=== PATIENT | male | born 1960 | race Caucasian/White ===

== ENCOUNTER 2016-04-19 13:58 | Inpatient (IN) | payer BC ==
[2016-04-19] VITALS (12 sets, daily range): BP systolic 76–152; BP diastolic 58–92
[~2016-04-19] VITALS: Ht 182.9 cm; Wt 78.5 kg
--- NOTE | ~2016-04-19 | H ---
[facility] [place] [address] HISTORY AND PHYSICAL Name: ROWAN CHACON Room #: 546-P ADM IN M.R.#: [id number] Admission: 04/19/16 Attend Phys: Charles Fink MD Discharge: Date of : 62 Report #: [id number] THIS REPORT FOR: //name// CC: Shay Yao MD [facility] Mady Dobson PhD Warren Jackson MD DATE OF SERVICE: 04/19/2016 CHIEF COMPLAINT: Altered mental status. HISTORY OF PRESENT ILLNESS: The patient is a 55-year-old male who approximately 2 weeks ago suffered a stroke. He was found down at home in the garage, crumpled over his walker and taken to [facility] by ambulance. He was down for an unknown period of time. Workup there revealed a small subarachnoid bleed, presumably due to trauma, which required no further intervention. He also had multiple small embolic infarcts in a wide distribution. Extensive workup including echocardiogram, transesophageal echocardiogram, multiple brain scans failed to reveal any other significant findings or source of the microemboli. On presentation, the patient showed a global loss of function and had been put on a ventilator. However, he recovered consciousness within 24 hours and was removed from the ventilator by the following morning. Since that time, he has had significant problems with paranoia and agitation and generalized confusion. It is noteworthy that prior to this stroke, the patient suffered a stroke back in the November or December timeframe in 2016. Subsequent to that, he underwent left carotid endarterectomy here at [facility], successfully. Since his condition stabilized and no other significant findings were made, the patient transferred to the rehab unit at [facility] on April 12 and has been there ever since until today. He was in the rehabilitation unit for the entire period unfortunately because of continuing problems with paranoia and mood control issues. He has failed to make any progress and actually gotten worse. He has significant paranoia continually when he is awake and was seen in consultation by the neurologist, Dr. Houston; the psychiatrist, Dr. Jackson, and subsequently his colleague, Dr. Rosario, as well as by Dr. Vahe Yao from Cardiology and his care was managed by Dr. Clemens. Belatedly, the patient was also seen at my request by Dr. Charles Voss. He does have a significantly elevated sedimentation rate and confirmed by CRP. He is in the midst of a vasculitis workup and it was felt that because of his continuing problems with his mental [address] [place] [address] HISTORY AND PHYSICAL Name: ROWAN CHACON Room #: 546-P [facility] IN M.R.#: [id number] Admission: 04/19/16 Attend Phys: Charles Fink MD Discharge: Date of : 62 Report #: [id number] health that it would be reasonable to initiate a lupus vasculitis therapeutic regimen with 1000 mg of intravenous steroids daily for the next 3 days. Given the patient's underlying paranoia and agitation as well as chronic type 2 diabetes mellitus, it was felt that he could best be managed in an acute care hospital bed setting and he is being admitted at [facility] for treatment as outlined above. He also will be magnetic resonance angiography of his brain to see if any diagnostic evidence can be found there to support the diagnosis. Prior to he is being transferred, a Igor viper venom test came back elevated, but is insufficient in and of itself to make any complete diagnosis. It is suggestive of the presence of lupus anticoagulants, but not diagnostic. PAST MEDICAL HISTORY: Very extensive and includes multiple medical problems including testicular cancer in his 20s and treatment for that including radiation, hypertension, type 2 diabetes mellitus with significant peripheral neuropathy, Peyronie's disease with implantation of testicular implant and that was subsequently removed 5 years later and another one was implanted. The patient does have a history of bipolar affective disorder, some chronic anemia, gastroesophageal reflux disease, recurrent gout, osteoarthritis at multiple sites, especially the lumbar spine with chronic back stiffness and pain. He has recurrent prostatitis. He has a history of psoriasis. There is a history of multiple orthopedic surgeries is the past, history of a sigmoid resection because of a perforated diverticulitis, history of appendectomy and cholecystectomy in the same time several years ago, history of left carotid endarterectomy last December here at [facility], history of dental implants and he has some peripheral arterial disease including left renal stent. He is allergic to PENICILLIN. This causes anaphylactic reaction. 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 This was reversible. Please note, the patient does have a significant history of approximately 50-pound weight loss since last November and has not been eating well prior to this most recent stroke. MEDICATIONS: At the time of this acute care admission include the following: Acetaminophen, allopurinol, alprazolam, aspirin, bisacodyl, cholecalciferol, clopidogrel, colchicine, divalproex, docosahexaenoic acid, docusate, famotidine, ferrous sulfate, Levemir, Humalog, lamotrigine, levothyroxine (for hypothyroidism recently diagnosed), lisinopril, magnesium hydroxide, multivitamins with iron, nicotine gum, oxycodone/acetaminophen 10/325 one tablet every 6 hours as needed for pain, Seroquel, recently increased to 150 mg at bedtime as well as 25 mg by mouth every 4 hours as needed for agitation and confusion, scopolamine patches 1 patch changed every 3 days for chronic dizziness since the stroke the first time, Senokot 1 tablet by mouth daily as needed for constipation, thiamine hydrochloride 100 mg by mouth daily and he has been getting some intravenous fluids containing sodium chloride, because of some dehydration yesterday. [facility] [address] [place] [address] HISTORY AND PHYSICAL Name: ROWAN CHACON Room #: 546-P [facility] IN ..#: [id number] Admission: 04/19/16 Attend Phys: Charles Fink MD Discharge: Date of : 62 Report #: [id number] FAMILY HISTORY: The patient is adopted. SOCIAL HISTORY: The patient is to Nena Fink. 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 He had been a smoker for many years and has been trying to quit recently using an e-cigarette. He drank heavily when he was a young man, but quit about [address] drugs. He has no children and lives in [place]. REVIEW OF SYSTEMS: The patient is at present an unreliable historian. PHYSICAL EXAMINATION: GENERAL: The patient is somewhat cantankerous middle-aged white male who is very suspicious of most everyone he talks to. This has only been going on since the stroke. HEENT: The extraocular muscles are intact. The oropharynx is slightly dry and pink. No lesions, no exudates. Sinuses are nontender. Hearing is grossly normal. NECK: Without adenopathy or thyromegaly or mass or significant other problem. He does have left carotid endarterectomy scar and a slight bruit. LUNGS: Fairly clear bilaterally. The lumbar spine is stiff with minimal tenderness. The lungs are otherwise fairly clear with a prolonged expiratory phase. CARDIOVASCULAR: Regular with a grade 2/6 systolic ejection murmur. ABDOMEN: Soft. Bowel sounds are present, no visceromegaly or masses. Old surgical scars noted. EXTREMITIES: The patient has peripheral pulses that are easily palpated in all 4 distal extremities. Deep tendon reflexes are brisk in the arms and legs. He has significant generalized weakness more noticeable on the right side, especially to right upper extremity than on the left. On motor exam, he is able to ambulate with a roller walker and a great deal of assistance. ASSESSMENT AND PLAN: 1. Stroke, multiembolic with paranoia and pseudobulbar affect. 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 Charles Voss, I will proceed with MRA of this brain and start a very high dose intravenous steroid regimen for the next 3 days. This will require close glucose monitoring and sliding scale in addition to his usual insulin doses. I have spoken with the patient's about steroid range and got her consent to proceed with restraints in the event that they are over needed during this hospital stay. 2. Type 2 diabetes mellitus with peripheral neuropathy. He does have some sensory losses in a stocking distribution in both lower extremities, which I neglected to mention above. [facility] [address] [place] [address] HISTORY AND PHYSICAL Name: ROWAN CHACON Room #: 546-P [facility] IN M.R.#: [id number] Admission: 04/19/16 Attend Phys: Charles Fink MD Discharge: Date of : 62 Report #: [id number] 3. Hypertension. Creatinine 1.9. I suspect the creatinine has bumped up a little bit because of some dehydration. He is currently receiving some IV fluids and will continue them and monitor his electrolytes and renal functions appropriately. If he does have vasculitis, this might explain some of his renal dysfunction. He likely has some chronic kidney disease as well from the presence of hypertension and type 2 diabetes. 4. Suspected vascular dementia. The patient has had a stroke that was documented last year and presence of smaller stroke findings which were clinically silent raises the question whether some of his mental status problems might not be due to a dementia. Obviously treating the underlying causes and helping with the recovery of his physical and mental faculties are most important. 5. Bipolar affective disorder. We will continue with the lamotrigine. It is currently being up tapered back to the 100 mg twice a day that he was previously taking. A note is made of the potential interaction with divalproex. 6. Protein-calorie malnutrition with recent weight loss. This is presumably due to his mental status issues which would probably affecting him significantly since the first stroke. 7. Anemia and chronic inflammation. The patient is currently receiving iron supplements and will need to be reassessed longitudinally with this. 8. Hypothyroidism. The patient just started on levothyroxine recently. His TSH was approximately 6. We will reassess him again in the next 3 months. 9. Recent history of rapid taper off of gabapentin. This is mentioned for the sake of completeness as it may cause significant mental status issues including anxiety and agitation problems. The patient has had an EEG during his rehabilitation stay and this was negative. 10. Gastroesophageal reflux disease, currently fairly stable. 11. History of gout, not currently active. 12. History of osteoarthritis at multiple sites, but especially in the lumbar spine. 13. History of recurrent prostatitis, no evidence of disease at the present time. 14. History of psoriasis. He has good hepatic function at the present time. 15. Distant history of testicular cancer. 16. History of multiple orthopedic surgeries is the past. 17. History of sigmoid resection for perforated diverticulitis in the past. 18. History of carotid endarterectomy on the left side. 19. History of cholecystectomy and appendectomy. 20. History of dental implants. 21. History of Peyronie's disease with penile implants x 2. 22. History of peripheral arterial disease with a left renal stent placement. <ELECTRONICALLY SIGNED> By: Charles Fink MD 04/20/16 2326 [id number] Charles Fink MD /nt
--- NOTE | ~2016-04-19 | EEG ---
[facility] [place] [address] ELECTROENCEPHALOGRAM Name: ROWAN CHACON Room #: 446-P [facility] IN M.R.#: [id number] Admission: 04/19/16 Attend Phys: Charles Fink MD Discharge: 05/03/16 Date of : 62 Report #: [id number] THIS REPORT FOR: //name// CC: Charles Fink DATE OF SERVICE: 04/30/2016 This patient is being evaluated for altered mental status. EEG was done to further evaluate that. EEG was done by placing the electrodes by standard 10-20 system of electrode placement. Both referential and sequential montages were used for recording. Background activity in this patient's EEG is about 8-9 Hz, but it is intermixed with theta range slowing even when the patient is awake. The patient goes to sleep that is associated with bilaterally symmetrical sleep spindle and vertex sharp waves. Throughout the record, no active epileptiform activity was noticed. IMPRESSION: This patient's EEG is intermixed with theta range slowing on both sides. That is a nonspecific abnormality, which can occur with dementia, encephalopathy, effect of psychotropic medication. The abnormality is relatively mild compared to the patient's clinical status. Thank you very much for this referral. <ELECTRONICALLY SIGNED> By: Charlie Dsouza MD 05/08/16 0628 [id number] [id number] Charlie Dsouza MD /nt
--- NOTE | ~2016-04-19 | HC ---
[facility] [place] [address] CONSULTATION Name: ROWAN CHACON Room #: 446-P [facility] IN M.R.#: [id number] Admission: 04/19/16 Attend Phys: Charles Fink MD Discharge: 05/03/16 Date of : 62 Report #: [id number] THIS REPORT FOR: //name// CC: Shay Yao MD [facility] Mady Jackson MD REFERRING PHYSICIAN: Charles Fink M.D. HISTORY OF PRESENT ILLNESS: This is a 55-year-old male patient who was evaluated by me for a complicated history. I saw the patient yesterday evening, but the note is being dictated today because I wanted to talk to the patient's and Dr. Fink, who kindly called me and updated me on this patient's history. I talked to the today and Dr. Fink yesterday. This patient apparently has a bipolar disorder for a long time. He was able to take care of his daily activity and business without much problems till about last year. He suffered a stroke in the left cerebral hemisphere and underwent a carotid endarterectomy. Dr. Fink admission and history indicate that he was admitted to [facility] and was found to have multiple small embolic strokes as well as subarachnoid hemorrhage. No records is available to me from [facility], but as I understand he underwent a transesophageal echocardiogram and multiple brain scans. I assumed there was no documented atrial fibrillation at that time and workup for endocarditis was negative. He continued to have significant medical problems. He is extremely paranoid. He starts a conversation, but cannot stay on that topic for too long and drifts to another topic within a few seconds. That makes most of this conversation irrelevant and disjointed. I cannot get any reliable history in this patient. He did have an MRI of the brain here. I reviewed that and reviewed with the radiologist. He has multiple areas of abnormality, which is most likely secondary to ischemic changes, but other etiologies including demyelination cannot be fully excluded on the basis of MRI, but they are considered unlikely in the presence of acellular CSF. Talking to Dr. Fnik, it would appear that his mentation improved significantly when steroids are given to him. He did undergo a cerebral angiogram and apparently that did not show any vasculitis, but I do not know whether they had a good venous phase to exclude an outside chance of intracranial sinus thrombosis. He continued to be extremely paranoid and is being followed by Psychiatry. [address] [address] CONSULTATION Name: ROWAN CHACON Room #: 446-P [facility] IN M.R.#: [id number] Admission: 04/19/16 Attend Phys: Charles Fink MD Discharge: 05/03/16 Date of : 62 Report #: [id number] REVIEW OF SYSTEMS: Indicate that he does have vascular risk factors which include smoking for long period of time, which he has recently quit. His lipid profile indicates dyslipidemia. He also has a history of hypertension and diabetes as per records. He has numerous other problems which is summarized in Dr. Fink' admission history and physical and was reviewed. PAST MEDICAL HISTORY: Positive for what appeared to be multiple strokes during his admission in [place] and a stroke in December with documented vascular disease. FAMILY HISTORY: Unremarkable. SOCIAL HISTORY: He has a previous history of drinking alcohol, but has not done for a long time and he also has a history of smoking for a long time. PHYSICAL EXAMINATION: Attempted yesterday and today. It was unsuccessful both times. He is extremely paranoid. I cannot do an exam on him because he is constantly crying. Yesterday he was paranoid and will not let me look at many things and intermittently got angry. I do not see any meningeal sign and I will have to carry out an exam some other time. He does not appear to have any documented atrial fibrillation. He is a reasonably well-developed individual who does not have any dysmorphic features of eyes, ears and face. His vital signs indicate a blood pressure of 130/81 and review of his vital signs last few days indicate that his blood pressure has gone some high around 190 or 200, but he never had any low blood pressure recently. Last time, his blood pressure drops was on 04/25/2016 when it was 94. His pulse is 96 and he has been mostly afebrile and his respiration is 20. LABORATORY DATA: I reviewed all his films with the radiologist and some of it is described above. IMPRESSION: The diagnosis in this patient is not clear, but multiple diagnoses need to be considered in this patient. 1. 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 This is probably the most common diagnosis in this circumstance. He has multiple vascular risk factors including previous smoking, diabetes, hypertension. He also has dyslipidemia. Main treatment so far is going to be with antiplatelet as well as statin. The treatment will change if we can either document atrial fibrillation or intracranial sinus thrombosis or any vasculitis. So far, there is no documentation of vasculitis. Idiopathic central nervous system angitis is extremely rare with acellular cerebrospinal fluid, is a tricky diagnosis and can be missed even after extensive workup sometimes. 2. Autoimmune encephalopathy. That needs to be considered in this patient. Reviewing the record, it would appear that this patient did have testicular cancer in the past. I do not know what pathology was in that circumstance, but we need to pull that out. NMDA receptor autoimmune encephalitis occur in female [facility] [address] [place] [address] CONSULTATION Name: ROWAN CHACON Room #: 446-P DIS IN M.R.#: [id number] Admission: 04/19/16 Attend Phys: Charles Fink MD Discharge: 05/03/16 Date of : 62 Report #: [id number] secondary to ovarian cancer and in male secondary to testicular cancer as a perineoplastic process. However, typically they have cellular cerebrospinal fluid and this patient's cerebrospinal fluid is acellular, although the protein is trace high. That is the point again, autoimmune encephalitis and is more in favor of vascular dementia secondary to routine atherosclerotic factor. Diagnosis of Yumiko encephalitis was considered in this patient. That encephalitis occurs without much abnormality of thyroid function. They are diagnosed on the basis of antithyroid antibodies. We will exclude that possibility by sending that workup. 3. Possibility of autoimmune dementia was considered, but again, although the patient has multiple abnormal autoimmune markers, the cerebrospinal is acellular. That is not typical for autoimmune dementia. 4. Medication side effects were considered. His gabapentin was tapered off or discontinued. Withdrawal from gabapentin is extremely, if it ever occurs and that is unlikely to be the causative factor in this patient. He is on scopolamine patch. That can cause delirium. 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 5. Porphyria can cause deliriums and confusion and neuropathy. It is extremely rare that I have never seen a case, although I have sent numerous patients on for porphyria screen. RECOMMENDATION: 1. Continue the management of the vascular risk factor in this patient. He needs antiplatelet as well as statin. We need to ask radiologist to look at the angiogram to make sure that there was a venous phase. If there was a good venous phase, which can exclude the possibility of intracranial sinus thrombosis, then I do not think we need to do anything more in that regard. Otherwise, we can MRV. 2. We will see if the patient's CSF demonstrates any oligoclonal band or IgG index. If it does that, that can indicate autoimmune disorder in this setting. That can also indicate demyelinating disorder, but both these are nonspecific indicators. If these markers are negative, that will reinforce the possibility that the neurological presentation is more likely to be secondary to vascular dementia caused by multiple strokes. 3. We need to pull the record from [place] to make sure they did extensive workup to exclude the possibility of endocarditis including autoimmune related endocarditis. Those are difficult diagnoses to make. Possibility of atrial fibrillation need to be excluded, but I am sure they did some workup to exclude that possibility and the history does not look very typical for that. Those MRI need to be reviewed by some neuroradiologist to make sure that those strokes were embolic, because stroke secondary to small vessel disease can resemble embolic stroke and sometime are difficult to distinguish one from another. His DRVT was high. If he is hypercoagulable, that will be predisposing him for stroke, but that is typically venous stroke, not arterial or small vessel [facility] [address] [place] [address] CONSULTATION Name: ROWAN CHACON Room #: 446-P DIS IN M.R.#: [id number] Admission: 04/19/16 Attend Phys: Charles Fink MD Discharge: 05/03/16 Date of : 62 Report #: [id number] stroke. Once again that question can be addressed by hematology or rheumatology. 4. He is on Lovenox. He did not let me examine him very much. He did have a spinal tap, but that was 3 days ago, we can just watch him closely. 5. Celiac disease has been found to see DIVE SUPERVISOR symptoms. I notice that one time, he did have some GI symptoms and I do not know whether it is worth checking him for celiac disease or not, or whether he has been checked in the past. I did not order that workup on him. I will discuss this patient with Dr. Fink tomorrow and I am not here tomorrow but I will ask Dr. Houston who has seen this patient to follow up from tomorrow. More than 70 minutes of time was spent taking care of this patient and majority of that time was spent in reviewing his records and images and discussing the case with his family and other health inspector health care facilities <ELECTRONICALLY SIGNED> By: Charlie Dsouza MD 05/08/16 0627 [id number] Charlie Dsouza MD /nt
--- NOTE | ~2016-04-19 | CNG ---
[facility] [address] [place] [address] CYTO-NONGYN REPORT PROCEDURE Name: DAVID CHACON Room #: 446-P ADM IN M.R.#: [id number] Admission: 04/19/16 Date of : 62 Discharge: Report #: [id number] Path Case #: [id number] CYTOPATHOLOGY REPORT COLLECTION DATE: 04/27/2016 RECEIVED DATE: 04/27/2016 SUBMITTING PHYS: Dr.Mark Fink OTHER PHYS: CLINICAL HISTORY: Lupus Vasculitis SPECIMEN(S) RECEIVED: A.Cerebrospinal fluid * * * * * * * * * * * * FINAL DIAGNOSIS: A. Cerebrospinal fluid: - No malignant cells identified. Small mature lymphocytes identified, history of lupus vasculitis. Negative for viral inclusions. PATHOLOGIST: Annabelle Nam M.D. REPORT ELECTRONICALLY SIGNED BY: Annabelle Nam M.D. DATE/TIME: 04/28/2016 16:53 * * * * * * * * * * * * GROSS PATHOLOGY: A. Cerebrospinal fluid: The specimen is submitted unfixed, labeled "David Chacon". Received by the Cytology Department is four mL of clear colorless fluid. One ThinPrep slide was prepared. (mm 04.27.2016) STAFF CERTIFIED NURSE MIDWIFE(S): ALVINO Marshall([facility]) INITIAL CPT CODE(S): A; 45897 Professional services performed by [facility] at [address], [place] [address] Technical services performed by [facility] at [address] [place] [address]., [address], [place] [address]. [facility] [address] [place] [address], [address] [place] [address] [place] [address] CYTO-NONGYN REPORT PROCEDURE Name: DAVID CHACON FARHAT Room #: 446-P ADM IN M.R.#: [id number] Admission: 04/19/16 Date of : 62 Discharge: Report #: [id number] Path Case #: [id number] PHONE: [phone] DIRECTOR: Jose Clarke M.D. * * * END OF REPORT * * *
[~2016-04-19 13:58] MED LIST: ACCUNEB SO1.25 MG/1; ADVAIR HFA115 MCG/21 INH; ALLOPURINOL 30300 M1 PO; ALLOPURINOL 30300 M2 PO; AMLODIPINE BESYL5 MG PO; APIDRA; ASPIR 8181 MG PO; ASPIRIN EC81 M1 PO; BACTRIM DS TAB1 EACH PO; CENTRUM SILVER1 EAC2 PO; CLEOCIN HCL150 MG; COLCHICINE 0.60.6 M1 PO; COLCRYS0.6 MG PO; CRESTOR10 MG PO; DOLOPHINE HCL5 MG PO; DOXYCYCLINE 10100 M1 PO; FAMOTIDINE20 MG/2 M2 PO; FISH OIL 1,001000 M2 PO; FLEXERIL PO; FLORANEX TABLE1 EACH PO; FLUVIRIN 245 MCG/0.8 IM; FOLIC ACID1 MG PO; GLYCOLAX POWDER17 G1 PO; HYDROCHLOROTHIA25 M2 PO; HYDROCODON-ACE1 EAC7 PO; HYDROCODONE-AP1 EAC6 PO; LAMICTAL XR100 MG PO; LAMICTAL100 MG PO; LANTUS SOL100 UNIT/1 SQ; LANTUS SUBQ; LANTUS100 UNIT/M SUBQ; LEVAQUIN 500 M500 M2 PO; LISINOPRIL10 MG PO; LISINOPRIL20 MG PO; LOPRESSOR50 PO; MAGNESIUM OXID400 MG PO; MIRALAX17 GM PO; MOBIC7.5 MG PO; MULTI-VITAMIN1 EAC5 PO; NEURONTIN 300300 M1 PO; NEURONTIN600 MG PO; NEXIUM40 MG PO; NICOTINE GUM2 MG MUCOUS MEM; NORVASC 5 MG TAB5 MG PO; NORVASC10 MG PO; NOVOLOG FL100 UNIT/M SUBQ; NOVOLOG100 UNIT/1 SUBQ; OMEPRAZOLE 20 M20 M1 PO; OXYCODONE HCL5 M1 PO; OXYCODONE PO; OXYCONTIN CR 2020 MG PO; OXYCONTIN10 M1 PO; OXYCONTIN10 MG PO; OXYCONTIN20 M1 PO; PAXIL10 MG; PLAVIX 75 MG TA75 M1 PO; POTASSIUM20 PO; PREDNISONE 10 M10 MG PO; PREDNISONE 5 MG5 M1; PREDNISONE 5 MG5 M1 PO; PRILOSEC 20 MG20 MG PO; PROBIOTIC1 EAC1 PO; TIZANIDINE HCL 22 M1 PO; TRANSDERM-SCO1 PATC1; TRANSDERM-SCO1 PATC1 TD; TYLENOL325 MG PO; VENTOLIN HFA 1818 GM INH; VOLTAREN GEL 1100 G1 TOP; XANAX 0.5 MG0.5 M1 PO; ZOFRAN ODT4 MG PO
[2016-04-19] MEDS ORDERED: ADULT LOW DOSE81 MG PO (14:12)
[2016-04-19] MEDS ORDERED: SEROQUEL 25 MG25 M1 PO (14:12)
[2016-04-19] MEDS ORDERED: ALLOPURINOL 30300 M1 PO (14:12)
[2016-04-19] MEDS ORDERED: FISH OIL 1,0001 EAC5 PO (14:12)
[2016-04-19] MEDS ORDERED: DEPAKOTE 250MG250 M1 PO (14:12)
[2016-04-19] MEDS ORDERED: SENNA PO (14:12)
[2016-04-19] MEDS ORDERED: TRANSDERM-SCO1 PATC1 TRANSDERM (14:12)
[2016-04-19] MEDS ORDERED: PEPCID20 MG PO (14:12)
[2016-04-19] MEDS ORDERED: BISAC-EVAC10 MG RECTAL (14:12)
[2016-04-19] MEDS ORDERED: HUMALOG100 UNIT/1 SUBQ (14:12)
[2016-04-19] MEDS ORDERED: SEROQUEL XR150 M1 PO (14:12)
[2016-04-19] MEDS ORDERED: COLCHICINE0.6 MG PO (14:12)
[2016-04-19] MEDS ORDERED: LEVOTHYROXINE0.05 MG PO (14:12)
[2016-04-19] MEDS ORDERED: VITAMIN B-1100 M2 PO (14:12)
[2016-04-19] MEDS ORDERED: LANTUS100 UNIT/M SUBQ (14:12)
[2016-04-19] MEDS ORDERED: ALPRAZOLAM 0.50.5 M1 PO ×2 (14:12)
[2016-04-19] MEDS ORDERED: LAMICTAL 25 MG25 M1 PO (14:12)
[2016-04-19] MEDS ORDERED: VITAMIN D1000 UNI1 PO (14:12)
[2016-04-19] MEDS ORDERED: IRON325 PO (14:12)
[2016-04-19] MEDS ORDERED: PERCOCET 10-321 EACH PO (14:12)
[2016-04-19] MEDS ORDERED: A THRU Z ADVAN1 EAC1 PO (14:12)
[2016-04-19] MEDS ORDERED: BENAZEPRIL HCL20 MG PO (14:16)
[2016-04-19] MEDS ORDERED: ACETAMINOPHEN325 M1 PO (14:18)
[2016-04-20 01:00] VITALS: BP 120/69
[2016-04-20 02:00] VITALS: BP 120/69
[2016-04-20 03:00] VITALS: BP 159/69
[2016-04-20 05:23] LABS: HEMATOCRIT 29.9 % (42.0-52.0); MCH 29.7 pg (26.0-34.0); MCHC 33.4 g/dL (28.0-37.0); RBC 3.36 mil/uL (4.50-6.00); RDW 15.6 % (10.5-14.5); WBC 8.1 thou/uL (4.0-11.0)
[2016-04-20 05:35] LABS: CALCIUM 9.2 mg/dL (8.5-10.1); CREATININE 1.8 mg/dL (0.6-1.3); POTASSIUM 4.6 mmol/L (3.5-5.1)
[2016-04-20 08:36] VITALS: BP 166/85
[2016-04-20 16:00] VITALS: BP 168/82
[2016-04-20 19:35] VITALS: BP 97/62
[2016-04-21 08:20] VITALS: BP 117/82
[2016-04-21 15:30] VITALS: BP 102/68
[2016-04-21 22:00] VITALS: BP 106/66
[2016-04-22 05:53] VITALS: BP 101/58
[2016-04-22 05:54] VITALS: BP 101/58
[2016-04-22 05:59] LABS: HEMATOCRIT 29.3 % (42.0-52.0); HEMOGLOBIN 9.9 gm/dL (14.0-18.0); MCH 29.4 pg (26.0-34.0); MCHC 33.7 g/dL (28.0-37.0); MCV 87.3 fL (80.0-100.0); RBC 3.36 mil/uL (4.50-6.00); RDW 15.2 % (10.5-14.5); WBC 13.9 thou/uL (4.0-11.0)
[2016-04-22 06:19] LABS: CALCIUM 9.5 mg/dL (8.5-10.1); CREATININE 1.4 mg/dL (0.6-1.3); POTASSIUM 4.2 mmol/L (3.5-5.1)
[2016-04-22 07:47] VITALS: BP 132/84
[2016-04-22 09:00] VITALS: BP 144/82
[2016-04-22 16:11] VITALS: BP 144/82
[2016-04-23 05:30] VITALS: BP 184/113
[2016-04-23 20:10] VITALS: BP 184/91
[2016-04-24 07:10] LABS: HEMATOCRIT 32.6 % (42.0-52.0); HEMOGLOBIN 10.9 gm/dL (14.0-18.0); MCH 29.5 pg (26.0-34.0); MCHC 33.6 g/dL (28.0-37.0); MCV 87.8 fL (80.0-100.0); RBC 3.71 mil/uL (4.50-6.00); RDW 15.1 % (10.5-14.5); WBC 9.2 thou/uL (4.0-11.0)
[2016-04-24 07:29] LABS: CALCIUM 9.4 mg/dL (8.5-10.1); CREATININE 1.2 mg/dL (0.6-1.3); POTASSIUM 3.9 mmol/L (3.5-5.1); TOTAL BILIRUBIN 0.3 mg/dL (<0.1-1.0)
[2016-04-24 07:31] VITALS: BP 118/67
[2016-04-24 11:05] VITALS: BP 126/69
[2016-04-24 16:29] VITALS: BP 143/96
[2016-04-24 19:16] VITALS: BP 138/85
[2016-04-24 23:06] VITALS: BP 138/85
[2016-04-25 05:04] VITALS: BP 133/78
[2016-04-25 07:44] VITALS: BP 163/78
[2016-04-25 13:05] VITALS: BP 84/52
[2016-04-25 16:54] VITALS: BP 95/64
[2016-04-25 20:00] VITALS: BP 151/61
[2016-04-26] VITALS (9 sets, daily range): BP systolic 117–200; BP diastolic 63–101
[2016-04-26 10:41] LABS: ABSOLUTE NEUTROPHILS 8.6 thou/uL (1.4-8.2); BASOPHILS 0.5 % (0.0-2.0); EOSINOPHILS 1.7 % (0.0-3.0); HEMATOCRIT 32.7 % (42.0-52.0); HEMOGLOBIN 10.8 gm/dL (14.0-18.0); LYMPHOCYTES 33.1 % (24.0-44.0); MCH 29.4 pg (26.0-34.0); MCV 88.8 fL (80.0-100.0); MONOCYTES 4.6 % (1.0-8.0); PLATELET COUNT 239 thou/uL (150-400); POLYS 60.1 % (36.0-66.0); RBC 3.69 mil/uL (4.50-6.00); RDW 15.3 % (10.5-14.5); WBC 14.4 thou/uL (4.0-11.0)
[2016-04-26 10:44] LABS: MANUAL DIFF NO
[2016-04-26 10:54] LABS: APTT 26.6 Seconds (24.5-32.8); INR 1.1; PROTIME 11.4 Seconds (9.3-11.4)
[2016-04-26 10:59] LABS: CALCIUM 8.6 mg/dL (8.5-10.1); CREATININE 1.6 mg/dL (0.6-1.3); POTASSIUM 3.9 mmol/L (3.5-5.1)
[2016-04-26 13:12] LABS: ANTI-DNA SCREEN <1 IU/mL (0-9); ANTI-RNP <0.2 AI (0.0-0.9)
[2016-04-27] VITALS (8 sets, daily range): BP systolic 170–193; BP diastolic 89–104
[2016-04-27 05:12] LABS: HEMATOCRIT 31.7 % (42.0-52.0); HEMOGLOBIN 10.5 gm/dL (14.0-18.0); MCH 29.7 pg (26.0-34.0); MCHC 33.2 g/dL (28.0-37.0); MCV 89.4 fL (80.0-100.0); RBC 3.54 mil/uL (4.50-6.00); RDW 15.4 % (10.5-14.5)
[2016-04-27 05:24] LABS: CALCIUM 8.7 mg/dL (8.5-10.1); CREATININE 1.1 mg/dL (0.6-1.3); POTASSIUM 4.1 mmol/L (3.5-5.1)
[2016-04-27 11:42] LABS: CSF GLUCOSE 82 mg/dL (40-70); CSF PROTEIN 67 mg/dL (15-45)
[2016-04-27 11:44] LABS: CSF CLARITY CLEAR; CSF COLOR COLORLESS; CSF WBC 0 /mm3 (0-10); MANUAL DIFF NO; NUMBER OF TUBES 4; VOLUME 11 ml
[2016-04-28] VITALS (9 sets, daily range): BP systolic 132–149; BP diastolic 70–84
[2016-04-28 05:58] LABS: CALCIUM 9.4 mg/dL (8.5-10.1); CREATININE 1.1 mg/dL (0.6-1.3); POTASSIUM 4.6 mmol/L (3.5-5.1)
[2016-04-29] VITALS (8 sets, daily range): BP systolic 122–142; BP diastolic 74–90
[2016-04-30 05:20] VITALS: BP 137/81
[2016-04-30 08:55] VITALS: BP 145/93
[2016-04-30 13:42] VITALS: BP 130/81
[2016-04-30 20:13] VITALS: BP 131/88
[2016-04-30 21:37] LABS: URINE BILIRUBIN NEGATIVE (Negative); URINE BLOOD 2+ (Negative); URINE COLOR YELLOW; URINE GLUCOSE-RANDOM* TRACE (Negative); URINE KETONES NEGATIVE (Negative); URINE LEUKOCYTES-REFLEX 1+ (Negative); URINE PROTEIN (DIPSTICK) TRACE (Negative); URINE UROBILINOGEN 0.2 E.U./dl (0.2-1.0)
[2016-04-30 21:49] LABS: CRYSTALS None Seen /LPF (None Seen); SQUAMOUS None Seen /LPF (0-3)
[2016-04-30 21:50] LABS: TRANSITIONAL EPITHEL CELL 0-3 Few /LPF (None Seen)
[2016-04-30 21:51] LABS: CASTS None Seen /LPF (None Seen); RENAL EPITHELIAL CELLS 0-3 Few /LPF (None Seen)
[2016-05-01] VITALS (8 sets, daily range): BP systolic 98–170; BP diastolic 78–94
[2016-05-01 05:21] LABS: HEMATOCRIT 33.5 % (42.0-52.0); HEMOGLOBIN 11.1 gm/dL (14.0-18.0); MCH 29.7 pg (26.0-34.0); MCHC 33.3 g/dL (28.0-37.0); MCV 89.3 fL (80.0-100.0); RBC 3.75 mil/uL (4.50-6.00); RDW 15.7 % (10.5-14.5); WBC 16.2 thou/uL (4.0-11.0)
[2016-05-01 06:21] LABS: ALBUMIN 2.9 g/dL (3.4-5.0); CALCIUM 9.5 mg/dL (8.5-10.1); CREATININE 1.3 mg/dL (0.6-1.3); POTASSIUM 3.8 mmol/L (3.5-5.1); TOTAL BILIRUBIN 0.3 mg/dL (<0.1-1.0); TOTAL PROTEIN 6.6 g/dL (6.4-8.2)
[2016-05-01 15:11] LABS: CSF IgG 5.8 mg/dL (0.0-8.6)
[2016-05-01 16:07] LABS: MYELIN BASIC PROTEIN 4.3 ng/mL (0.0-1.2)
[2016-05-02] VITALS (7 sets, daily range): BP systolic 121–170; BP diastolic 74–100
[2016-05-03 04:15] VITALS: BP 111/47
[2016-05-03 06:20] VITALS: BP 148/91
[2016-05-03 11:47] VITALS: BP 131/72
[2016-05-03] MEDS ORDERED: CALTRATE-600 W1 EACH PO (12:23)
[2016-05-03] MEDS ORDERED: PREDNISONE 20 M20 M1 PO (12:23)
[2016-05-03] MEDS ORDERED: GLUTOSE GEL 1515 G1 PO (12:23)
[2016-05-03] MEDS ORDERED: DEPAKOTE500 MG PO (12:23)
[2016-05-03] MEDS ORDERED: ENOXAPARIN40 MG/0.1 SUBQ (12:23)
[2016-05-03] MEDS ORDERED: GLUCAGEN1 MG IM (12:23)
[2016-05-03] MEDS ORDERED: DEXTROSE 5025 GM/SYR IV PUSH (12:23)
[2016-05-03] MEDS ORDERED: SEROQUEL 50 MG50 M1 PO (12:38)
[2016-05-03] MEDS ORDERED: GLUCOSE4 GM PO (12:38)
[2016-05-03] MEDS ORDERED: SEROQUEL XR 20200 MG PO (12:38)
[2016-05-03] MEDS ORDERED: HYDROCODON-ACE1 EAC7 PO (12:38)
[2016-05-03] MEDS ORDERED: LANTUS100 UNIT/M SUBQ (12:38)
[2016-05-03] MEDS ORDERED: ONDANSETRON HCL4 M1 IV PUSH (12:38)
== END 2016-05-03 17:55 | DRG 97 ==
LOC: 5S 13:58 → 4S 04-26 16:32
PROVIDERS: Internal Medicine; Internal Medicine Rheumatology; Psychiatry & Neurology Neuromuscular Medicine; Radiology Vascular & Interventional Radiology
PROC: B3161ZZ Fluoroscopy of Right Internal Carotid Artery using Low Osmolar Contrast (ICD-10-PCS; principal; 2016-04-26)
PROC: B3141ZZ Fluoroscopy of Left Common Carotid Artery using Low Osmolar Contrast (ICD-10-PCS; principal; 2016-04-26)
PROC: B31Q1ZZ Fluoroscopy of Cervico-Cerebral Arch using Low Osmolar Contrast (ICD-10-PCS; principal; 2016-04-26)
PROC: B31F1ZZ Fluoroscopy of Left Vertebral Artery using Low Osmolar Contrast (ICD-10-PCS; principal; 2016-04-26)
PROC: B3111ZZ Fluoroscopy of Right Brachiocephalic-Subclavian Artery using Low Osmolar Contrast (ICD-10-PCS; 2016-04-26)
PROC: B3171ZZ Fluoroscopy of Left Internal Carotid Artery using Low Osmolar Contrast (ICD-10-PCS; 2016-04-26)
PROC: B3121ZZ Fluoroscopy of Left Subclavian Artery using Low Osmolar Contrast (ICD-10-PCS; 2016-04-26)
PROC: B3131ZZ Fluoroscopy of Right Common Carotid Artery using Low Osmolar Contrast (ICD-10-PCS; 2016-04-26)
PROC: B3101ZZ Fluoroscopy of Thoracic Aorta using Low Osmolar Contrast (ICD-10-PCS; 2016-04-26)
PROC: B44FZZZ Ultrasonography of Right Lower Extremity Arteries (ICD-10-PCS; 2016-04-26)
PROC: B01B1ZZ Fluoroscopy of Spinal Cord using Low Osmolar Contrast (ICD-10-PCS; 2016-04-27)
PROC: 009U3ZX Drainage of Spinal Canal, Percutaneous Approach, Diagnostic (ICD-10-PCS; 2016-04-27)
DX: G04.81 Other encephalitis and encephalomyelitis (principal); I63.211 Cerebral infarction due to unspecified occlusion or stenosis of right vertebral artery; F05 Delirium due to known physiological condition; I67.7 Cerebral arteritis, not elsewhere classified; E46 Unspecified protein-calorie malnutrition; N39.0 Urinary tract infection, site not specified; E80.20 Unspecified porphyria; I65.22 Occlusion and stenosis of left carotid artery; E78.00 Pure hypercholesterolemia, unspecified; F22 Delusional disorders; F48.2 Pseudobulbar affect; I10 Essential (primary) hypertension; E86.0 Dehydration; F01.50 Vascular dementia, unspecified severity, without behavioral disturbance, psychotic disturbance, mood disturbance, and anxiety; E11.42 Type 2 diabetes mellitus with diabetic polyneuropathy; I69.918 Other symptoms and signs involving cognitive functions following unspecified cerebrovascular disease; E11.51 Type 2 diabetes mellitus with diabetic peripheral angiopathy without gangrene; M10.9 Gout, unspecified; K74.60 Unspecified cirrhosis of liver; M47.896 Other spondylosis, lumbar region; K21.9 Gastro-esophageal reflux disease without esophagitis; F10.21 Alcohol dependence, in remission; F31.9 Bipolar disorder, unspecified; I25.10 Atherosclerotic heart disease of native coronary artery without angina pectoris; D63.8 Anemia in other chronic diseases classified elsewhere; E03.9 Hypothyroidism, unspecified; I95.1 Orthostatic hypotension; E78.5 Hyperlipidemia, unspecified; N48.6 Induration penis plastica; D72.829 Elevated white blood cell count, unspecified; F41.9 Anxiety disorder, unspecified; K75.81 Nonalcoholic steatohepatitis (NASH); T38.0X5A Adverse effect of glucocorticoids and synthetic analogues, initial encounter; Y92.89 Other specified places as the place of occurrence of the external cause; Z98.811 Dental restoration status; Z87.01 Personal history of pneumonia (recurrent); Z90.49 Acquired absence of other specified parts of digestive tract; Z68.23 Body mass index [BMI] 23.0-23.9, adult; Z88.6 Allergy status to analgesic agent; Z88.0 Allergy status to penicillin; Z88.2 Allergy status to sulfonamides; Z87.442 Personal history of urinary calculi; Z79.899 Other long term (current) drug therapy; Z85.47 Personal history of malignant neoplasm of testis; Z79.4 Long term (current) use of insulin; Z87.891 Personal history of nicotine dependence

== ENCOUNTER 2016-05-03 16:15 | Inpatient (IN) | payer BC ==
[~2016-05-03] VITALS: Ht 172.7 cm; Wt 73.2 kg
--- NOTE | ~2016-05-03 | HC ---
[facility] [place] [place] [address] CONSULTATION Name: ROWAN CHACON Room #: 503-P ADM IN M.R.#: [id number] Admission: 05/03/16 Attend Phys: Shay Clemens MD Discharge: Date of : 62 Report #: [id number] THIS REPORT FOR: //name// CC: Shay Fink DATE OF SERVICE: 05/06/2016 ATTENDING PHYSICIAN: Shay Clemens M.D. RAIL ENGINEER: Benjamin Dobson, PhD. CLINICAL PRESENTATION: The patient is a 55-year-old male readmitted to the rehabilitation unit for a comprehensive inpatient rehabilitation program. The patient has had a deterioration in functional status and carries a diagnosis of multiple embolic strokes, bipolar affective disorder and paranoia, diabetes mellitus type 2, peripheral neuropathy, suspected vascular dementia and renal insufficiency. He has had a complicated medical course. Patient initially was admitted to rehabilitation and then transferred off the unit secondary to a vasculitis workup. He has been readmitted to continue his inpatient rehabilitation program. His assessment on admission to rehab includes autoimmune encephalitis, multiple cerebrovascular accidents, bipolar affective disorder with paranoia, type 2 diabetes mellitus with peripheral neuropathy, recent history of rapid taper of gabapentin, history of gout, history of osteoarthritis in multiple sites, recurrent prostatitis, history of sigmoid resection for diverticulitis, history of left carotid endarterectomy, history of Peyronie's disease with penile implants times 2 and a history of peripheral arterial disease with left renal stent placement. A complete description of his medical condition, history and medications can be found in his medical record. Neuropsychological consultation was requested to provide assistance in the assessment of cognitive and emotional status and to provide recommendations and services. The patient was seen for an initial assessment upon his admission to the rehabilitation unit on 04/15/2016. He was living with his in their home prior to this recent deterioration in functioning. He has no children. The patient is the [id number] of Dr. Charles Fink. He has a very supportive family. 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 TECHNIQUES UTILIZED: Clinical interview, review of medical records, staff consultation and behavioral observation, Mini Mental Status Exam 2 standard version, abstract reasoning assessment and verbal fluency (letter and category). EXAMINATION FINDINGS: The patient was alert and cooperative with the [facility] [address] [place] [address] CONSULTATION Name: ROWAN CHACON Room #: 503-P [facility] IN M.R.#: [id number] Admission: 05/03/16 Attend Phys: Shay Clemens MD Discharge: Date of : 62 Report #: [id number] assessment. He has been presenting with intermittent confusion and disorientation during his rehabilitation admission. His behavior is described as agitated with temper outbursts with periods of crying and expressions of remorse. Intermittent emotional lability is described as severe with continued delusional ideation. On the day of my evaluation, he is reported to have been labile with periods of agitation and temper outbursts. At this time, he is feeling remorse and guilt over earlier behavior in which he lost his temper. The patient continues as tearful and emotional. He is unable to accurately describe events regard his recent hospitalization. The patient was unable to state the reason for his hospitalization or describe aspects of his recent medical treatment. The patient is unable to identify factual content of daily activity versus delusional ideation. Continued delirium is suggested. The patient reports difficulty with sleep and fatigue. However, he is an inaccurate historian in regard to cognitive and emotional symptoms. Frequent statements in regard to feelings of guilt about a recent temper outburst is expressed. His performance on the MMSE 2 brief version was extremely low with a raw score of 10/16. He was 3/3 for initial registration, 3/5 for orientation to time, 4/[address] and 0/3 for immediate recall of 3 items after a brief time delay and distraction. Performance on the MMSE 2 standard version was extremely low with a raw score of 18/30. He was 1/5 for serial 7's. He was 2/2 for naming, 1/1 for repetition and 3/3 for auditory comprehension. He was able to read and follow a single command. The patient was unable to dictate a sentence. Upper extremity deficits are noted and he was unable to copy a simple geometric design. Category fluency was extremely low with a raw score of 3. The patient was unable to comply with letter fluency because of severe deficits in generative speech, thought organization, planning and problem solving. Abstract reasoning was 3/8 suggesting a high level of impairment in abstract judgment. The patient is able to indicate appropriate procedures for calling for help when necessary during his hospitalization. DIAGNOSTIC IMPRESSION: Delirium, with mixed level of activity, chronic. Major neurocognitive disorder due to vascular disease (dementia), with intermittent agitation and irritability, moderate to severe (severe cognitive [facility] [address] [place] [address] CONSULTATION Name: ROWAN CHACNO Room #: 503-P [facility] IN M.R.#: [id number] Admission: 05/03/16 Attend Phys: Shay Clemens MD Discharge: Date of : 62 Report #: [id number] dysfunction). Bipolar disorder, mixed with psychotic features. Remote history of alcohol abuse. RECOMMENDATIONS: He is requiring psychiatric hospitalization at this time. His erratic and agitated behavior precede tearful episodes to an extent that suggests attempts at manipulating his environment without a productive purpose. The patient will require a supportive and well structured environment. Intermittent delirium will likely interfere with his recall, judgment, planning and problem solving. Delusional ideation along intermittent paranoid statements should be challenged gently with reality orientation. Redirection of attention to location, purpose of therapy and treatment and reason for hospitalization may help provide reassurance. The use of relaxation techniques will also be helpful. When agitated, the patient should be encouraged to focus on breathing and strategies to manage anxiety through distraction and reassurance. I will continue to follow during his hospitalization. Along with psychiatric hospitalization for stablization of mood and behavior, disability is indicated for employment as well as 24-hour care to maintain safety. Thank you very much for allowing me to provide the consultation on this patient. <ELECTRONICALLY SIGNED> By: Benjamin Dobson, PhD 05/07/16 1528 1548 2233 Benjamin Dobson, PhD /nt
--- NOTE | ~2016-05-03 | H ---
[facility] [place] [address] [place] [address] HISTORY AND PHYSICAL Name: ROWAN CHACON Room #: 503-P ADM IN M.R.#: [id number] Admission: 05/03/16 Attend Phys: Shay Clemens MD Discharge: Date of : 62 Report #: [id number] THIS REPORT FOR: //name// CC: Shay Fink DATE OF SERVICE: 05/04/2016 HISTORY OF PRESENT ILLNESS: The patient is readmitted for acute in-hospital inpatient rehabilitation. Please see the prior admission dictation. He has a history of multiple embolic strokes with bipolar affective disorder with paranoia, diabetes mellitus type 2, peripheral neuropathy, suspected vascular dementia and renal insufficiency. He had been on the acute inpatient rehab lee, but had issues with altered mental status and had continued paranoia. He was seen by neurology, psychiatry, cardiology and input was obtained from rheumatology. He had a significantly elevated sedimentation rate and confirmed by CRP. He was transferred off the rehab lee and underwent the vasculitis workup. He was given a 1 gram dose of IV steroids daily. He was diagnosed with autoimmune encephalitis. He further stabilized from a cognitive perspective and was tolerating therapies better and was felt to be ready for transfer back for acute in-hospital inpatient rehabilitation. PAST MEDICAL HISTORY: Includes the prior CVA with residual right-sided weakness from November 2015, prior carotid endarterectomy on the left, diabetes mellitus type 2, hypertension, gout, GERD, bipolar affective disorder, sigmoid resection and history of Peyronie disease. MEDICATIONS: Please see the full medication listing. Each of these was individually reconciled. This includes the list of his medications as well as vitamin and mineral supplements, [id number]-[id number], etc. SOCIAL HISTORY: He lives with his , 2-suri house, could stay on one floor prior to admission. He had been independent with gait with a roller walker. He used the roller walker as a residual from his prior CVA. works during the day. The patient had been able to care for himself at home. REVIEW OF SYSTEMS: Did not offer any current complaints of chest pain, shortness of breath or abdominal discomfort. PHYSICAL EXAMINATION: GENERAL: The patient was seen earlier. He was sleepy, but would arouse. VITAL SIGNS: Last recorded temperature 98.5, pulse 69, respirations 18 and blood pressure 120/77. HEENT: The patient's facies appeared to be symmetric. HEENT appear to be benign. CHEST: Sounded clear to auscultation. [facility] [address] [place] [address] HISTORY AND PHYSICAL Name: ROWAN CHACON Room #: 503-P [facility] IN [facility].#: [id number] Admission: 05/03/16 Attend Phys: Shay Clemens MD Discharge: Date of : 62 Report #: [id number] CARDIAC EXAMINATION: Regular rate and rhythm. ABDOMEN: Bowel sounds positive, nontender. GENITOURINARY: Deferred. RECTAL EXAMINATION: Deferred. EXTREMITIES: Functional range of motion of the upper and lower extremities: Left upper extremity strength is probably a grade 4- to 4/5. Right upper extremity appears weaker, had strength only a grade 3 to 3+/5. Strength appears to be a grade 4- to the right lower extremity and more of a grade 4 to 4-, left lower extremity. I did not adequately assess sensation as he was rather sleepy. He has been needing assistance with basic functional mobility skills. ASSESSMENT: A 55-year-old white male with the following problem list: 1. Autoimmune encephalitis. 2. Multiple cerebrovascular accidents. 3. Bipolar affective disorder with paranoia. 4. Type 2 diabetes mellitus with peripheral neuropathy. 5. Recent history of rapid taper off of gabapentin. 6. History of gout. 7. History of osteoarthritis in multiple sites. 8. History of recurrent prostatitis. 9. History of sigmoid resection for diverticulitis that was perforated in the past. 10. History of left carotid endarterectomy. 11. History of a Peyronie disease, with penile implants times 2. 12. History of peripheral arterial disease with left renal stent placement. PLAN: The patient is admitted for acute in-hospital inpatient rehabilitation. From a post-admission physician evaluation perspective, there are no relevant changes since the preadmission screening. Please see the above review of prior and current medical and functional conditions and comorbidities. Please see the patient's previous and current functional status. As far as risk of complications, the patient has multiple medical comorbidities as noted above. Initial plan of care involves the interdisciplinary acute inpatient rehabilitation program with the goal of maximizing the patient's functional independence so that he can hopefully return back home with his . Prognosis is reasonably good. Estimated length of stay will depend upon how he does in his therapies. Potential barriers would include his multiple medical comorbidities as noted above. We will have the multiple professional employer consultant physicians continue to follow while he is on the acute inpatient rehab lee. <ELECTRONICALLY SIGNED> By: Shay Clemens MD 05/08/16 1455 1130 1223 Shay Clemens MD /nt
--- NOTE | ~2016-05-03 | HC ---
[facility] [place] [address] [place] [address] CONSULTATION Name: ROWAN CHACON Room #: 503-P ADM IN M.R.#: [id number] Admission: 05/03/16 Attend Phys: Shay Clemens MD Discharge: Date of : 62 Report #: [id number] THIS REPORT FOR: //name// CC: Shay Fink ASSESSMENT: Patient seen for follow up assessment. He was cooperative and engaging during the interview. Patient reports feeling confident about his progress in therapies and reaching goals toward independence. His thoughts were logical and goal oriented. There was no report of psychotic symptoms at the time of my interview. However, he is reported to have intermittent periods in which he describes visual hallucinations during therapies. His functioning during therapies is described as very inconsistent. Additionally, nursing described a recent incident at night in which he undressed and urinated on the floor of his room. DIAGNOSTIC IMPRESSION: Major Neurocognitive Disorder, due to vascular disease, with intermittent agitation and irritability, extent to be determined (likely moderate) Bipolar disorder with psychotic features Unspecified Sleep Disorder (patient reported to have remained awake throughout night) RECOMMENDATIONS: The patient may benefit from a return home and involvement in a psychiatric day treatment program. He appears amenable to further psychiatric management and a day program may offer supervision and structure during the day. Intermittent acting out behavior may be an expression of disatisfaction regarding inpatient psychiatric option. Additionally, he appears to experience anxiety in regard to change which may also be impacting his behavior and creating inconsistency. He is most likely wanting to return home rather than admit to inpatient psychiatry. However, intensive psychiatric management to assist with behavioral control is necessary. A psychiatric day treatment program that allows him to return home may positively impact his behavior to the extent of increasing consistency during therapies. A followup neuropsychological assessment approximately three months post-discharge is indicated to clarify the severity of his neurocognitive deficits. Patient will require assistance in the managment of his medication, nutrition and financial decision making. [facility] [address] [place] [address] CONSULTATION Name: ROWAN CHACON Room #: 503-P ADM IN ..#: [id number] Admission: 05/03/16 Attend Phys: Shay Clemens MD Discharge: Date of : 62 Report #: [id number] Thank you for allowing me to provide the consultation on this patient. <ELECTRONICALLY SIGNED> By: Benjamin Dobson, PhD 05/16/16 1426 1754 0549 Benjamin Dobson, PhD /
--- NOTE | ~2016-05-03 | PLAN ---
[facility] [address] REHAB UNIT PLAN OF CARE Name: ROWAN CHACON Room #: 503-P ADM IN M.R.#: [id number] Admission: 05/03/16 Attend Phys: Shay Clemens MD Discharge: Date of : 62 Report #: [id number] THIS REPORT FOR: //name// CC: Shay Fink DATE OF SERVICE: 05/05/20162016 instrumental was seen back today in followup. He was in no distress. He was cooperative. Some mild paranoid statements thinking we are keeping him against his will and not fully understanding why he is here. I discussed with him the fact that he has had the strokes and would benefit from the rehabilitation in the goals of the program. He appeared responsive to our discussion. His temperature is 98, pulse 63, respirations 18, blood pressure is 99/58. He does have the residual right-sided weakness from his old stroke. He has been working in therapies with transfers at a min assist level. Gait is min assist varying distance from 10 to 500 feet without a device. He has gone up and down 4 steps with min assist. In occupational therapy, lower body dressing is dependent, upper body dressing is also dependent. In speech therapy, he has moderate to severe comprehensive deficits with moderate expressive deficits. ASSESSMENT: 1. Autoimmune encephalitis. 2. Multiple cerebrovascular accidents. 3. Bipolar affective disorder with paranoia. 4. Type 2 diabetes mellitus with peripheral neuropathy. 5. Recent history of rapid taper off of gabapentin. 6. History of gout. 7. History of osteoarthritis of multiple sites. 8. History of recurrent prostatitis. 9. History of sigmoid resection for diverticulitis that was perforated in the past. 10. History of left carotid endarterectomy. 11. History of Peyronie disease, with penile implants times 2. 12. History of peripheral arterial disease with left renal stent placement. PLAN: The overall plan of care is based on the preadmission screen, post-admission physician evaluation and information garnered from therapy assessments. 1. Estimated length of stay is probably at least 2-3 weeks, pending his progress. 2. Medical prognosis is reasonably good. 3. Anticipated interventions includes the interdisciplinary acute inpatient rehabilitation program. 4. Anticipated functional outcomes would be for the patient to improve with mobility as well as ADLs and cognition, so that he could hopefully reach a point [address] [address] REHAB UNIT PLAN OF CARE Name: ROWAN CHACON Room #: 503-P [facility] IN ..#: [id number] Admission: 05/03/16 Attend Phys: Shay Clemens MD Discharge: Date of : 62 Report #: [id number] where he could return back to the home setting. 5. Discharge destination will be back home with his . We will need to further assess regarding additional assistance for the . 6. Expected therapy by discipline includes PT, OT and speech 1 hour per day each five days a week throughout the duration of the acute inpatient rehabilitation stay. <ELECTRONICALLY SIGNED> By: Shay Clemens MD 05/08/16 1455 0815 1009 Shay Clemens MD /nt
[~2016-05-03 16:15] MED LIST changes: +A THRU Z ADVAN1 EAC1 PO; +ACETAMINOPHEN325 M1 PO; +ADULT LOW DOSE81 MG PO; +ALPRAZOLAM 0.50.5 M1 PO; +BENAZEPRIL HCL20 MG PO; +BISAC-EVAC10 MG RECTAL; +CALTRATE-600 W1 EACH PO; +COLCHICINE0.6 MG PO; +DEPAKOTE 250MG250 M1 PO; +DEPAKOTE500 MG PO; +DEXTROSE 5025 GM/SYR IV PUSH; +ENOXAPARIN40 MG/0.1 SUBQ; +FISH OIL 1,0001 EAC5 PO; +GLUCAGEN1 MG IM; +GLUCOSE4 GM PO; +GLUTOSE GEL 1515 G1 PO; +HUMALOG100 UNIT/1 SUBQ; +IRON325 PO; +LAMICTAL 25 MG25 M1 PO; +LEVOTHYROXINE0.05 MG PO; +ONDANSETRON HCL4 M1 IV PUSH; +PEPCID20 MG PO; +PERCOCET 10-321 EACH PO; +PREDNISONE 20 M20 M1 PO; +SENNA PO; +SEROQUEL 25 MG25 M1 PO; +SEROQUEL 50 MG50 M1 PO; +SEROQUEL XR 20200 MG PO; +SEROQUEL XR150 M1 PO; +TRANSDERM-SCO1 PATC1 TRANSDERM; +VITAMIN B-1100 M2 PO; +VITAMIN D1000 UNI1 PO
[2016-05-03 21:07] VITALS: BP 122/67
[2016-05-04 02:29] VITALS: BP 115/74
[2016-05-04 04:14] LABS: CALCIUM 8.7 mg/dL (8.5-10.1); CREATININE 1.1 mg/dL (0.6-1.3); POTASSIUM 3.8 mmol/L (3.5-5.1)
[2016-05-04 04:27] LABS: HEMATOCRIT 32.6 % (42.0-52.0); MCHC 33.7 g/dL (28.0-37.0); RBC 3.66 mil/uL (4.50-6.00); RDW 16.6 % (10.5-14.5); WBC 18.5 thou/uL (4.0-11.0)
[2016-05-04 08:22] VITALS: BP 120/77
[2016-05-04 17:51] VITALS: BP 135/69
[2016-05-04 20:30] VITALS: BP 131/64
[2016-05-05 05:48] VITALS: BP 99/58
[2016-05-05 16:00] VITALS: BP 116/56
[2016-05-05 21:00] VITALS: BP 120/75
[2016-05-06 04:28] VITALS: BP 83/51
[2016-05-06 06:21] VITALS: BP 101/66
[2016-05-06 16:00] VITALS: BP 134/70
[2016-05-07 04:28] LABS: CALCIUM 8.4 mg/dL (8.5-10.1); CREATININE 1.3 mg/dL (0.6-1.3); POTASSIUM 4.3 mmol/L (3.5-5.1)
[2016-05-07 04:46] LABS: HEMATOCRIT 32.5 % (42.0-52.0); HEMOGLOBIN 10.8 gm/dL (14.0-18.0); MCH 30.2 pg (26.0-34.0); MCHC 33.1 g/dL (28.0-37.0); RBC 3.57 mil/uL (4.50-6.00); RDW 16.6 % (10.5-14.5)
[2016-05-07 05:37] VITALS: BP 143/74
[2016-05-07 15:45] VITALS: BP 133/80
[2016-05-08 04:00] VITALS: BP 93/69
[2016-05-08 08:36] VITALS: BP 105/65
[2016-05-08 09:20] VITALS: BP 105/65
[2016-05-08 16:05] VITALS: BP 110/70
[2016-05-09 09:34] VITALS: BP 120/74
[2016-05-09 15:43] VITALS: BP 91/59
[2016-05-09 17:27] VITALS: BP 99/59
[2016-05-09 21:00] VITALS: BP 117/67
[2016-05-10 05:38] VITALS: BP 106/77
[2016-05-10 07:07] VITALS: BP 94/54
[2016-05-10 08:08] VITALS: BP 117/58
[2016-05-10 16:00] VITALS: BP 149/91
[2016-05-10 19:12] VITALS: BP 142/76
[2016-05-11 06:00] VITALS: BP 105/63
[2016-05-11 09:34] VITALS: BP 120/62
[2016-05-11 17:16] VITALS: BP 176/90
[2016-05-12 07:14] VITALS: BP 100/61
[2016-05-12 15:49] VITALS: BP 99/68
[2016-05-12 20:36] VITALS: BP 125/67
[2016-05-13 03:19] VITALS: BP 135/91
[2016-05-13 09:13] VITALS: BP 119/83
[2016-05-13 16:08] VITALS: BP 149/82
[2016-05-14 05:02] VITALS: BP 145/86
[2016-05-14 15:10] VITALS: BP 130/76
[2016-05-14 21:45] VITALS: BP 129/68
[2016-05-15 05:40] VITALS: BP 136/91
[2016-05-15 15:45] VITALS: BP 146/84
[2016-05-15 20:37] VITALS: BP 139/72
[2016-05-16 06:00] VITALS: BP 127/68
[2016-05-16 08:11] VITALS: BP 87/56
[2016-05-16 09:45] VITALS: BP 104/57
[2016-05-16 15:30] VITALS: BP 120/75
[2016-05-16 21:05] VITALS: BP 120/69
[2016-05-17 07:30] VITALS: BP 113/62
[2016-05-17 20:20] VITALS: BP 114/71; BP 137/77
[2016-05-18 03:56] VITALS: BP 99/66
[2016-05-18 04:13] LABS: HEMATOCRIT 33.9 % (42.0-52.0); HEMOGLOBIN 11.3 gm/dL (14.0-18.0); MCH 30.9 pg (26.0-34.0); MCHC 33.4 g/dL (28.0-37.0); MCV 92.5 fL (80.0-100.0); RBC 3.66 mil/uL (4.50-6.00); RDW 19.4 % (10.5-14.5); WBC 15.6 thou/uL (4.0-11.0)
[2016-05-18 04:33] LABS: CALCIUM 8.3 mg/dL (8.5-10.1); CREATININE 1.2 mg/dL (0.7-1.3); POTASSIUM 4.4 mmol/L (3.5-5.1); URIC ACID* 3.3 mg/dL (2.6-7.2)
[2016-05-18 16:57] VITALS: BP 140/79
[2016-05-18 20:13] VITALS: BP 120/64
[2016-05-19 07:45] VITALS: BP 122/59
[2016-05-19 16:58] VITALS: BP 147/88
[2016-05-20 03:34] VITALS: BP 138/88
[2016-05-20 16:15] VITALS: BP 149/73
[2016-05-21 05:00] VITALS: BP 114/77
[2016-05-21 16:18] VITALS: BP 115/74
[2016-05-22 04:54] VITALS: BP 144/89
[2016-05-22 08:00] VITALS: BP 103/68
[2016-05-22 15:00] VITALS: BP 147/76
[2016-05-22 20:26] VITALS: BP 148/93
[2016-05-23 05:40] VITALS: BP 117/77
[2016-05-23 08:00] VITALS: BP 125/83
[2016-05-23] MEDS ORDERED: SEROQUEL 50 MG50 M1 PO (09:55)
[2016-05-23] MEDS ORDERED: MELATONIN5 M1 PO (09:55)
[2016-05-23] MEDS ORDERED: SEROQUEL XR 20200 MG PO (09:55)
[2016-05-23] MEDS ORDERED: CALTRATE-600 W1 EACH PO (09:55)
[2016-05-23] MEDS ORDERED: ENOXAPARIN40 MG/0.1 SUBQ (09:58)
[2016-05-23] MEDS ORDERED: ALPRAZOLAM 0.0.25 M1 PO (09:59)
[2016-05-23] MEDS ORDERED: PEPCID20 MG PO (10:01)
[2016-05-23] MEDS ORDERED: HUMALOG100 UNIT/1 SUBQ (10:04)
[2016-05-23] MEDS ORDERED: PREDNISONE 20 M20 M1 PO (10:04)
[2016-05-23] MEDS ORDERED: LANTUS100 UNIT/M SUBQ (10:07)
[2016-05-23 15:25] VITALS: BP 144/71
[2016-05-24 05:25] VITALS: BP 135/83
[2016-05-24 15:28] VITALS: BP 135/83
== END 2016-05-24 16:15 | disposition home or self-care (01) | DRG 97 ==
PROVIDERS: Internal Medicine; Physical Medicine & Rehabilitation
DX: G04.81 Other encephalitis and encephalomyelitis (principal); E43 Unspecified severe protein-calorie malnutrition; N39.0 Urinary tract infection, site not specified; F31.9 Bipolar disorder, unspecified; F22 Delusional disorders; E11.42 Type 2 diabetes mellitus with diabetic polyneuropathy; M10.9 Gout, unspecified; E11.51 Type 2 diabetes mellitus with diabetic peripheral angiopathy without gangrene; M19.90 Unspecified osteoarthritis, unspecified site; F01.50 Vascular dementia, unspecified severity, without behavioral disturbance, psychotic disturbance, mood disturbance, and anxiety; F10.21 Alcohol dependence, in remission; G47.9 Sleep disorder, unspecified; I95.1 Orthostatic hypotension; E03.9 Hypothyroidism, unspecified; K21.9 Gastro-esophageal reflux disease without esophagitis; N41.9 Inflammatory disease of prostate, unspecified; D64.9 Anemia, unspecified; Z90.49 Acquired absence of other specified parts of digestive tract; Z68.24 Body mass index [BMI] 24.0-24.9, adult; Z88.0 Allergy status to penicillin; Z85.238 Personal history of other malignant neoplasm of thymus; Z88.2 Allergy status to sulfonamides; Z88.8 Allergy status to other drugs, medicaments and biological substances
CPT/HCPCS: 10112

== ENCOUNTER 2016-09-06 14:31 | Inpatient (IN) | payer BC ==
[~2016-09-06] VITALS: Ht 172.7 cm; Wt 85.4 kg
--- NOTE | ~2016-09-06 | HC ---
[facility] [place] [address] CONSULTATION Name: ROWAN CHACON Room #: 423-1 ADM IN M.R.#: [id number] Admission: 09/06/16 Attend Phys: Charles Fink MD Discharge: Date of : 62 Report #: [id number] THIS REPORT FOR: //name// CC: Charles Fink REASON FOR CONSULTATION: I was asked to evaluate concerning right lower extremity cellulitis. HISTORY OF PRESENT ILLNESS: The patient was a 55-year-old with autoimmune cerebritis. He is on corticosteroids and CellCept. Twenty four hours prior to his admission, he noticed increased pain and swelling and redness in his right leg. No documented fever or chills. The patient is a poor historian. He is very lethargic. He does awaken, but did not give any history. Admitted and placed on IV antibiotic therapy including vancomycin. He has a severe allergy to PENICILLIN with hives. He was kept on his prednisone and his CellCept. He has remained afebrile and hemodynamically stable. Oxygen saturation was normal on room air, although he remains congested. No nausea, vomiting or diarrhea. No dysuria. He is incontinent of urine. ALLERGIES: Anaphylaxis to PENICILLIN. GI upset with SULFA. Throat swelling with NONSTEROIDAL ANTI-INFLAMMATORIES. MEDICATIONS: As noted on his MAR including vancomycin. PAST MEDICAL HISTORY, FAMILY HISTORY AND SOCIAL HISTORY: Unchanged from his history and physical, which was reviewed in detail, noting xerosis, vascular dementia, autoimmune encephalitis, diabetes. He is also a past smoker. REVIEW OF SYSTEMS: As above. PHYSICAL EXAMINATION: VITAL SIGNS: Afebrile, hemodynamically stable. He was cushingoid. SKIN: He had cellulitis involving the right lower extremity below the knee. He had several eschar areas and excoriations. Area of swelling upper pretibia consistant with hematoma. Moderate tenderness in this region. No adenopathy in the groin. 2+ edema in the leg. CHEST: Coarse upper airway rhonchi. LUNGS: Otherwise clear posteriorly. HEART: Regular. ABDOMEN: Soft, protuberant, ecchymosis across the lower abdomen pannus. HEENT: Unremarkable. NEUROLOGIC: Nonfocal. LABORATORY STUDIES: Blood cultures are negative to date. MRSA screen was negative. Sodium 143, potassium 4.3, bicarbonate of 34, creatinine 1.2. [address] [address] CONSULTATION Name: ROWAN CHACON FARHAT Room #: [facility] ADM IN M.R.#: [id number] Admission: 09/06/16 Attend Phys: Charles Fink MD Discharge: Date of : 62 Report #: [id number] function test normal. Hemoglobin 11.5, WBCs 7.2, platelet count 77,000, 77% neutrophils, 12% lymphs. Ultrasound negative for DVT. Chest x-ray, scarring in the left base. IMPRESSION AND PLAN: A 55-year-old with autoimmune cerebritis, on prednisone and CellCept immunosuppression, presents with right lower extremity cellulitis. He has a new finding with thrombocytopenia etiology of which is yet to be determined. Renal function appears stable as does his mental status from what has been recorded before. Recommend continuing vancomycin due to his PENICILLIN allergy. I have not seen if he has tolerated cephalosporins before. We will await blood cultures. Serial CBC. <ELECTRONICALLY SIGNED> By: Temo Lobo MD 09/08/16 1127 1134 1220 Temo Lobo MD /nt
--- NOTE | ~2016-09-06 | EKG ---
[address] [place] [address] ELECTROCARDIOGRAM REPORT Name: ROWAN CHACON Room #: 423-1 ADM IN M.R.#: [id number] Admission: 09/06/16 Attend Phys: Charles Fink MD Discharge: Date of : 62 Report #: [id number] THIS REPORT FOR: //name// [facility] Test Date: 2016-09-06 Test Time: 16:01:05 Pat Name: ROWAN CHACON Department: Room: [facility] Gender: M Pot Room Tapper: JOSE : 1960 Requested By: Charles Fink Order Number: [id number] MD: López Damon Measurements Intervals [place] Rate: 111 P: 49 TN: 184 QRS: 54 QRSD: 103 T: 20 QT: 336 QTc: 457 Interpretive Statements Sinus tachycardia Otherwise no significant abnormality Compared to ECG 12/16/2015 12:51:15 No significant change was found Electronically Signed On 09-06-2016 18:30:32 CDT by López Damon [email or web address] <ELECTRONICALLY SIGNED> By: López Damon MD, [facility] 09/06/16 1830 1601 00 López Damon MD, FACC /EPI
[~2016-09-06 14:31] MED LIST changes: +ALPRAZOLAM 0.0.25 M1 PO; +MELATONIN5 M1 PO
[2016-09-06 15:30] VITALS: BP 158/85
[2016-09-06 16:24] LABS: ABSOLUTE NEUTROPHILS 5.6 thou/uL (1.4-8.2); BASOPHILS 0.1 % (0.0-2.0); HEMATOCRIT 32.9 % (42.0-52.0); HEMOGLOBIN 11.5 gm/dL (14.0-18.0); LYMPHOCYTES 12.6 % (24.0-44.0); MCH 36.1 pg (26.0-34.0); MCHC 35.1 g/dL (28.0-37.0); MCV 102.9 fL (80.0-100.0); MONOCYTES 9.5 % (1.0-8.0); PLATELET COUNT 77 thou/uL (150-400); POLYS 77.8 % (36.0-66.0); RDW 14.6 % (10.5-14.5); WBC 7.2 thou/uL (4.0-11.0)
[2016-09-06 16:26] LABS: MANUAL DIFF NO
[2016-09-06 16:30] LABS: CREATININE 1.2 mg/dL (0.7-1.3); POTASSIUM 4.3 mmol/L (3.5-5.1)
[2016-09-06 16:36] LABS: PROTIME 9.9 Seconds (9.3-11.4)
[2016-09-06 16:44] LABS: ALBUMIN 2.6 g/dL (3.4-5.0); DIRECT BILIRUBIN 0.1 mg/dL (<0.1-0.3); MAGNESIUM 1.6 mg/dL (1.8-2.4); TOTAL BILIRUBIN 0.3 mg/dL (<0.1-1.0); TOTAL PROTEIN 5.8 g/dL (6.4-8.2)
[2016-09-06 19:47] VITALS: BP 198/112
[2016-09-06 23:18] VITALS: BP 150/96
[2016-09-07 03:05] VITALS: BP 149/94
[2016-09-07 08:04] VITALS: BP 123/73
[2016-09-07 13:50] VITALS: BP 166/95
[2016-09-07 16:38] VITALS: BP 153/75
[2016-09-07 19:03] VITALS: BP 165/103
[2016-09-08 03:42] VITALS: BP 148/94
[2016-09-08 07:29] VITALS: BP 104/66
[2016-09-08 08:25] LABS: ABSOLUTE NEUTROPHILS 5.9 thou/uL (1.4-8.2); BASOPHILS 0.4 % (0.0-2.0); EOSINOPHILS 0.1 % (0.0-3.0); HEMATOCRIT 35.2 % (42.0-52.0); LYMPHOCYTES 30.9 % (24.0-44.0); MCH 35.2 pg (26.0-34.0); MCHC 34.2 g/dL (28.0-37.0); MONOCYTES 7.8 % (1.0-8.0); PLATELET COUNT 105 thou/uL (150-400); POLYS 60.8 % (36.0-66.0); RBC 3.42 mil/uL (4.50-6.00); RDW 14.3 % (10.5-14.5); WBC 9.7 thou/uL (4.0-11.0)
[2016-09-08 08:41] LABS: MANUAL DIFF NO
[2016-09-08 17:02] VITALS: BP 144/104
[2016-09-08 19:48] VITALS: BP 146/101
[2016-09-09 04:07] VITALS: BP 162/99
[2016-09-09 05:45] LABS: CALCIUM 8.6 mg/dL (8.5-10.1); CREATININE 1.1 mg/dL (0.7-1.3); MAGNESIUM 1.5 mg/dL (1.8-2.4); PHOSPHORUS 3.6 mg/dL (2.5-4.9); POTASSIUM 3.9 mmol/L (3.5-5.1)
[2016-09-09 06:17] LABS: TSH 4.184 uIU/mL (0.358-3.740)
[2016-09-09 06:58] LABS: FOLIC ACID 39.5 ng/mL (8.6-58.9)
[2016-09-09 08:07] VITALS: BP 135/84
[2016-09-09 17:36] VITALS: BP 124/81
[2016-09-09 17:37] VITALS: BP 105/68
[2016-09-09 17:38] VITALS: BP 111/71
[2016-09-09 19:24] VITALS: BP 157/92
[2016-09-09 21:23] LABS: CALCIUM 8.8 mg/dL (8.5-10.1); CREATININE 1.2 mg/dL (0.7-1.3); MAGNESIUM 1.9 mg/dL (1.8-2.4); POTASSIUM 4.1 mmol/L (3.5-5.1)
[2016-09-10 04:00] VITALS: BP 105/63
[2016-09-10 08:11] VITALS: BP 138/89
[2016-09-10] MEDS ORDERED: MINOCIN100 MG PO (12:26)
[2016-09-10] MEDS ORDERED: DUONEB 2.5-0.5 M3 ML INH (12:26)
[2016-09-10] MEDS ORDERED: OXYCODONE HCL 55 MG PO (12:28)
[2016-09-10] MEDS ORDERED: SEROQUEL XR 30300 M1 PO (12:29)
[2016-09-10] MEDS ORDERED: K-DUR 20 MEQ T20 MEQ PO (12:30)
[2016-09-10] MEDS ORDERED: LASIX 40 MG TAB40 M1 PO (12:31)
[2016-09-10] MEDS ORDERED: MAGNESIUM OXID400 MG PO (12:31)
[2016-09-10] MEDS ORDERED: ROBITUSSIN DM118 ML PO (12:31)
[2016-09-10] MEDS ORDERED: PANTOPRAZOLE SO40 M1 PO (12:32)
[2016-09-10] MEDS ORDERED: PREDNISONE 20 M20 M1 PO ×2 (12:33→12:34)
[2016-09-10] MEDS ORDERED: HUMALOG100 UNIT/1 SUBQ (12:34)
[2016-09-10] MEDS ORDERED: LEVOTHYROXIN0.075 MG PO (12:35)
[2016-09-10] MEDS ORDERED: A THRU Z ADVAN1 EAC1 PO (12:36)
[2016-09-10] MEDS ORDERED: CELLCEPT 250 M250 MG PO (12:36)
[2016-09-10] MEDS ORDERED: COLCHICINE0.6 MG PO (12:37)
[2016-09-10 13:49] VITALS: BP 138/89
[2016-09-10 14:57] VITALS: BP 138/89
== END 2016-09-10 14:37 | disposition home or self-care (01) | DRG 602 ==
LOC: 4E 14:31
PROVIDERS: Internal Medicine; Specialist
PROC: B548ZZA Ultrasonography of Superior Vena Cava, Guidance (ICD-10-PCS; principal; 2016-09-06)
PROC: 02HV33Z Insertion of Infusion Device into Superior Vena Cava, Percutaneous Approach (ICD-10-PCS; principal; 2016-09-06)
DX: L03.115 Cellulitis of right lower limb (principal); G04.90 Encephalitis and encephalomyelitis, unspecified; G81.91 Hemiplegia, unspecified affecting right dominant side; E11.42 Type 2 diabetes mellitus with diabetic polyneuropathy; I10 Essential (primary) hypertension; I95.1 Orthostatic hypotension; M10.9 Gout, unspecified; M19.90 Unspecified osteoarthritis, unspecified site; K21.9 Gastro-esophageal reflux disease without esophagitis; J44.9 Chronic obstructive pulmonary disease, unspecified; K74.60 Unspecified cirrhosis of liver; L89.151 Pressure ulcer of sacral region, stage 1; E78.5 Hyperlipidemia, unspecified; F31.9 Bipolar disorder, unspecified; N48.6 Induration penis plastica; F41.9 Anxiety disorder, unspecified; Z79.4 Long term (current) use of insulin; Z88.6 Allergy status to analgesic agent; Z88.8 Allergy status to other drugs, medicaments and biological substances; Z88.0 Allergy status to penicillin; Z90.49 Acquired absence of other specified parts of digestive tract; Z88.2 Allergy status to sulfonamides; Z86.73 Personal history of transient ischemic attack (TIA), and cerebral infarction without residual deficits
CPT/HCPCS: 10783; 27000

== ENCOUNTER 2017-05-01 19:50 | Inpatient (IN) | payer BC ==
[~2017-05-01] VITALS: Ht 175.3 cm; Wt 73.7 kg
--- NOTE | ~2017-05-01 | D ---
[facility] [place] [address] DISCHARGE SUMMARY Name: ROWAN CHACON Room #: 357-P ADM IN M.R.#: [id number] Admission: 05/01/17 Attend Phys: Charles Fink MD Discharge: Date of : 62 Report #: [id number] THIS REPORT FOR: //name// CC: Elena Yao MD [facility] Michael Arias MD DATE OF SERVICE: 05/10/2017 HOSPITAL COURSE: The patient is a 56-year-old white male who was admitted directly to the hospital after several months' cox with persistent nausea, vomiting and malaise. He had gotten to a point where he could no longer get out of bed and even then only with great assistance and was admitted to the hospital and found to have acute renal failure with a BUN of greater than 120 and a creatinine of greater than 13. His care was transferred to the Intensive Care Unit, where further monitoring of his rapidly developing and clinical debilitation could be provided. Ultimately, because he was not making significant amounts of urine and he had need for very careful management of intake and output, Romero catheter was placed. Nephrology consult was obtained and eventually the patient was dialyzed 2, perhaps 3 times, in toto. Subsequently, his renal function returned without need for continuing hemodialysis and that dialysis catheter was removed. His creatinine was less than 4 at the time of discharge. The patient did also require aggressive fluid resuscitation intravenously at the time of admission and for several days thereafter. Also, during the workup, the patient was noted to have elevated cardiac enzymes. In the face of acute renal failure, the cardiac enzymes measurements are suspect. As part of the continuing workup, the patient had an echocardiogram and a Cardiology consult. The echocardiogram showed severe cardiomyopathy with an ejection fraction of the left ventricle in the range of 25%-30%. (See the rest of report within the body of the chart). The patient was taken off metoprolol and put on carvedilol as beta-nancy. Because of the renal insufficiency, his lisinopril was stopped at admission. At the time of discharge, the patient is still in need of a continuing cardiovascular evaluation to uncover the etiology of his cardiomyopathy. It would appear to be most likely due to cardiovascular ischemia and at some point in coming weeks, he would benefit from a cardiac stress test. However, he is not having chest pain and has not been symptomatic of congestive heart failure, otherwise during his recovery. Next, the patient had a flareup of acute gout in the right great toe. Because [address] [address] DISCHARGE SUMMARY Name: ROWAN CHACON Room #: 357-P [facility] IN M.R.#: [id number] Admission: 05/01/17 Attend Phys: Charles Fink MD Discharge: Date of : 62 Report #: [id number] the patient was taken off of allopurinol and colchicine in the setting of acute renal failure, he was treated with intravenous steroids; in this case, the steroids would serve to treat both his acute gout as well as provide additional coverage for his autoimmune cerebritis (see below). His gout responded appropriately to therapy. See further discussions regarding rheumatology and rheumatology followup below. Autoimmune cerebritis history played a alanis component in the patient's presentation at this time. The patient has been taking CellCept 1500 mg twice daily for the past year or so for treatment of this condition and has done remarkably well. However, at the time of admission, serious consideration had to be given regarding its continued use in the setting of sepsis; the disease modifying antirheumatic drug is also a significant immunosuppressant. 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 (patient sees Dr. Charles Voss outside the hospital). The patient did get a GI consult and underwent upper and lower endoscopy. It is noteworthy that the CT scan of the abdomen and pelvis that was performed while he was hospitalized showed significant swelling in the area of the colon, but was otherwise benign. The endoscopic evaluations are contained within the body of the chart, which showed some diffuse gastritis and swelling and nonspecific changes in the colon. Biopsies were generally benign. There is no evidence of malignancy. After further consideration, the gastrointestinal specialist recommended and started the patient on mesalamine orally for treatment of his apparent autoimmune colitic condition. At time of discharge, the patient is continuing to have some very loose stools, but he feels that his control is improving and no bleeding has been seen and his appetite is greatly improved and his persistent nausea and vomiting have entirely resolved. The patient was also seen by pulmonary consultants due to his underlying history of COPD. The patient also has a known history of cirrhosis due to a remote history of alcohol use and probably complicated by nonalcoholic steatohepatitis in the setting of type 2 diabetes mellitus. Upon admission, a prothrombin time with international normalized ratio was markedly abnormal; the INR was approximately 2.5. Fibrinogen, however, was normal. This significant finding argued against a consumptive coagulopathy, such as DIC. At the time of this finding, the patient was being evaluated for endoscopy and vitamin K was given, but given the relatively slow onset of replacing that vitamin, the patient also had a transfusion of fresh frozen plasma, so as to allow for biopsies during the procedure. Biopsy results are contained in another section of the chart. [facility] [address] [place] [address] DISCHARGE SUMMARY Name: ROWAN CHACON Room #: 357-P ADM IN M.R.#: [id number] Admission: 05/01/17 Attend Phys: Charles Fink MD Discharge: Date of : 62 Report #: [id number] Eventually, the patient's hemoglobin drifted down to a level of about 6.5 g/dL. With approval from Nephrology, because of the acute renal failure issues, he was transfused with 1 unit of packed red blood cells with a significant improvement in his hemoglobin and his general malaise at that time. Having been in bed a great deal for the last several months as well as during this hospital stay, the patient was managed aggressively towards rehab needs with Physical and Occupational Therapy and a rehab consultation was held with Dr. Clemens. It was felt that the patient would likely benefit from an inpatient rehabilitation stay as well as allow for careful and close observation of his continuing medication needs. These include at the time of discharge, intravenous antibiotics, intravenous steroids. The patient and spouse were agreeable to the transfer and upon approval from his insurance, he is being transferred to the [address] [place] [address] rehab unit at [facility] for continuing care. MEDICATIONS: List is as follows: 1. DuoNeb 3 mL inhaled t.i.d. p.r.n. wheezing. 2. Cyclobenzaprine 10 mg p.o. at bedtime. 3. Carvedilol 6.25 mg p.o. b.i.d. 4. Acetaminophen 500 p.o. t.i.d. p.r.n. fever or pain. 5. Seroquel 100 mg p.o. at bedtime and 50 mg p.o. q.4 hours p.r.n. anxiety or insomnia. 6. He has p.r.n. glucose sources for part of hypoglycemia protocol. 7. He has topical lidocaine as needed for areas of pain q.4 hours p.r.n. 8. He has Senokot-S 1 p.o. q.a.m. p.r.n. constipation. 9. He has ondansetron 4 mg orally disintegrating tablets q.6 hours p.r.n. nausea. 10. Pantoprazole 40 mg p.o. q.a.m. 11. Mesalamine 800 mg p.o. t.i.d. 12. Methylprednisolone 40 mg IV q.12 hours. 13. NovoLog on a sliding scale of low intensity. 14. Glucagon 1 mg IM p.r.n. hypoglycemia. 15. Aspirin 81 mg by mouth daily. 16. Hydrocodone/acetaminophen 5/325 one p.o. q.4 hours p.r.n. pain. 17. Lamictal 100 mg p.o. at bedtime and 50 mg p.o. q.a.m. 18. Levothyroxine 0.075 mg p.o. daily. 19. Multivitamin p.o. daily. 20. Melatonin 5 mg p.o. at bedtime p.r.n. insomnia. DISCHARGE DIAGNOSES: 1. Sepsis. 2. Acute renal failure. 3. Cardiomyopathy of uncertain etiology. 4. Autoimmune encephalitis. 5. Acute gout. [facility] [address] [place] [address] DISCHARGE SUMMARY Name: ROWAN CHACON Room #: 357-P [facility] IN [place].#: [id number] Admission: 05/01/17 Attend Phys: Charles Fink MD Discharge: Date of : 62 Report #: [id number] 6. Anemia and thrombocytopenia. 7. Severe malnutrition. 8. Gait disturbance. 9. Type 2 diabetes mellitus. 10. Hypertension. 11. Hyperlipidemia. 12. Diverticulosis. 13. Bipolar affective disorder. 14. Peyronie's disease. 15. 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 16. Osteoarthritis, multiple sites. 17. Acute gout. 18. Tremor. 19. 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 20. History of testicular cancer. 21. Known ALLERGIES to PENICILLIN, SULFA and INTOLERANCE OF NONSTEROIDAL ANTI-INFLAMMATORY DRUGS due to NEPHROPATHY. 22. Peripheral neuropathy. 23. Autoimmune colitis. 24. Diffuse gastritis. 25. Massive weight loss (approximately 40 pounds). 26. Hypothyroidism. 27. Coagulopathy, multifactorial including cirrhosis, and malnutrition. The patient is being transferred today to the inpatient rehab unit at [facility]. By: [id number] [id number] Charles Fink MD /nt
--- NOTE | ~2017-05-01 | HC ---
[facility] [place] [address] CONSULTATION Name: ROWAN CHACON Room #: 241-P [facility] IN M.R.#: [id number] Admission: 05/01/17 Attend Phys: Charles Fink MD Discharge: Date of : 62 Report #: [id number] THIS REPORT FOR: //name// CC: Charles Fink REFERRAL PHYSICIAN: Charles Fink MD REASON FOR REFERRAL: Severe sepsis, possible need for central line. HISTORY OF PRESENT ILLNESS: The patient is a 56-year-old white male who was directly admitted with progressive nausea, vomiting and weight loss. The patient is felt to have severe sepsis. A pulmonary critical care consultation was requested. The patient has a complex medical history. He has been previously diagnosed with autoimmune encephalitis in the past. He also has a history of hypertension, diabetes mellitus type 2, chronic gout, chronic pain along with bipolar affective disorder. The patient has been experiencing weakness and falls over the past several months. The patient has also noted 30-40 pounds of weight loss. With worsening symptoms, he was admitted for further evaluation. Currently, he appears weak, but denies any dyspnea. Appears moderately distressed. Of note, his creatinine level has worsened from baseline around 1.3 to 13.3 presently. PAST MEDICAL HISTORY: As mentioned above. Autoimmune encephalitis, hypertension, history of testicular cancer, history of CVA, tremors, cirrhosis due to BAXTER, hyperlipidemia, bipolar disorder, peripheral artery disease status post left carotid endarterectomy, hypertension, diabetes mellitus type 2, Peyronie's disease, history of diverticulitis status post laparoscopic sigmoidectomy, rheumatoid arthritis, severe osteoarthritis involving lumbosacral and sacroiliac areas including knees and hips, passive tobacco use. PAST SURGICAL HISTORY: As mentioned above. ALLERGIES: NONSTEROIDAL ANTI-INFLAMMATORY AGENTS resulting in UPPER AIRWAY EDEMA, PENICILLIN causes ANAPHYLAXIS, SULFA causes SEVERE GI UPSET. HOME MEDICATIONS: List reviewed in the MAR. FAMILY HISTORY: The patient is adopted. SOCIAL HISTORY: The patient has smoked about 3 packs a day for about 20 years. [facility] [address] [place] [address] CONSULTATION Name: ROWAN CHACON Room #: [address] [place] [address] IN .R.#: [id number] Admission: 05/01/17 Attend Phys: Charles Fink MD Discharge: Date of : 62 Report #: [id number] He is . 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 He has quit smoking recently. He has no children. REVIEW OF SYSTEMS: As mentioned above, otherwise 10-point system is negative. PHYSICAL EXAMINATION: GENERAL: He is awake, alert, in mild distress. VITAL SIGNS: Temperature is 98 degrees Fahrenheit, pulse is 130, respiratory rate is 13, blood pressure 100/67 mmHg, saturation 100%. HEENT: Normocephalic, atraumatic. NECK: Supple, without lymphadenopathy or thyromegaly. CHEST: Breath sounds are fair, effort is poor. Otherwise clear without any rales or wheezes. CARDIOVASCULAR: Normal S1, S2. Thee are no murmurs or gallop. There is no JVD. There is no carotid bruit. Pulses are 2+/4+ bilaterally. ABDOMEN: Soft, nontender, no organomegaly or masses felt. GENITOURINARY: Deferred. RECTAL: Deferred. EXTREMITIES: There is no edema, cyanosis or clubbing. LABORATORY DATA: Chest x-ray shows clear lung flores. Lactic acid is 1.3. Procalcitonin level is 0.57. EKG shows no acute ischemic changes. PSA 1.2. Sodium 140, potassium 4.2, chloride 98, CO2 17, BUN is 120, creatinine is 13.3. Liver function enzymes mildly abnormal. WBC 11,600; hemoglobin 10.5; platelets are mildly reduced. No evidence of bandemia. Troponin is 0.9. Arterial blood gas revealed pH 7.33, pCO2 of 31, pO2 92 on room air. IMPRESSION: 1. Progressive weakness, nausea, vomiting, weight loss in this 56-year-old white male with history of autoimmune encephalitis. He now has underlying acute kidney injury. He is felt to have gastroenteritis. Pneumonia is felt to be less likely given clear chest x-rays. 2. History of autoimmune encephalitis may be contributing to some of his symptoms. 3. Acute kidney injury as mentioned above. 4. Elevated troponin level. Cardiology has been consulted. 5. Progressive weight loss, malnutrition, may be multifactorial. RECOMMENDATIONS: From pulmonary critical standpoint, the patient appears to be fairly stable. Renal is addressing his fluid and electrolyte issues. He may need vasopressors for mild hypotension. Given his renal failure, would try to avoid aggressive fluid resuscitations. In terms of pulmonary status, appears to be stable for now. If he does have severe sepsis, then respiratory status may be affected. We will follow up closely. [facility] [address] [place] [address] CONSULTATION Name: ROWAN CHACON Room #: 241-P [facility] IN M.R.#: [id number] Admission: 05/01/17 Attend Phys: Charles Fink MD Discharge: Date of : 62 Report #: [id number] IV access has been addressed by Interventional Radiology, where a temporary dialysis catheter along with central line will be placed soon. DVT and GI prophylaxis will be addressed. Antibiotics will be addressed by Infectious Disease. Thank you for this consultation. We will follow closely with you. <ELECTRONICALLY SIGNED> By: Prakash Moreno MD 05/02/17 1624 1310 1501 Prakash Moreno MD /nt
--- NOTE | ~2017-05-01 | H ---
[facility] [place] [address] HISTORY AND PHYSICAL Name: ROWAN CHACON Room #: 241-P [facility] IN M.R.#: [id number] Admission: 05/01/17 Attend Phys: Charles Fink MD Discharge: Date of : 62 Report #: [id number] THIS REPORT FOR: //name// CC: Vahe Yao MD [facility] Michael Fink DATE OF SERVICE: 05/01/2017 CHIEF COMPLAINT: Intractable vomiting. HISTORY OF PRESENT ILLNESS: The patient is a 56-year-old white male, who was admitted directly to the hospital from home with a history of progressive severe nausea, vomiting and weight loss over the last several weeks. He reported that he had fallen at least 3 times during that period and actually, the problem has been going on for several months. He has lost a significant amount of weight in excess of 30-40 pounds at least. Prior to that, he was doing well with his recovery after a prolonged hospital stay and recovery from autoimmune encephalitis. During my visit with him, he had not been able to keep any food down and altered and was barely able to get out of the bed and only then with assistance. PAST MEDICAL HISTORY: Including autoimmune encephalitis, chronic hypertension, type 2 diabetes mellitus, chronic gout, chronic low back pain, hyperlipidemia, diverticulosis, status post sigmoid colon resection greater than 10 years ago, cellulitis in the right lower extremity in the past, bipolar affective disorder, Peyronie disease, left carotid occlusive disease, status post left carotid endarterectomy, tremor due to prolonged antipsychotic medications, multiple small strokes versus encephalitis, cirrhosis due to BAXTER versus prior history of alcohol use. He had testicular cancer a great many years ago and has not had any recurrences recently. ALLERGIES: HE IS ALLERGIC TO NONSTEROIDAL ANTI-INFLAMMATORY DRUGS, IT CAUSED THROAT SWELLING. PENICILLIN ALSO CAUSES ANAPHYLAXIS AND SULFA CAUSES SEVERE GI UPSET. PAST SURGICAL HISTORY: Includes appendectomy, cholecystectomy, hernia repair, penile prostheses x 2, shoulder surgeries bilaterally. FAMILY HISTORY: He is adopted. 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 He is to Nena. He has no children. He is an ex-smoker. REVIEW OF SYSTEMS: See history of present illness for most of the information. [facility] [address] [place] [address] HISTORY AND PHYSICAL Name: ROWAN CHACON Room #: [facility] IN .R.#: [id number] Admission: 05/01/17 Attend Phys: Charles Fink MD Discharge: Date of : 62 Report #: [id number] The patient, in particular reports a fall 2 weeks ago in his bathroom while his was at religion. He lied there for between half an hour to an hour with difficulty getting up, but after that, seemed to be more stable. It is noteworthy that recently he was felt to be having thrush and was placed on Nystatin swish and swallow, but after several days of treatment with this, he did not improve and did not like the taste of it and was changed over in the last few days prior to this admission to fluconazole, but had no real improvement in his symptoms. PHYSICAL EXAMINATION: VITAL SIGNS: At the hospital shows temperature of 97.9, pulse of 122, respirations of 18, blood pressure of 105/81 supine in the right arm. He is known to be 5 feet 9 inches tall and currently weighs 146 pounds. At his discharge from the 09/06/2016 admission, his weight was known to be 188 pounds at discharge. GENERAL: The patient is a cachectic-appearing, middle-aged white male who looks older than his stated age of 56 years. HEENT: The extraocular muscles are intact. The oropharynx is dry and pink without lesions or exudates. The sinuses are nontender. Hearing is grossly normal. NECK: Without adenopathy or thyromegaly or mass. His range of motion is fairly good, it is slow. LUNGS: Fairly clear bilaterally. CARDIOVASCULAR: Reveals tachycardia. ABDOMEN: Soft with vague generalized discomfort when palpated, but no peritoneal signs, in particular, no guarding or rigidity. EXTREMITIES: Without cyanosis or clubbing. There is trace pedal edema bilaterally, but peripheral pulses are intact in all 4 distal extremities. The patient is chronically tender in his sacroiliacs bilaterally. SKIN: Evaluation of the skin shows no evidence of breakdown either on his spine or buttocks or heels. He does have some mild tenderness in the left shoulder. Please note he has multiple surgical scars as outlined above. ASSESSMENT AND PLAN: 1. Autoimmune encephalitis -- I am particularly concerned because of reports from and his of episodes of confusion and loss of balance and general functional in the last week or 2. It certainly appears that the nausea and vomiting is causing him to have great malnutrition issues as he has dropped 40 pounds in the last year. I will obtain Gastroenterology consult with Dr. Lewis to see if he thinks that there is any benefit to pursuing endoscopy. I am suspicious he might have an ulcer contributing to his symptoms. 2. Abnormal EKG. An EKG was obtained this evening, which showed the possibility that the patient has had an anterior myocardial infarction, but does not show acute ischemic changes. I have requested a Cardiology consult as well as cardiac enzymes and full echocardiogram in the morning to assess his cardiac function. He was seen by his spring tester, Dr. Yao, as recently as about a [facility] [address] [place] [address] HISTORY AND PHYSICAL Name: ROWAN CHACON Room #: 241-P [facility] IN M.R.#: [id number] Admission: 05/01/17 Attend Phys: Charles Fink MD Discharge: Date of : 62 Report #: [id number] month ago and he has an implanted device looking for any evidence of arrhythmias. Chest x-ray has been performed and shows no acute congestive heart failure or infiltrates. 3. Severe malnutrition -- as above. We will treat the underlying problem and will try to give him some nutritional supplements to help improve his nutritional status and get him well. 4. Hypertension. We will continue beta-nancy only right now as his blood pressures are low and he is tachycardic and there is concern about the possibility of coronary artery disease, not previously suspected. 5. Hyperlipidemia. Resume statin therapy. 6. Type 2 diabetes mellitus. He has not been needing any of his insulin recently because he has not been able to keep his food down much. 7. Osteoarthritis, multiple sites and history of recurrent gout -- we will hold colchicine for now. Continue the allopurinol and monitor for the need for any acute anti-inflammatory therapy. Nonsteroidal anti-inflammatories are contraindicated in this patient. 8. History of bipolar affective disease. 9. Multiple other medical problems as outlined above. We will manage the patient cautiously, starting telemetry tonight and should there be any signs that there is acute cardiac damage, we will transfer him to the coronary care unit course or ICU when a bed is available. I have requested a Cardiology consult to see him tomorrow. <ELECTRONICALLY SIGNED> By: Charles Fink MD 05/02/17 1327 2253 0045 Charles Fink MD /nt
--- NOTE | ~2017-05-01 | 2DMMODE ---
[facility] [address] [place] [address] 2 D/M-MODE ECHOCARDIOGRAM Name: ROWAN CHACON FARHAT Room #: 241-P ADM IN M.R.#: [id number] Admission: 05/01/17 Attend Phys: Charles Fink MD Discharge: Date of : 62 Date of Service: 05/02/17 1303 Report #: [id number] THIS REPORT FOR: //name// APPROVED REPORT Study performed: 05/02/2017 11:54:30 EXAM: Comprehensive 2D, Doppler, and color-flow Echocardiogram Patient Location: ICU Room #: 241 Status: routine BSA: 1.81 HR: 131 bpm BP: 104/66 mmHg Other Information Study Quality: Technically Limited Indications Abnormal ECG Diabetes Hypertension/HDD Echo Enhancing Agent Indication: Endocardial border delineation Agent(s) / Amount(s) Used: Optison 3 cc Left Ventricle The left ventricle is normal size. There is normal left ventricular wall thickness. Left ventricular ejection fraction is severely decreased. LVEF is 25-30%. This study is not technically sufficient to allow evaluation of the LV diastolic function. Right Ventricle Right ventricle is not well visualized. The right ventricular systolic function is normal. Atria Left atrium is not well visualized. Right atrium is not well visualized. Aortic Valve The aortic valve is not well visualized. No aortic regurgitation is present. There is no aortic valvular stenosis. [facility] [address] [place] [address] 2 D/M-MODE ECHOCARDIOGRAM Name: ROWAN CHACON Room #: 241-P ADM IN M.R.#: [id number] Admission: 05/01/17 Attend Phys: Charles Fink MD Discharge: Date of : 62 Date of Service: 05/02/17 1303 Report #: [id number] Mitral Valve The mitral valve is normal in structure. There is no mitral valve regurgitation noted. No evidence of mitral valve stenosis. Tricuspid Valve Tricuspid valve is not well visualized. There is no tricuspid valve regurgitation noted. Pulmonic Valve Pulmonic valve is not well visualized. Great Vessels The aortic root is normal in size. IVC is not visualized. Pericardium There is no pericardial effusion. <Conclusion> The left ventricle is normal size. Left ventricular ejection fraction is severely decreased. LVEF is 25-30%. The aortic valve is not well visualized. The mitral valve is normal in structure. Tricuspid valve is not well visualized. Pulmonic valve is not well visualized. There is no pericardial effusion. <ELECTRONICALLY SIGNED> By: Abhijit Gregory MD 05/02/17 1303 1303 1303 Abhijit Gregory MD /INF
--- NOTE | ~2017-05-01 | HC ---
[facility] [place] [address] [place] [address] CONSULTATION Name: ROWAN CHACON Room #: 357-P ADM IN M.R.#: [id number] Admission: 05/01/17 Attend Phys: Charles Fink MD Discharge: Date of : 62 Report #: [id number] THIS REPORT FOR: //name// CC: Ruth Zapata DO Charles Moreno MD [facility] [place] REASON FOR CONSULTATION: Coagulopathy. HISTORY OF PRESENT ILLNESS: The patient is a 56-year-old gentleman in the ICU who had been in the hospital recently and had gone home and came back in with progressive severe nausea, vomiting, weight loss. He was originally admitted this time on 05/01/2017, his platelets were 129; on 05/02/2017, there were 105; yesterday, they were 267; today, they are 56. Also of note is back in 09/2016, his INR was 1. On admission on 05/01/2017, it was 2.7 with an APTT of 44.9; yesterday, the INR was up to 3.8, after 2 units of FFP, it was 1.5. Note that today, his coags are pending. The patient had had some questionable Hemoccult positivity, but I do not believe there had been any gross bleeding. He has had some mouth sores. He has no history of coagulopathy. He had not been any blood thinners. No recent blood clots. The patient is currently in the ICU, very sleepy, not able to answer many questions. I talked to the nurse, it sounds like he is stable and looks somewhat better than yesterday. He is not on pressors if I understand correctly. PAST MEDICAL HISTORY: Very complex and notable for autoimmune encephalitis. He has been on immunosuppressants in the past, also chronic hypertension, type 2 diabetes, cirrhosis of BAXTER to subtype, chronic gout, hyperlipidemia, history of diverticulosis, history of some sigmoid colon resection in the past, bipolar affective disorder, Peyronie's disease, left carotid occlusive disease with a carotid endarterectomy in the past, tremor in the past, multiple small strokes versus encephalitis in the past, also testicular cancer many years ago. PAST SURGICAL HISTORY: Appendectomy, cholecystectomy, hernia repair, penile prosthesis, shoulder surgeries. FAMILY HISTORY: He is adopted. 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 No children. He is an ex-smoker. Signs there may have been a question of alcohol. Also, he has the vital evidence here, cardiomyopathy with an EF around 25%. [facility] [address] [place] [address] CONSULTATION Name: ROWAN CHACON Room #: 357-P [facility] IN M.R.#: [id number] Admission: 05/01/17 Attend Phys: Charles Fink MD Discharge: Date of : 62 Report #: [id number] LABORATORY DATA: Recent x-rays include a CT abdomen and pelvis on 05/02/2017 that I believe is nonspecific, though he had some diffuse bowel wall thickening. Note that the patient had an EGD yesterday that showed some pewfjscb-wv-lcdlff gastritis. He had a colonoscopy, which showed some slight thickening of the transverse colon and some thickening in the distal colon, but nonspecific biopsies were taken. Chest x-ray yesterday showed a decrease inspiration with mild increased medial basilar density suggesting he had atelectasis. Lab review shows a recent BUN of 38, creatinine of 4.4. Transaminase and other liver functions normal. Note that the uric acid is 3.6, alkaline phosphatase 85, albumin 2.6. Recent iron test showed TIBC of 139. Protime today is pending, note suggested he is down to 1.5 from a high of 3.8 the day before the FFP. Note as mentioned above, the APTT had been normal on admit and normal on 04/26/2017 and then went out on admit this time. Fibrinogen recently elevated at 436.1. Recent white count from today 10.2, hemoglobin 7.2, which is down slightly from yesterday of 7.5 and 7.7, MCV 80.3, platelets today 56. As mentioned above and on admit this time 129; back in September, had been 105; back in 04/2016, in 230 range. Differential showed slight left shift. No acute forms. Immature platelet fraction pending. The patient had a hypercoag workup in April of last year, including antithrombin 3. Protein C and protein S activity, factor V Leiden, prothrombin gene mutation, which were unremarkable. DRVVT at that time had been slightly elevated at 56.9, platelet antibodies IIb/IIIa pending. Anticardiolipin antibodies in the past have been normal. Sed rate recently 96. TSH in September had been 4.18. B12 pending, in the past had been normal. Folate in September had been normal. Hepatitis test I believe recently negative. C. diff test negative. Vitamin D in the past had been low, was checked again yesterday and pending. PHYSICAL EXAMINATION: GENERAL: The patient appears his stated age. He is in ICU bed, somewhat lethargic, able to nod his head and answer questions. VITAL SIGNS: Recent height is 5 feet 9 inches, which is 175.3 cm. Weight is 162.4 pounds, which is 73.7 kilograms. Blood pressure is recently 125/70 last night. O2 sat 98%, afebrile at 98.2. MOOD: The patient is conversant and pleasant, though somewhat slow to answer. NEUROLOGIC: The patient's face is symmetrical, but he is somewhat somnolent, though it is early in the morning. He is nodding his questions and making several comments which seem appropriate. HEENT: Oropharynx does have some slight, almost abrasion and slight irritation to the inside of his mouth. They are not quite petechiae and these are just inside and may be from trauma from his incisors. No enlarged lymph nodes to the neck or the groin. LUNGS: Seem mostly clear. HEART: Regular rate. Slightly tachycardic. ABDOMEN: Scaphoid, nontender, no masses. EXTREMITIES: Trace edema. [facility] [address] [address] CONSULTATION Name: ROWAN CHACON Room #: 357-P ADM IN M.R.#: [id number] Admission: 05/01/17 Attend Phys: Charles Fink MD Discharge: Date of : 62 Report #: [id number] ASSESSMENT AND PLAN: 1. Compared to recent admit elevation of INR and APTT partially corrected with 2 units of FFP down to normal range, I suggest that this is a factor deficiency, most likely related to chronic illness and recent sepsis. Today's lab is pending. We will follow serially and would suggest replacement of factors if INR greater than 2, would also suggest platelet transfusion with the patient bleeding or platelets less than 20 or 30,000. 2. Renal insufficiency, defer to Nephrology, has recently had hemodialysis. 3. Sepsis. Cultures pending, continue antibiotics. 4. Cardiomyopathy. Continues meds, defer to others. 5. Autoimmune encephalitis, on chronic immunosuppression. 6. Diabetes mellitus type 2, medications per others. 7. Cirrhosis due to BAXTER and history of alcohol use, defer to others. 8. Bipolar disorder, defer to others. 9. Gout, follow. CURRENT MEDICATIONS: List includes levofloxacin every 48 hours, pantoprazole 40 b.i.d., carvedilol 3.125 b.i.d., vancomycin 1 gram postdialysis, lidocaine swish and swallow, quetiapine 50 mg q.4h. p.r.n., insulin on a sliding scale, methylprednisolone 40 q.i.d. IV, multivitamin with iron daily, aspirin 81 mg daily, lamotrigine 50 mg daily, levothyroxine 75 mcg daily, ipratropium and albuterol respiratory therapy t.i.d., Compazine 5 mg IV p.r.n., fentanyl p.r.n., Tylenol p.r.n., Zofran p.r.n., lamotrigine 100 mg at bedtime, melatonin 5 mg h.s. p.r.n., sennosides 1 tab daily. Note that he had also been on mycophenolate. Note that he also received Phytonadione/vitamin K 5 mg on 05/03/2017. <ELECTRONICALLY SIGNED> By: Truong Arias MD 05/06/17 1320 0708 1227 Truong Arias MD /nt
--- NOTE | ~2017-05-01 | S ---
[facility] [address] [place] [address] SURGICAL PATH RPT PROCEDURE Name: DAVID CHACON Room #: 241-P ADM IN M.R.#: [id number] Admission: 05/01/17 Date of : 62 Discharge: Report #: [id number] Path Case #: [id number] PATHOLOGY REPORT COLLECTION DATE: 05/03/2017 RECEIVED DATE: 05/03/2017 SUBMITTING PHYS: Dr. Jenniffer Zapata OTHER PHYS: Dr.Mark Fink SPECIMEN(S) RECEIVED: A.Random deodenum B.Random antrum C.Transverse random D.Splenic flexure random E.Descending colon random F.Edematous sigmoid colon G.Rectum random * * * * * * * * * * * * FINAL DIAGNOSIS: A. Random deodenum: - Duodenal mucosa with focal foveolar gastric metaplasia and focal villous blunting. - See comment. B. Random antrum: - Mild chronic inactive gastritis. - An H. pylori immunostain is negative (Block B1; appropriately reactive control). C. Transverse random: - Chronic active colitis with architectural distortion, moderate. - Granuloma not identified. D. Splenic flexure random: - Chronic active colitis with architectural distortion, moderate. - Granuloma not identified. E. Descending colon random: - Chronic active colitis with architectural distortion, mild to moderate. - Granuloma not identified. F. Edematous sigmoid colon: - Chronic active colitis with architectural distortion, mild to moderate. - Granuloma not identified. G. Rectum random: - Chronic active colitis with architectural distortion, mild to moderate. - Granuloma not identified. [facility] [address] [place] [address] SURGICAL PATH RPT PROCEDURE Name: DAVID CHACON Room #: 241-P ADM IN M.R.#: [id number] Admission: 05/01/17 Date of : 62 Discharge: Report #: [id number] Path Case #: [id number] COMMENT: Part A Focal foveolar gastric metaplasia is present in this biopsy specimen. Uninvolved villi show mostly normal architecture with no increase in intraepithelial lymphocytes, however there is focal blunting. These findings could all be observed in the setting of peptic duodenitis. Given the focal blunting, gluten sensitive enteropathy would also be in the differential, but less likely given the lack of diffuse blunting, and no increase in intraepithelial lymphocytes. Clinical correlation is recommended. PATHOLOGIST: Phillip Kearney M.D. REPORT ELECTRONICALLY SIGNED BY: Phillip Kearney M.D. DATE/TIME: 05/04/2017 10:30 * * * * * * * * * * * * GROSS PATHOLOGY: A. Received in formalin labeled "David Chacon random duodenum biopsies," are 2 segments of blanchard soft tissue measuring 0.8 x 0.2 x 0.2 cm in aggregate dimensions and ranging from 0.3 to 0.5 cm in maximum dimension. The specimen is submitted entirely in cassette A1. B. Received in formalin labeled "David Chacon, random antrum biopsies," are 3 segments of blanchard soft tissue measuring 1.0 x 0.9 x 0.3 cm in aggregate dimensions and ranging from 0.2 to 0.4 cm in maximum dimension. The specimen is submitted entirely in cassette B1. C. Received in formalin labeled "David Chacon, transverse colon random biopsies," is a single segment of blanchard soft tissue measuring 0.4 cm in maximum dimension. The specimen is submitted entirely in cassette C1. D. Received in formalin labeled "David Chacon, splenic flexure random biopsies," are 2 segments of blanchard soft tissue measuring 0.5 x 0.2 x 0.2 cm in aggregate dimensions and ranging from 0.2 to 0.3 cm in maximum dimension. The specimen is submitted entirely in cassette B1. E. Received in formalin labeled "David Chacon, descending colon random biopsies," are 2 segments of blanchard soft tissue measuring 0.6 x 0.2 x 0 point cm in aggregate dimensions and ranging from 0.2 to 0.4 cm in maximum dimension. The specimen is submitted entirely in cassette E1. F. Received in formalin labeled "David Chacon, edematous sigmoid colon biopsies," are 2 segments of blanchard soft tissue measuring 0.6 x 0.2 x 0.2 cm in aggregate dimensions and ranging from 0.2 to 0.4 cm in maximum dimension. The specimen is submitted entirely in cassette F1. G. Received in formalin labeled "David Chacon, rectal random biopsies," are 3 segments of blanchard soft tissue measuring 0.8 x 0.5 x 0.2 cm in aggregate dimensions and ranging from 0.2 to 0.[address] [address] SURGICAL PATH RPT PROCEDURE Name: DAVID CHACON Room #: 241-P ADM IN M.R.#: [id number] Admission: 05/01/17 Date of : 62 Discharge: Report #: [id number] Path Case #: [id number] maximum dimension. The specimen is submitted entirely in cassette G1. (TSD; 05/03/2017) CLINICAL HISTORY: Pre-OP DX: Persistent nausea and vomiting, diarrhea Post-OP DX: Gastritis, sigmoid edema INITIAL CPT CODE(S): A; 22596 B; 65018, 46406 C; 79328 D; 83395 E; 13781 F; 43471 G; 15054 Professional services performed by [facility] at [place] [address], [place] [address] Technical services performed by [facility] at [address] [place] [address], [facility] [[email or web address] [address] [address]. [facility] [address] [place] [address] PHONE: [phone] DIRECTOR: Jose Clarke M.D. * * * END OF REPORT * * *
--- NOTE | ~2017-05-01 | HC ---
[facility] [place] [address] [place] [address] CONSULTATION Name: ROWAN CHACON Room #: 357-P ADM IN M.R.#: [id number] Admission: 05/01/17 Attend Phys: Charles Fink MD Discharge: Date of : 62 Report #: [id number] THIS REPORT FOR: //name// CC: Charles Fink REASON FOR CONSULTATION: Acute kidney injury. HISTORY OF PRESENT ILLNESS: A 56-year-old who is not able to provide me with the details of the history. The details were obtained from his along with his physician, Dr. Charles Fink. He is known to have autoimmune encephalitis and is being treated for that with CellCept. He has diabetes mellitus, hypertension. He is also known to have hyperlipidemia. He had some GI illness in the last couple of weeks with progressive weight loss, nausea, vomiting with no improvement in his overall condition. There was reported to 30-40 pounds weight loss. He has been feeling weak. No reported fever or chills. No chest pain or palpitation. He has been crippled with his illness and not able to do anything. Baseline creatinine is around 1.0. On presentation to the Emergency Room, his creatinine was found to be 13.9 with a BUN of 116 and a wide anion gap. Troponin was mildly elevated. I am being asked to manage his acute kidney injury. PAST MEDICAL HISTORY: 1. Autoimmune encephalitis. 2. Hypertension. 3. Testicular cancer. 4. Tremors. 5. Small stroke. 6. Cirrhosis due to BAXTER. 7. Hyperlipidemia. 8. Cellulitis of the right lower extremity. 9. Bipolar. 10. Left carotid occlusive disease. 11. Status post endarterectomy. 12. Hypertension. 13. Diabetes mellitus. ALLERGIES: Nonsteroidal anti-inflammatory. MEDICATIONS: PENICILLIN. PAST SURGICAL HISTORY: 1. Cholecystectomy. 2. Hernia repair. 3. Shoulder surgery. 4. Penile prosthesis. 5. Appendectomy. 6. Orchiectomy. [facility] [address] [place] [address] CONSULTATION Name: ROWAN CHACON Room #: 357-P [facility]#: [id number] Admission: 05/01/17 Attend Phys: Charles Fink MD Discharge: Date of : 62 Report #: [id number] FAMILY HISTORY: He is adopted. 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 He has no children. He is . REVIEW OF SYSTEMS: Unobtainable from the patient, by the family reported to the following: GENERAL: Weakness, nausea, vomiting, diarrhea, oral thrush. PHYSICAL EXAMINATION: GENERAL: He is disoriented. VITAL SIGNS: Temperature was 97.9, pulse was 122, blood pressure was 105/81. Weight is 146. GENERAL: Emaciated. HEAD AND NECK: Very dry mucous membrane. CHEST: Decreased air entry bilaterally. CARDIOVASCULAR: Regular with no rub. ABDOMEN: Soft, nontender. LOWER EXTREMITIES: No edema. LABORATORY VALUES: Reviewed. Thrombocytopenia, present. Sodium 138, potassium 4, chloride 95, carbon dioxide 19, BUN is 114, creatinine is 13.4, troponin is 0.9. IMAGING: Chest x-ray reviewed. ASSESSMENT, IMPRESSION AND PLAN: 1. Acute kidney injury. 2. Diabetes mellitus. 3. Hypertension. 4. Metabolic acidosis. 5. Remote history of autoimmune encephalitis. 6. This is a rather very acute and abrupt acute kidney injury. I will initiate the acute kidney injury workup. 7. We will reformulate his IV fluid. 8. In all likelihood, this is a prerenal acute kidney injury. However, he might have had an issue with acute tubular necrosis given the duration of his illness. 9. We will monitor his lab. 10. Avoid nephrotoxins. 11. We will revisit with his family members regarding initiation of dialysis in the next hours if there is no improvement in his acidosis and if he is not making plenty of urine. 12. Avoid any blood pressure medications at this time. 13. Continue with the usual blood sugar monitoring [place] [address] CONSULTATION Name: ROWAN CHACON Room #: 357-P ADM IN .R.#: [id number] Admission: 05/01/17 Attend Phys: Charles Fink MD Discharge: Date of : 62 Report #: [id number] 14. Hold vancomycin and check vancomycin level in the morning. 15. We will continue to follow along. <ELECTRONICALLY SIGNED> By: Ruth Winter MD 05/07/17 0636 0926 1155 Ruth Winter, /salma
--- NOTE | ~2017-05-01 | HC ---
[facility] [place] [address] CONSULTATION Name: ROWAN CHACON Room #: 241-P [facility] IN M.R.#: [id number] Admission: 05/01/17 Attend Phys: Charles Fink MD Discharge: Date of : 62 Report #: [id number] THIS REPORT FOR: //name// CC: Charles Fink REASON FOR CONSULTATION: I was asked to evaluate concerning gastroenteritis and acute renal failure. 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 Over the last 2 weeks, he has had nausea, vomiting and diarrhea, unable to keep much fluid or food down. Further generalized weakness and some confusion. Fell 3 times at home. Now admitted for further evaluation. No documented fever. No chills or sweats. He has had no travel. Lives at home with his , has otherwise been well. Has a pet dog. No other exposures noted. No recent antibiotics. Emesis had been mostly bile, had some blood in it today. No blood in his stool. Stool has been watery 2-3 times a day. He does complain of some abdominal pain. No bloating. No dysuria or frequency, back or flank pain. Has had some neck discomfort for several weeks now. Mild headache. No pharyngitis symptoms. No mucositis symptoms. No rash or lymphadenopathy. Denies any cough or sputum production. No chest pain or shortness of breath. REVIEW OF SYSTEMS: Otherwise, noncontributory. ALLERGIES: PENICILLIN with anaphylaxis. SULFA, GI upset. NONSTEROIDAL ANTI-INFLAMMATORIES with throat swelling. MEDICATIONS: As noted on his APR. He is off prednisone. He is on mycophenolate. He was given vancomycin and Levaquin at the time of admission. PAST MEDICAL HISTORY: Autoimmune encephalitis, hypertension, diabetes, hyperlipidemia, gout, chronic back pain and osteoarthritis, diverticulosis, sigmoid resection, right lower extremity cellulitis, bipolar affective disorder, Peyronie's disease, left carotid endarterectomy, tremor, multiple small strokes, cirrhosis due to BAXTER versus alcohol, remote testicular cancer, prostatitis, previous left renal stent. PAST SURGICAL HISTORY: Appendectomy, cholecystectomy, herniorrhaphy, penile prosthesis bilateral shoulder surgeries. FAMILY HISTORY: Adopted. 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 Past smoker. No significant current alcohol. PHYSICAL EXAMINATION: VITAL SIGNS: Afebrile, tachycardic 130, blood pressure 104/67. [address] [address] CONSULTATION Name: ROWAN CHACON Room #: 241-P [facility] IN .R.#: [id number] Admission: 05/01/17 Attend Phys: Charles Fink MD Discharge: Date of : 62 Report #: [id number] GENERAL: Peripheral IV in place. He was weak, pale, lethargic but oriented and able to converse. Able to give a reasonable history. His was present who gave most of his history. SKIN: Unremarkable. LYMPH: Unremarkable. HEENT: Remarkable for some dry blood in his mouth. NECK: 1+ rigidity, unclear if this was arthritis induced. He stated that this has been an issue for him for several weeks. LUNGS: Clear. HEART: Tachycardic and regular. ABDOMEN: Soft, diffusely tender, no hepatosplenomegaly or mass. Romero catheter in place. RECTAL: Not performed. EXTREMITIES: Unremarkable. LABORATORY STUDIES: Sodium 138, potassium 4, bicarbonate 19, creatinine is 13.4. Sedimentation rate 96, lactate 0.9, alkaline phosphatase 139. Liver function test normal. Hemoglobin 9.4, platelet count 105,000, white count 9.5 with 75% segs, 19% lymphs. Urinalysis with 2+ protein, moderate rbc's. Chest x-ray was clear. Ultrasound of the kidneys is pending. Procalcitonin 0.5. IMPRESSION AND PLAN: A 56-year-old with an autoimmune cerebritis, on immunosuppression with mycophenolate, presents with 2-week history of gastroenteritis symptoms, now with acute renal failure, anemia, thrombocytopenia, metabolic acidosis likely from his acute renal failure. Considerations include infectious gastroenteritis versus diverticular disease flare versus other systemic infectious process. Also, consider autoimmune disease, although previously it has been more focal to his CANDY BUTCHER. It appears that the neck pain is more musculoskeletal considering his longstanding complaints. We will need to see how his initial studies guaman out. If no improvement, we will need spinal tap. It is noted that his previous three CSF examinations were unremarkable. The most recent one was 1 year ago. I have discussed the case in detail with the patient and his . We will contact Dr. Fink and discuss approach. I would recommend IV antibiotic therapy, fluid resuscitation, imaging of his abdomen and pelvis as well as his head. Check stool pathogens. Have GI evaluate for possible endoscopy. <ELECTRONICALLY SIGNED> By: Temo Lobo MD 05/03/17 1117 0951 1240 Temo Lobo MD /nt
--- NOTE | ~2017-05-01 | EKG ---
[address] [address] ELECTROCARDIOGRAM REPORT Name: ROWAN CHACON Room #: 241-P ADM IN M.R.#: [id number] Admission: 05/01/17 Attend Phys: Charles Fink MD Discharge: Date of : 62 Report #: [id number] THIS REPORT FOR: //name// [facility] Test Date: 2017-05-01 Test Time: 21:42:23 Pat Name: ROWAN CHACON Department: Room: 241 Gender: M Speech Lang Path Therapist: Jill KNOWLES : 1960 Requested By: Charles Fink Order Number: [id number] MD: Juan Valdez Measurements Intervals [place] Rate: 125 P: -13 WI: 128 QRS: 91 QRSD: 98 T: 6 QT: 325 QTc: 469 Interpretive Statements Sinus tachycardia Probable left atrial enlargement Probable anterior infarct, old Borderline T abnormalities, inferior leads Electronically Signed On 05-02-2017 7:28:37 CDT by Juan Valdez [email or web address] <ELECTRONICALLY SIGNED> By: Juan Valdez MD 05/02/17 0728 214 41 Juan Valdez MD /NANCY
--- NOTE | ~2017-05-01 | HC ---
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 His course has been complicated by intractable nausea and vomiting and increased falls and generalized weakness. He has had a weight loss of 30-40 pounds. He was admitted to [facility], noted to have severe sepsis and severe renal insufficiency, acute on chronic with a creatinine of over 13. He is currently in the ICU, has been receiving dialysis. He is to undergo an EGD later today. He is noted to have gout, right great toe. He also has a new cardiomyopathy. He has severe malnutrition. We are seeing him in rehabilitation medicine consultation. PAST MEDICAL HISTORY: Includes prior history of multiple CVAs, autoimmune cerebritis bipolar with severe paranoia, placed on large dose Seroquel. He had a prior acute in-hospital inpatient rehabilitation stay back in 04/2016 and did very well at that time ambulating 500 feet without a device and was able to return back home with his . MEDICATIONS: Please see the full medication listing. ALLERGIES: INCLUDE ALLERGIC TO NONSTEROIDALS, PENICILLIN, AND SULFA. PAST SURGICAL HISTORY: Includes appendectomy, cholecystectomy, hernia repair, penile prosthesis x 2, and shoulder surgeries bilaterally. FAMILY HISTORY: Noted to be adopted. 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 He is and lives in a house with his . His helps some with his self-care. He was using a walker to get around. He has had several falls for the last couple of weeks. REVIEW OF SYSTEMS: Did not offer any current complaints of chest pain or shortness of breath. He does have the nausea, which is an issue. Has generalized weakness. No focal extremity pain complaints. PHYSICAL EXAMINATION: GENERAL: A 56-year-old white male in no obvious distress, seen in the Intensive Care Unit. VITAL SIGNS: Temperature 98.6, pulse 113, respirations 12, and blood pressure [address] [address] CONSULTATION Name: ROWAN CHACON FARHAT Room #: [address] [place] [address] IN M.R.#: [id number] Admission: 05/01/17 Attend Phys: Charles Fink MD Discharge: 05/10/17 Date of : 62 Report #: [id number] /68. NEUROLOGIC: He is alert, cooperative, chronically ill appearing white male. Faces are symmetric. EXTREMITIES: Functional range of motion of the upper extremity strength is grade 4- to 3+/5. DTRs are trace to 1. Lower extremities, functional range of motion with strength is grade 3+/5. DTRs are trace to 1. ASSESSMENT: A 56-year-old white male previously known to me with the following problem list: 1. Autoimmune encephalitis, on chronic immunosuppression. 2. Intractable nausea and vomiting with gastroenteritis, to undergo EGD. 3. Severe sepsis. 4. Acute renal insufficiency on chronic kidney disease, currently on dialysis. 5. New cardiomyopathy. 6. Gout, right great toe. 7. Diabetes mellitus type 2. 8. Severe malnutrition. PLAN: Therapy evaluations are underway. He certainly may warrant an acute in-hospital inpatient rehabilitation stay to further maximize his functional independence and strength as he further medically stabilizes to try to enable him to return back to the home setting. At this point in time, we will follow along with you regarding his rehab therapy needs. <ELECTRONICALLY SIGNED> By: Shay Clemens MD 05/11/17 1408 1316 40 Shay Clemens MD /nt
--- NOTE | ~2017-05-01 | EKG ---
[address] [address] ELECTROCARDIOGRAM REPORT Name: ROWAN CHACON Room #: 241-P ADM IN M.R.#: [id number] Admission: 05/01/17 Attend Phys: Charles Fink MD Discharge: Date of : 62 Report #: [id number] THIS REPORT FOR: //name// [facility] Test Date: 2017-05-02 Test Time: 06:11:54 Pat Name: ROWAN CHACON Department: Room: 241 P Gender: M Area Operations Director: GR : 1960 Requested By: Charles Fink Order Number: [id number] MD: Juan Valdez Measurements Intervals [place] Rate: 130 P: 131 VA: 220 QRS: 101 QRSD: 100 T: 125 QT: 380 QTc: 559 Interpretive Statements Sinus tachycardia vs SVT Electronically Signed On 05-02-2017 7:30:28 CDT by Juan Valdez [email or web address] <ELECTRONICALLY SIGNED> By: Juan Valdez MD 05/02/17 0730 0611 0611 Juan Valdez MD /NANCY
[~2017-05-01 19:50] MED LIST changes: +CELLCEPT 250 M250 MG PO; +DUONEB 2.5-0.5 M3 ML INH; +K-DUR 20 MEQ T20 MEQ PO; +LASIX 40 MG TAB40 M1 PO; +LEVOTHYROXIN0.075 MG PO; +MINOCIN100 MG PO; +OXYCODONE HCL 55 MG PO; +PANTOPRAZOLE SO40 M1 PO; +ROBITUSSIN DM118 ML PO; +SEROQUEL XR 30300 M1 PO
[2017-05-01 20:10] VITALS: BP 105/81
[2017-05-01 22:36] LABS: ABSOLUTE NEUTROPHILS 8.7 thou/uL (1.4-8.2); BASOPHILS 0.4 % (0.0-2.0); EOSINOPHILS 0.2 % (0.0-3.0); HEMATOCRIT 32.1 % (42.0-52.0); HEMOGLOBIN 10.5 gm/dL (14.0-18.0); MCH 26.7 pg (26.0-34.0); MCHC 32.6 g/dL (28.0-37.0); MONOCYTES 5.2 % (1.0-8.0); PLATELET COUNT 129 thou/uL (150-400); POLYS 75.2 % (36.0-66.0); RBC 3.92 mil/uL (4.50-6.00); RDW 13.5 % (10.5-14.5); WBC 11.6 thou/uL (4.0-11.0)
[2017-05-01 22:43] LABS: CALCIUM 10.5 mg/dL (8.5-10.1); CREATININE 13.9 mg/dL (0.7-1.3); POTASSIUM 3.8 mmol/L (3.5-5.1)
[2017-05-01 22:49] LABS: INR 2.7; PROTIME 26.8 Seconds (9.3-11.4)
[2017-05-01 22:52] LABS: ALBUMIN 3.5 g/dL (3.4-5.0); DIRECT BILIRUBIN 0.3 mg/dL (<0.1-0.3); MAGNESIUM 1.9 mg/dL (1.8-2.4); TOTAL BILIRUBIN 0.6 mg/dL (<0.1-1.0); TOTAL PROTEIN 7.5 g/dL (6.4-8.2)
[2017-05-01 22:53] LABS: TROPONIN-I 0.7 ng/mL (<0.06)
[2017-05-02] VITALS (87 sets, daily range): BP systolic 70–130; BP diastolic 53–84
[2017-05-02 00:04] LABS: APTT 44.9 Seconds (24.5-32.8); FIBRINOGEN 436.1 mg/dL (210-360)
[2017-05-02] MEDS ORDERED: LANTUS100 UNIT/M SUBQ (00:09)
[2017-05-02] MEDS ORDERED: LOPRESSOR25 PO (00:10)
[2017-05-02] MEDS ORDERED: TRANSDERM-SCOP1 EACH TOP (00:12)
[2017-05-02] MEDS ORDERED: DIFLUCAN100 MG PO (00:15)
[2017-05-02 00:40] LABS: BE(vivo) -8.3 mmol/L (-2 to +3); HCO3 16.5 mmol/L (22.0-26.0); PCO2 31.8 mmHg (35.0-45.0); PO2 92.8 mmHg (80.0-100.0); pH 7.333 (7.360-7.450); sO2 96.7 % (92.0-98.0)
[2017-05-02 01:34] LABS: URINE BLOOD 3+ (Negative); URINE CLARITY CLEAR; URINE COLOR YELLOW; URINE GLUCOSE-RANDOM* NEGATIVE (Negative); URINE KETONES NEGATIVE (Negative); URINE LEUKOCYTES-REFLEX NEGATIVE (Negative); URINE NITRITE-REFLEX NEGATIVE (Negative); URINE PROTEIN (DIPSTICK) 2+ (Negative); URINE SPECIFIC GRAVITY 1.025 (1.005-1.035); URINE UROBILINOGEN 0.2 E.U./dl (0.2-1.0)
[2017-05-02 01:38] LABS: ICTOTEST (BILI CONFIRMATORY) Negative (Negative); URINE BILIRUBIN NEGATIVE (Negative)
[2017-05-02 02:02] LABS: CASTS None Seen /LPF (None Seen); URINE WBC-REFLEX 0-5 Rare /HPF (0-5)
[2017-05-02 02:03] LABS: AMORPHOUS URATES Moderate /LPF (None Seen); BACTERIA-REFLEX None Seen /HPF (None Seen); SQUAMOUS 0-3 Few /LPF (0-3)
[2017-05-02 04:52] LABS: HEMATOCRIT 27.8 % (42.0-52.0); HEMOGLOBIN 9.4 gm/dL (14.0-18.0); MCH 27.3 pg (26.0-34.0); MCHC 33.9 g/dL (28.0-37.0); MCV 80.6 fL (80.0-100.0); RBC 3.45 mil/uL (4.50-6.00); RDW 13.5 % (10.5-14.5); WBC 9.5 thou/uL (4.0-11.0)
[2017-05-02 05:04] LABS: CALCIUM 9.7 mg/dL (8.5-10.1); CREATININE 13.4 mg/dL (0.7-1.3)
[2017-05-02 05:13] LABS: TROPONIN-I 0.95 ng/mL (<0.06)
[2017-05-02 10:24] LABS: CALCIUM 9.8 mg/dL (8.5-10.1); CREATININE 13.3 mg/dL (0.7-1.3); POTASSIUM 4.2 mmol/L (3.5-5.1)
[2017-05-02 10:33] LABS: TROPONIN-I 0.93 ng/mL (<0.06)
[2017-05-02 12:49] LABS: HEMATOCRIT 27.5 % (42.0-52.0); HEMOGLOBIN 9.3 gm/dL (14.0-18.0)
[2017-05-02 13:05] LABS: URINE CREATININE-RANDOM* 143.5 mg/dL; URINE PROTEIN-RANDOM* 139.5 mg/dL (<11.9)
[2017-05-02 14:40] LABS: CALCIUM 9.1 mg/dL (8.5-10.1); MAGNESIUM 1.5 mg/dL (1.8-2.4); POTASSIUM 3.6 mmol/L (3.5-5.1)
[2017-05-02 18:34] LABS: HEMATOCRIT 24.1 % (42.0-52.0); HEMOGLOBIN 8.3 gm/dL (14.0-18.0)
[2017-05-03] VITALS (93 sets, daily range): BP systolic 75–135; BP diastolic 50–85
[2017-05-03 05:44] LABS: HEMATOCRIT 22.8 % (42.0-52.0); HEMOGLOBIN 7.6 gm/dL (14.0-18.0)
[2017-05-03 05:50] LABS: CALCIUM 8.7 mg/dL (8.5-10.1); POTASSIUM 3.2 mmol/L (3.5-5.1)
[2017-05-03 05:56] LABS: INR 3.8; PROTIME 38.2 Seconds (9.3-11.4)
[2017-05-03 08:03] LABS: HEMATOCRIT 22.6 % (42.0-52.0); HEMOGLOBIN 7.6 gm/dL (14.0-18.0); MCHC 33.6 g/dL (28.0-37.0); MCV 80.5 fL (80.0-100.0); RBC 2.81 mil/uL (4.50-6.00); RDW 13.7 % (10.5-14.5); WBC 4.5 thou/uL (4.0-11.0)
[2017-05-03 08:36] LABS: ALBUMIN 2.7 g/dL (3.4-5.0); CALCIUM 8.5 mg/dL (8.5-10.1); CREATININE 6.9 mg/dL (0.7-1.3); DIRECT BILIRUBIN 0.2 mg/dL (<0.1-0.3); POTASSIUM 3.1 mmol/L (3.5-5.1); TOTAL BILIRUBIN 0.5 mg/dL (<0.1-1.0); TOTAL PROTEIN 5.1 g/dL (6.4-8.2)
[2017-05-03 08:44] LABS: TROPONIN-I 0.85 ng/mL (<0.06)
[2017-05-03 10:10] LABS: HEP B SURFACE Ab(ANTI-HBS Non Reactive (()); HEPATITIS B SURFACE AG Negative (Negative)
[2017-05-03 11:41] LABS: HEMOGLOBIN 7.7 gm/dL (14.0-18.0)
[2017-05-03 14:44] LABS: PROTIME 14.8 Seconds (9.3-11.4)
[2017-05-03 14:45] LABS: INR 1.5
[2017-05-03 15:10] LABS: ALBUMIN 2.6 g/dL (3.4-5.0); CALCIUM 8.7 mg/dL (8.5-10.1); PHOSPHORUS 2.9 mg/dL (2.5-4.9); POTASSIUM 3.1 mmol/L (3.5-5.1)
[2017-05-03 20:51] LABS: HEMATOCRIT 22.4 % (42.0-52.0); HEMOGLOBIN 7.5 gm/dL (14.0-18.0)
[2017-05-04] VITALS (49 sets, daily range): BP systolic 95–135; BP diastolic 61–84
[2017-05-04 06:30] LABS: HEMATOCRIT 21.4 % (42.0-52.0); HEMOGLOBIN 7.2 gm/dL (14.0-18.0); MCH 27.2 pg (26.0-34.0); MCHC 33.8 g/dL (28.0-37.0); MCV 80.3 fL (80.0-100.0); RBC 2.67 mil/uL (4.50-6.00); RDW 13.7 % (10.5-14.5); WBC 10.2 thou/uL (4.0-11.0)
[2017-05-04 06:38] LABS: % SATURATION 102 % (20-39); IRON 142 ug/dL (65-175); TIBC 139 ug/dL (250-450)
[2017-05-04 06:46] LABS: ALBUMIN 2.6 g/dL (3.4-5.0); CALCIUM 8.9 mg/dL (8.5-10.1); PHOSPHORUS 3.1 mg/dL (2.5-4.9)
[2017-05-04 06:55] LABS: CREATININE 4.4 mg/dL (0.7-1.3)
[2017-05-04 10:08] LABS: INR 1.2; PROTIME 11.8 Seconds (9.3-11.4)
[2017-05-04 19:12] LABS: 25-HYDROXY TOTAL 21.5 ng/mL (30.0-100.0)
[2017-05-05 00:17] VITALS: BP 108/70
[2017-05-05 05:01] VITALS: BP 108/70
[2017-05-05 05:32] LABS: HEMATOCRIT 20.9 % (42.0-52.0); MCH 27.4 pg (26.0-34.0); MCHC 33.6 g/dL (28.0-37.0); MCV 81.5 fL (80.0-100.0); RBC 2.57 mil/uL (4.50-6.00); RDW 13.9 % (10.5-14.5); WBC 9.2 thou/uL (4.0-11.0)
[2017-05-05 05:44] LABS: ALBUMIN 2.5 g/dL (3.4-5.0); CALCIUM 9.1 mg/dL (8.5-10.1); CREATININE 4.8 mg/dL (0.7-1.3); POTASSIUM 3.7 mmol/L (3.5-5.1)
[2017-05-05 07:36] VITALS: BP 106/73
[2017-05-05 11:19] LABS: COMPLEMENT-C3 90 mg/dL (82-167); COMPLEMENT-C4 26 mg/dL (14-44)
[2017-05-05 11:23] VITALS: BP 115/75
[2017-05-05 14:15] LABS: IgA 151 mg/dL (90-386); IgG 399 mg/dL (700-1600); IgM 17 mg/dL (20-172)
[2017-05-05 15:21] VITALS: BP 110/71
[2017-05-05 18:56] VITALS: BP 105/64
[2017-05-06 03:17] VITALS: BP 104/63
[2017-05-06 04:42] LABS: HEMOGLOBIN 6.9 gm/dL (14.0-18.0)
[2017-05-06 04:43] LABS: HEMATOCRIT 20.2 % (42.0-52.0); MCH 27.5 pg (26.0-34.0); MCHC 34.1 g/dL (28.0-37.0); MCV 80.8 fL (80.0-100.0); RBC 2.5 mil/uL (4.50-6.00); RDW 13.5 % (10.5-14.5); WBC 8.2 thou/uL (4.0-11.0)
[2017-05-06 04:47] LABS: ALBUMIN 2.4 g/dL (3.4-5.0); CALCIUM 8.8 mg/dL (8.5-10.1); CREATININE 4.9 mg/dL (0.7-1.3); PHOSPHORUS 4.2 mg/dL (2.5-4.9); POTASSIUM 3.9 mmol/L (3.5-5.1)
[2017-05-06 07:06] VITALS: BP 112/73
[2017-05-06 11:41] VITALS: BP 118/76
[2017-05-06 15:16] VITALS: BP 120/75
[2017-05-06 19:15] VITALS: BP 136/87
[2017-05-07 05:25] LABS: ABSOLUTE NEUTROPHILS 4.8 thou/uL (1.4-8.2); LYMPHOCYTES 9.6 % (24.0-44.0); MCH 27.1 pg (26.0-34.0); MCHC 33.3 g/dL (28.0-37.0); MCV 81.3 fL (80.0-100.0); PLATELET COUNT 50 thou/uL (150-400); POLYS 87.4 % (36.0-66.0); RBC 2.41 mil/uL (4.50-6.00); RDW 13.4 % (10.5-14.5); WBC 5.5 thou/uL (4.0-11.0)
[2017-05-07 05:26] LABS: HEMATOCRIT 19.6 % (42.0-52.0)
[2017-05-07 05:31] LABS: HEMOGLOBIN 6.5 gm/dL (14.0-18.0)
[2017-05-07 05:33] LABS: ALBUMIN 2.4 g/dL (3.4-5.0); CALCIUM 8.5 mg/dL (8.5-10.1); CREATININE 4.7 mg/dL (0.7-1.3); PHOSPHORUS 4.4 mg/dL (2.5-4.9); POTASSIUM 4.3 mmol/L (3.5-5.1)
[2017-05-07 13:07] LABS: ANA INTERPRETATION Negative (Negative)
[2017-05-07 15:10] LABS: KAPPA FREE LIGHT CHAINS 24.5 mg/L (3.3-19.4); KAPPA/LAMBDA RATIO 1.52 (0.26-1.65); LAMBDA FREE LIGHT CHAINS 16.1 mg/L (5.7-26.3)
[2017-05-07 16:45] VITALS: BP 136/81
[2017-05-07 19:02] VITALS: BP 126/82
[2017-05-08 03:16] VITALS: BP 129/84
[2017-05-08 07:05] VITALS: BP 115/73
[2017-05-08 07:10] LABS: GLOBULIN TOTAL 2.8 g/dL (2.2-3.9); M-SPIKE Note: g/dL (Not Observed)
[2017-05-08 07:20] LABS: APTT 29.2 Seconds (24.5-32.8); INR 1.3; PROTIME 13.7 Seconds (9.3-11.4)
[2017-05-08 07:23] LABS: ALBUMIN 2.5 g/dL (3.4-5.0); CALCIUM 8.2 mg/dL (8.5-10.1); CREATININE 3.9 mg/dL (0.7-1.3); PHOSPHORUS 3.9 mg/dL (2.5-4.9); POTASSIUM 3.6 mmol/L (3.5-5.1)
[2017-05-08 09:13] LABS: GLOMERULR BASEM MEMBRN AB 3 units (0-20)
[2017-05-08 11:05] VITALS: BP 130/78
[2017-05-08 12:55] VITALS: BP 120/81; BP 122/78
[2017-05-08 15:24] VITALS: BP 120/81
[2017-05-08 19:01] VITALS: BP 158/93
[2017-05-09 03:19] VITALS: BP 116/72
[2017-05-09 06:52] LABS: HEMATOCRIT 25.5 % (42.0-52.0); MCH 27.5 pg (26.0-34.0); MCHC 33.6 g/dL (28.0-37.0); MCV 81.9 fL (80.0-100.0); RBC 3.11 mil/uL (4.50-6.00); RDW 13.8 % (10.5-14.5)
[2017-05-09 06:57] LABS: HEMOGLOBIN 8.6 gm/dL (14.0-18.0)
[2017-05-09 07:09] LABS: ALBUMIN 2.5 g/dL (3.4-5.0); CALCIUM 8.1 mg/dL (8.5-10.1); CREATININE 3.4 mg/dL (0.7-1.3); PHOSPHORUS 3.7 mg/dL (2.5-4.9); POTASSIUM 3.9 mmol/L (3.5-5.1)
[2017-05-09 07:40] VITALS: BP 142/88
[2017-05-09 11:50] VITALS: BP 136/89
[2017-05-09 15:57] VITALS: BP 153/96
[2017-05-09 19:21] VITALS: BP 140/93
[2017-05-10] MEDS ORDERED: LIDOCAINE VISC100 ML TOP (04:40)
[2017-05-10] MEDS ORDERED: SENNA8.6 MG PO (04:40)
[2017-05-10] MEDS ORDERED: FLEXERIL PO (04:40)
[2017-05-10] MEDS ORDERED: NOVOLOG100 UNIT/1 SUBQ (04:40)
[2017-05-10] MEDS ORDERED: DUONEB 2.5-0.5 M3 ML INH (04:40)
[2017-05-10] MEDS ORDERED: GLUTOSE GEL 1515 G1 PO (04:40)
[2017-05-10] MEDS ORDERED: SEROQUEL 100 M100 M1 PO (04:40)
[2017-05-10] MEDS ORDERED: GLUCAGON HCL1 MG IM (04:40)
[2017-05-10] MEDS ORDERED: SOLU-MEDRO40 MG/1 M1 IV PUSH (04:40)
[2017-05-10] MEDS ORDERED: TYLENOL EXTRA500 MG PO (04:40)
[2017-05-10] MEDS ORDERED: SEROQUEL 25 MG25 M1 PO (04:40)
[2017-05-10] MEDS ORDERED: COREG6.25 MG PO (04:40)
[2017-05-10] MEDS ORDERED: DELZICOL400 M1 PO (04:40)
[2017-05-10] MEDS ORDERED: GLUCOSE4 GM PO (04:40)
[2017-05-10] MEDS ORDERED: ZOFRAN 4 MG ORAL4 MG DISSOLVE (04:40)
[2017-05-10] MEDS ORDERED: DEXTROSE 500.5 GM/M1 IV (04:40)
[2017-05-10] MEDS ORDERED: PROTONIX 20 MG20 MG PO (04:40)
[2017-05-10] MEDS ORDERED: HYDROCODON-ACE1 EAC7 PO (04:41)
[2017-05-10] MEDS ORDERED: SYNTHROID75 MCG PO (04:42)
[2017-05-10] MEDS ORDERED: A THRU Z ADVAN1 EAC1 PO (04:43)
[2017-05-10] MEDS ORDERED: ADULT LOW DOSE81 MG PO (04:43)
[2017-05-10] MEDS ORDERED: MELATONIN5 M1 PO (04:43)
[2017-05-10] MEDS ORDERED: LAMICTAL100 MG PO ×2 (04:44)
[2017-05-10 07:26] LABS: ALBUMIN 2.5 g/dL (3.4-5.0); CALCIUM 7.6 mg/dL (8.5-10.1); CREATININE 2.7 mg/dL (0.7-1.3); PHOSPHORUS 3.6 mg/dL (2.5-4.9); POTASSIUM 3.6 mmol/L (3.5-5.1)
[2017-05-10 07:49] VITALS: BP 132/75
[2017-05-10 11:58] VITALS: BP 134/78
== END 2017-05-10 15:53 | DRG 871 ==
LOC: 4N 19:50 → ICU 20:05 → 4N 20:05 → ICU 23:58 → 3W 05-04 18:05
PROVIDERS: Hospitalist; Internal Medicine; Internal Medicine Gastroenterology; Internal Medicine Hematology & Oncology; Internal Medicine Nephrology; Internal Medicine Pulmonary Disease; Nurse Practitioner
PROC: 02HV33Z Insertion of Infusion Device into Superior Vena Cava, Percutaneous Approach (ICD-10-PCS; principal; 2017-05-01)
PROC: B5181ZA Fluoroscopy of Superior Vena Cava using Low Osmolar Contrast, Guidance (ICD-10-PCS; principal; 2017-05-01)
PROC: B548ZZA Ultrasonography of Superior Vena Cava, Guidance (ICD-10-PCS; principal; 2017-05-01)
PROC: 5A1D70Z Performance of Urinary Filtration, Intermittent, Less than 6 Hours Per Day (ICD-10-PCS; 2017-05-02)
PROC: 0DBL8ZX Excision of Transverse Colon, Via Natural or Artificial Opening Endoscopic, Diagnostic (ICD-10-PCS; 2017-05-03)
PROC: 0DBP8ZX Excision of Rectum, Via Natural or Artificial Opening Endoscopic, Diagnostic (ICD-10-PCS; 2017-05-03)
PROC: 0DB68ZX Excision of Stomach, Via Natural or Artificial Opening Endoscopic, Diagnostic (ICD-10-PCS; 2017-05-03)
PROC: 0DBM8ZX Excision of Descending Colon, Via Natural or Artificial Opening Endoscopic, Diagnostic (ICD-10-PCS; 2017-05-03)
PROC: 0DBN8ZX Excision of Sigmoid Colon, Via Natural or Artificial Opening Endoscopic, Diagnostic (ICD-10-PCS; 2017-05-03)
PROC: 0DB98ZX Excision of Duodenum, Via Natural or Artificial Opening Endoscopic, Diagnostic (ICD-10-PCS; 2017-05-03)
PROC: 30233L1 Transfusion of Nonautologous Fresh Plasma into Peripheral Vein, Percutaneous Approach (ICD-10-PCS; 2017-05-08)
PROC: 30233K1 Transfusion of Nonautologous Frozen Plasma into Peripheral Vein, Percutaneous Approach (ICD-10-PCS; 2017-05-08)
PROC: 30233N1 Transfusion of Nonautologous Red Blood Cells into Peripheral Vein, Percutaneous Approach (ICD-10-PCS; 2017-05-08)
DX: A41.9 Sepsis, unspecified organism (principal); G04.81 Other encephalitis and encephalomyelitis; E43 Unspecified severe protein-calorie malnutrition; G04.90 Encephalitis and encephalomyelitis, unspecified; N17.9 Acute kidney failure, unspecified; I42.9 Cardiomyopathy, unspecified; D68.9 Coagulation defect, unspecified; I10 Essential (primary) hypertension; G89.29 Other chronic pain; M54.5 Low back pain; E78.5 Hyperlipidemia, unspecified; K57.90 Diverticulosis of intestine, part unspecified, without perforation or abscess without bleeding; F31.9 Bipolar disorder, unspecified; M19.90 Unspecified osteoarthritis, unspecified site; N40.0 Benign prostatic hyperplasia without lower urinary tract symptoms; I25.10 Atherosclerotic heart disease of native coronary artery without angina pectoris; I65.29 Occlusion and stenosis of unspecified carotid artery; I70.1 Atherosclerosis of renal artery; D69.6 Thrombocytopenia, unspecified; E83.52 Hypercalcemia; K70.30 Alcoholic cirrhosis of liver without ascites; E11.51 Type 2 diabetes mellitus with diabetic peripheral angiopathy without gangrene; J44.9 Chronic obstructive pulmonary disease, unspecified; E86.0 Dehydration; K21.9 Gastro-esophageal reflux disease without esophagitis; H40.9 Unspecified glaucoma; I95.1 Orthostatic hypotension; E11.42 Type 2 diabetes mellitus with diabetic polyneuropathy; K52.9 Noninfective gastroenteritis and colitis, unspecified; K29.70 Gastritis, unspecified, without bleeding; K44.9 Diaphragmatic hernia without obstruction or gangrene; E56.1 Deficiency of vitamin K; Z88.0 Allergy status to penicillin; M10.9 Gout, unspecified; R25.1 Tremor, unspecified; Z88.8 Allergy status to other drugs, medicaments and biological substances; Z90.49 Acquired absence of other specified parts of digestive tract; Z68.24 Body mass index [BMI] 24.0-24.9, adult; Z88.2 Allergy status to sulfonamides; Z79.82 Long term (current) use of aspirin; Z79.899 Other long term (current) drug therapy; Z85.47 Personal history of malignant neoplasm of testis; Z86.73 Personal history of transient ischemic attack (TIA), and cerebral infarction without residual deficits
CPT/HCPCS: 10078; 10879; 32100; 62110; 62900

== ENCOUNTER 2017-05-10 08:50 | Inpatient (IN) | payer BC ==
[~2017-05-10] VITALS: Ht 175.3 cm; Wt 74.4 kg
--- NOTE | ~2017-05-10 | PLAN ---
[facility] [place] [address] REHAB UNIT PLAN OF CARE Name: ROWAN CHACON Room #: 512-P ADM IN M.R.#: [id number] Admission: 05/10/17 Attend Phys: Shay Clemens MD Discharge: Date of : 62 Report #: [id number] THIS REPORT FOR: //name// CC: Shay Fink DATE OF SERVICE: 05/12/2017 The patient was seen earlier. Temperature 36.6, pulse 99, respirations 19, blood pressure 134/73. Nursing has been keeping a close eye on his buttock area and we are turning him [id number]. Transfers have been max assist. He has not been able to ambulate at all yet. He is very weak and debilitated with his myopathy. Lower body dressing is max assist. He is dependent for clothing. He does have ptiq-go-gyzhcuos comprehensive deficits as well. ID has been involved monitoring regarding his stools. Renal function has been slowly getting better per Nephrology. ASSESSMENT: 1. Critical illness myopathy. 2. Autoimmune encephalitis with chronic immunosuppression. 3. Intractable nausea and vomiting with gastroenteritis. 4. Severe sepsis. 5. Acute renal insufficiency on chronic kidney disease for which he was on dialysis. 6. New cardiomyopathy. 7. History of gout, right great toe. 8. Diabetes mellitus type 2. 9. Severe malnutrition. PLAN: The overall plan of care is based on the preadmission screen, post-admission physician evaluation and information garnered from therapy assessments. 1. Estimated length of stay is going to be on the longer side as he is at a very low level. 2. Medical prognosis is reasonably good. 3. Anticipated interventions include the interdisciplinary acute inpatient rehabilitation program. We will need to have the multiple mainframe consultant physicians follow along with his considerable complexity. 4. Anticipated functional outcomes would hopefully be able to get him back up ambulatory and able to take care of basic needs with mobility, ADLs and improved cognition. 5. Discharge destination would be hoping to get him back home. His is good at giving him some assistance premorbidly. 6. Expected therapy by discipline includes PT and OT and speech 1 hour per day [address] [address] REHAB UNIT PLAN OF CARE Name: ROWAN CHACON Room #: 512-P ADM IN .R.#: [id number] Admission: 05/10/17 Attend Phys: Shay Clemesn MD Discharge: Date of : 62 Report #: [id number] each five days a week throughout the duration of the acute inpatient rehabilitation stay. <ELECTRONICALLY SIGNED> By: Shay Clemens MD 05/14/17 1325 1119 1351 Shay Clemens MD /PMT
--- NOTE | ~2017-05-10 | HC ---
[facility] [place] [address] CONSULTATION Name: ROWAN CHACON Room #: 512-P ADM IN M.R.#: [id number] Admission: 05/10/17 Attend Phys: Shay Clemens MD Discharge: Date of : 62 Report #: [id number] THIS REPORT FOR: //name// CC: Shay Fink DATE OF SERVICE: 05/13/2017 ATTENDING PHYSICIAN: Shay Clemens M.D. WASHHOUSE HAND: Benjamin Dobson, PhD CLINICAL PRESENTATION: The patient is a 56-year-old male admitted to the rehab unit at [facility] for comprehensive inpatient rehabilitation program to improve functional mobility, activities of daily living and self-care and mental status. He carries an admitting diagnosis of critical illness myopathy, autoimmune encephalitis with chronic immunosuppression, intractable nausea and vomiting with gastroenteritis, severe sepsis, acute renal insufficiency for chronic kidney disease requiring dialysis, cardiomyopathy, gout on his right great toe, diabetes mellitus type 2 and severe malnutrition. A complete description of his medical condition, history and medications can be found in his medical record. Neuropsychological consultation was requested to provide assistance in the assessment of cognitive and emotional status and to provide recommendations and services. Prior to this most recent admission, he was living independently with his in their home. The patient has one sister and no children. He is a high school graduate. 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 The patient was seen initially in 2017 following a CVA. He is the brother in law of Dr. Fink. TECHNIQUES UTILIZED: Clinical interview, review of medical records, staff consultation and behavioral observation, family interview -- sister and and then, mini mental status exam 2 standard version and verbal fluency assessment. EXAMINATION FINDINGS: The patient was alert and cooperative with the assessment. He was able to accurately describe events surrounding his initial admission. Patient was angry and irritable during at the time of this assessment. He is reported to have had increased agitation the last 24 hours. In spite of his irritability, he was cooperative. His family note increased agitation within the last 24 hours. Longstanding difficulty with sleep is reported. Additional symptoms include irritability, anxiety, tiredness and fatigue. He does not report subjective depression. Difficulty with word finding and memory is reported by his sister and . The patient lacks insight into aspects of diminished cognitive functioning. [address] [address] CONSULTATION Name: ROWAN CHACON FARHAT Room #: 512-P [facility] IN M.R.#: [id number] Admission: 05/10/17 Attend Phys: Shay Clemens MD Discharge: Date of : 62 Report #: [id number] His performance on the MMSE 2 brief version was extremely low with a raw score of 12/16, T score 25, which is a percentile rank of 1. He was 3/3 for initial registration, 4/5 for orientation to time and 5/[address]. He was 0/3 for immediate recall of 3 items after a brief time delay and distraction. Performance on the MMSE 2 standard version was extremely low with a raw score of 20/30, which is a T score of 19. He was 1/5 for serial sevens, 2/2 for naming, 1/1 for repetition. Auditory comprehension was within normal limits. He could read and follow single command. The patient presents with a severe upper extremity tremor which interferes with his upper extremityi dexterity, He was unable to copy a simple geometric design or write a sentence. Verbal fluency was extremely low. Low scores in category and letter fluency are at least partially affected by his behavior and lack of ability to sustain effort. The extent of his agitation and anxiety are interfering wtih his ability to sustain attention and concentrate on cognitive tasks. The patient appears alert and oriented at this time. He does not appear to be presenting with an acute delirium. This current presentation likely reflects an underlying neurocognitive disorder along with a severe mood disorder that is affecting his overall functioning. DIAGNOSTIC IMPRESSION: Major neurocognitive disorder, due to medical etiology, with intermittent irritability and decreased frustration tolerance -- extent to be determined, likely in the moderate range. Bipolar disorder. Unspecified anxiety disorder. RECOMMENDATIONS: The patient's increased irritability may be related to steroid medication. Increased anxiety is also contributing to variability in cognition. He will benefit from reassurance and support in regard to his continued recovery as medication is gradually lowered. Additionally, severe pain is reported and the degree of discomfort will further affect his sleep and cognition. Medications with sedating features can also be contributing to variability in cognition. The use of relaxation techniques, reassurance and verbal praise and compliments about participation in therapies will assist his overall compliance with treatment. Additionally, allowing him increased control over aspects of his participation during inpatient rehab will assist overall compliance and adjustment. [address] [address] CONSULTATION Name: ROWAN CHACON Room #: 512-P [facility] IN M.R.#: [id number] Admission: 05/10/17 Attend Phys: Shay Clemens MD Discharge: Date of : 62 Report #: [id number] Thank you very much for allowing me to provide the consultation on this patient. <ELECTRONICALLY SIGNED> By: Benjamin Dobson, PhD 05/15/17 1203 1550 1805 Benjamin Dobson, PhD /nt
--- NOTE | ~2017-05-10 | EKG ---
[address] [address] ELECTROCARDIOGRAM REPORT Name: INESROWAN PROCTOR Room #: 512-P ADM IN M.R.#: [id number] Admission: 05/10/17 Attend Phys: Shay Clemens MD Discharge: Date of : 62 Report #: [id number] THIS REPORT FOR: //name// [facility] Test Date: 2017-05-23 Test Time: 06:17:44 Pat Name: ROWAN CHACON Department: Room: 512 P Gender: M Keypuncher: TOYA : 1960 Requested By: Charles Fink Order Number: [id number] MD: Juan Valdez Measurements Intervals [place] Rate: 118 P: 16 MS: 111 QRS: 50 QRSD: 90 T: 195 QT: 382 QTc: 536 Interpretive Statements Sinus tachycardia Abnrm T, probable ischemia, anterolateral lds Prolonged QT interval Compared to ECG 05/02/2017 06:11:54 Possible ischemia now present Prolonged QT interval now present Electronically Signed On 05-23-2017 7:44:04 CDT by Juan Valdez [email or web address] <ELECTRONICALLY SIGNED> By: Juan Valdez MD 05/23/17 0744 6 6 Juan Valdez MD /EPI
--- NOTE | ~2017-05-10 | HC ---
[facility] [place] [address] CONSULTATION Name: ROWAN CHACON Room #: 512-P [facility] IN M.R.#: [id number] Admission: 05/10/17 Attend Phys: Leah Clemens MD Discharge: Date of : 62 Report #: [id number] THIS REPORT FOR: //name// CC: LEAH Fink MD REASON FOR CONSULTATION: Coagulopathy. HISTORY OF PRESENT ILLNESS: The patient is a very pleasant 56-year-old male who had been seen back on about 05/06/2017. At that time, the patient had been admitted with progressive nausea, vomiting, weight loss, was thought to have sepsis. His INR at admission been 2.7, with an APTT of 44.9. There it got to 3.8. After 2 units of FFP, it was down to 1.5 and stayed normal since that time. Please see the dictated note from 05/06/2017. This was just a brief note and document that the patient's coagulopathy has resolved, and I do not believe he needs any additional followup at this time. <ELECTRONICALLY SIGNED> By: Truong Arias MD 05/13/17 1401 0817 0950 Truong Arias MD /nt
--- NOTE | ~2017-05-10 | H ---
[facility] [place] [address] HISTORY AND PHYSICAL Name: ROWAN CHACON Room #: 512-P ADM IN M.R.#: [id number] Admission: 05/10/17 Attend Phys: Shay Clemens MD Discharge: Date of : 62 Report #: [id number] THIS REPORT FOR: //name// CC: Shay Fink DATE OF SERVICE: 05/11/2017 HISTORY AND PHYSICAL/POST ADMISSION PHYSICIAN EVALUATION HISTORY OF PRESENT ILLNESS: The patient is a 56-year-old white male previously known to me with a prior history of autoimmune encephalitis and chronic immunosuppression. His course was complicated by intractable nausea, vomiting, increased weakness and falls. He had a weight loss of 30-40 pounds. He was admitted to [facility] and noted to have severe sepsis with severe renal insufficiency, acute on chronic with a creatinine of over 13. He was in the ICU receiving dialysis. Gastroenterology has been involved. He was noted to have immunosuppression with gastroenteritis without any organism identified. He was diagnosed with gout on treatment and also has thrombocytopenia and has had hematology involved. He has improved as far as his creatinine down to 2.7. He is on mesalamine for colitis. He was noted to have profound weakness with his ongoing ICU stay and he is thought to have critical illness myopathy and has now been admitted for acute in-hospital inpatient rehabilitation. PAST MEDICAL HISTORY: Includes prior history of multiple CVAs, autoimmune cerebritis bipolar with severe paranoia, for which he was placed on large dose Seroquel. He had a prior acute in-hospital inpatient rehabilitation stay back in 04/2016 and did well at that time ambulating 500 feet without a device and was able to return back home with his . MEDICATIONS: Please see the full medication listing. Each of these was individually reconciled and includes herbals, vitamins and supplements. ALLERGIES: HE IS ALLERGIC TO NONSTEROIDALS, PENICILLIN AND SULFA. PAST SURGICAL HISTORY: Includes appendectomy, cholecystectomy, hernia repair, penile prosthesis x 2 and shoulder surgeries bilaterally. FAMILY HISTORY: Noted to be adopted. 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 He is and lives with his in a house. His has helped him some with self-cares. He was using a walker to get around. He has had several falls for the last couple of weeks prior to this admission. [address] [address] HISTORY AND PHYSICAL Name: ROWAN CHACON FARHAT Room #: [address] [place] [address] IN .R.#: [id number] Admission: 05/10/17 Attend Phys: Shay Clemens MD Discharge: Date of : 62 Report #: [id number] REVIEW OF SYSTEMS: No complaints of chest pain or shortness of breath. He denies any current abdominal pain. Complains of overall weakness and debilitation. It sounds like the nausea is improved. PHYSICAL EXAMINATION: GENERAL: A 56-year-old white male, in no obvious distress. VITAL SIGNS: Last recorded temperature 98.4, pulse 111, respirations 18, blood pressure is 149/84. HEENT: The patient is alert, cooperative, chronically ill appearing. Facies were symmetric. CHEST: Decreased breath sounds, otherwise sounded clear. CARDIOVASCULAR: Regular rate and rhythm. ABDOMEN: Bowel sounds positive, nontender. GENITOURINARY AND RECTAL: Deferred. NEUROLOGIC: He has functional range of motion of both upper extremities with strength grade 4- to 3+ out of 5. DTRs are trace to 1. Lower extremities functional range of motion with strength grade 3+/5. DTRs are trace to 1. Transfers have been max assist. He has been unable to ambulate at this point. ASSESSMENT: 1. Critical illness myopathy. 2. Autoimmune encephalitis and chronic immunosuppression. 3. Intractable nausea and vomiting with gastroenteritis. 4. Severe sepsis. 5. Acute renal insufficiency, on chronic kidney disease for which he was on dialysis. 6. New cardiomyopathy. 7. Gout, right great toe. 8. Diabetes mellitus, type 2. 9. Severe malnutrition. PLAN: The patient is admitted for acute in-hospital inpatient rehabilitation. From a postadmission physician evaluation perspective, there are no relevant changes since the preadmission screening. Please see the above review of prior and current medical and functional conditions and comorbidities. Please see the patient's risk of complications. He does have multiple medical comorbidities. The initial plan of care involves the interdisciplinary acute inpatient rehabilitation program with goal of maximizing his functional independence, so he can hopefully return back to his prior living situation. Prognosis is reasonably good with estimated length of stay probably pretty long as he is at a lower level and has multiple considerable comorbidities. Potential barriers would include his multiple medical comorbidities and decreased functional [address] [address] HISTORY AND PHYSICAL Name: ROWAN CHACON Room #: 512-P [facility] IN ..#: [id number] Admission: 05/10/17 Attend Phys: Shay Clemens MD Discharge: Date of : 62 Report #: [id number] status. We will have the multiple sap business objects consultant physicians continue to follow while he is on the acute inpatient rehabilitation lee. <ELECTRONICALLY SIGNED> By: Shay Clemens MD 05/11/17 1409 1030 1335 Shay Clemens MD /[facility]
--- NOTE | ~2017-05-10 | 2DMMODE ---
[facility] [address] [place] [address] 2 D/M-MODE ECHOCARDIOGRAM Name: ROWAN CHACON FARHAT Room #: 512-P [facility] IN M.R.#: [id number] Admission: 05/10/17 Attend Phys: Shay Clemens, Discharge: 05/23/17 Date of : 62 Date of Service: 05/23/17 1041 Report #: [id number] THIS REPORT FOR: //name// APPROVED REPORT Study performed: 05/23/2017 09:35:47 EXAM: Limited 2D, Doppler, and color-flow Echocardiogram Patient Location: Bedside Room #: 512 Status: routine BSA: 1.90 HR: 114 bpm BP: 134/70 mmHg Rhythm: Tachycardia Other Information Study Quality: Adequate Indications Limited follow up echo for chest pain, LV function and cardiomyopathy. 2D Dimensions LVEF(%): 62.55 (>50%) IVSd: 12.87 (7-11mm) LVDd: 47.56 mm PWd: 10.46 (7-11mm) LVDs: 31.50 (25-40mm) Mejia's LVEF: 62.55 % Aortic Valve AoV Peak Rell.: 1.21 m/s AO Peak Gr.: 5.83 mmHg Tricuspid Valve TR Peak Rell.: 2.33 m/s RAP Estimate: 5.00 mmHg TR Peak Gr.: 21.73 mmHg PA Pressure: 27.00 mmHg Left Ventricle The left ventricle is normal size. Mild concentric left ventricular hypertrophy. LVEF is 55%. Right Ventricle The right ventricle is normal size. The right ventricular systolic [facility] [address] [place] [address] 2 D/M-MODE ECHOCARDIOGRAM Name: INESROWAN DOUGHERTY Room #: 512-P [facility] IN .R.#: [id number] Admission: 05/10/17 Attend Phys: Shay Clemens, Discharge: 05/23/17 Date of : 62 Date of Service: 05/23/17 1041 Report #: [id number] function is normal. Aortic Valve The Aortic valve is sclerotic. No aortic regurgitation is present. There is no aortic valvular stenosis. Mitral Valve The mitral valve is normal in structure. Mild to moderate mitral regurgitation. Tricuspid Valve The tricuspid valve is normal in structure. Mild tricuspid regurgitation. Estimated PAP is 25-30mmHg. Great Vessels IVC is normal in size and collapses >50% with inspiration. Pericardium There is no pericardial effusion. <Conclusion> The left ventricle is normal size. Mild concentric left ventricular hypertrophy. LVEF is 55%. The right ventricle is normal size. The Aortic valve is sclerotic. The mitral valve is normal in structure. Mild to moderate mitral regurgitation. The tricuspid valve is normal in structure. Mild tricuspid regurgitation. Estimated PAP is 25-30mmHg. There is no pericardial effusion. <ELECTRONICALLY SIGNED> By: Abhijit Gregory MD 05/23/17 1041 1041 1041 Abhijit Gregory MD /INF
[~2017-05-10 08:50] MED LIST changes: +COREG6.25 MG PO; +DELZICOL400 M1 PO; +DEXTROSE 500.5 GM/M1 IV; +DIFLUCAN100 MG PO; +GLUCAGON HCL1 MG IM; +LIDOCAINE VISC100 ML TOP; +LOPRESSOR25 PO; +PROTONIX 20 MG20 MG PO; +SENNA8.6 MG PO; +SEROQUEL 100 M100 M1 PO; +SOLU-MEDRO40 MG/1 M1 IV PUSH; +SYNTHROID75 MCG PO; +TRANSDERM-SCOP1 EACH TOP; +TYLENOL EXTRA500 MG PO; +ZOFRAN 4 MG ORAL4 MG DISSOLVE
[2017-05-10 16:00] VITALS: BP 144/85
[2017-05-10 20:32] VITALS: BP 149/84
[2017-05-11 06:40] LABS: HEMATOCRIT 24.6 % (42.0-52.0); HEMOGLOBIN 8.2 gm/dL (14.0-18.0); MCH 27.7 pg (26.0-34.0); MCHC 33.4 g/dL (28.0-37.0); MCV 83.1 fL (80.0-100.0); RBC 2.96 mil/uL (4.50-6.00); RDW 14.1 % (10.5-14.5); WBC 11.6 thou/uL (4.0-11.0)
[2017-05-11 06:51] LABS: ALBUMIN 2.6 g/dL (3.4-5.0); CALCIUM 7.4 mg/dL (8.5-10.1); CREATININE 2.6 mg/dL (0.7-1.3); PHOSPHORUS 3.8 mg/dL (2.5-4.9); POTASSIUM 4.5 mmol/L (3.5-5.1)
[2017-05-11 08:25] VITALS: BP 129/82
[2017-05-11 18:05] VITALS: BP 113/75
[2017-05-11 20:11] VITALS: BP 118/72
[2017-05-12 07:55] VITALS: BP 134/73
[2017-05-12 21:45] VITALS: BP 142/79
[2017-05-13 05:55] LABS: ALBUMIN 2.6 g/dL (3.4-5.0); CALCIUM 6.7 mg/dL (8.5-10.1); CREATININE 1.9 mg/dL (0.7-1.3); PHOSPHORUS 4.3 mg/dL (2.5-4.9); POTASSIUM 4.2 mmol/L (3.5-5.1)
[2017-05-13 08:30] VITALS: BP 135/78
[2017-05-13 20:25] VITALS: BP 124/71
[2017-05-14 05:38] LABS: ALBUMIN 2.6 g/dL (3.4-5.0); CALCIUM 6.3 mg/dL (8.5-10.1); CREATININE 1.6 mg/dL (0.7-1.3); PHOSPHORUS 4.4 mg/dL (2.5-4.9); POTASSIUM 4.7 mmol/L (3.5-5.1)
[2017-05-14 08:30] VITALS: BP 131/84
[2017-05-14 20:10] VITALS: BP 117/76
[2017-05-15 08:30] VITALS: BP 123/76
[2017-05-15 19:45] VITALS: BP 118/63
[2017-05-16 05:30] LABS: ALBUMIN 2.5 g/dL (3.4-5.0); CALCIUM 6.4 mg/dL (8.5-10.1); CREATININE 1.5 mg/dL (0.7-1.3); PHOSPHORUS 3.2 mg/dL (2.5-4.9); POTASSIUM 4.4 mmol/L (3.5-5.1)
[2017-05-16 10:00] VITALS: BP 95/63
[2017-05-16 10:17] VITALS: BP 94/63
[2017-05-16 19:54] VITALS: BP 116/77
[2017-05-17 05:34] LABS: HEMATOCRIT 25.8 % (42.0-52.0); HEMOGLOBIN 8.4 gm/dL (14.0-18.0); MCH 28.8 pg (26.0-34.0); MCHC 32.4 g/dL (28.0-37.0); MCV 88.9 fL (80.0-100.0); RBC 2.9 mil/uL (4.50-6.00); RDW 15.1 % (10.5-14.5); WBC 11.2 thou/uL (4.0-11.0)
[2017-05-17 07:17] VITALS: BP 125/74
[2017-05-17 10:43] LABS: URINE BILIRUBIN NEGATIVE (Negative); URINE BLOOD NEGATIVE (Negative); URINE CLARITY CLEAR; URINE COLOR YELLOW; URINE GLUCOSE-RANDOM* NEGATIVE (Negative); URINE KETONES NEGATIVE (Negative); URINE LEUKOCYTES-REFLEX NEGATIVE (Negative); URINE NITRITE-REFLEX NEGATIVE (Negative); URINE PROTEIN (DIPSTICK) NEGATIVE (Negative); URINE UROBILINOGEN 0.2 E.U./dl (0.2-1.0)
[2017-05-17 20:10] VITALS: BP 125/80
[2017-05-18 07:30] VITALS: BP 101/69
[2017-05-18 07:30] LABS: ALBUMIN 2.5 g/dL (3.4-5.0); CALCIUM 6.2 mg/dL (8.5-10.1); CREATININE 1.4 mg/dL (0.7-1.3); PHOSPHORUS 3.1 mg/dL (2.5-4.9); POTASSIUM 4.7 mmol/L (3.5-5.1)
[2017-05-18 21:26] VITALS: BP 138/87
[2017-05-19 10:50] VITALS: BP 133/70
[2017-05-19 20:05] VITALS: BP 135/76
[2017-05-20 09:45] VITALS: BP 113/73
[2017-05-20 20:21] VITALS: BP 131/79
[2017-05-21 08:00] VITALS: BP 137/73
[2017-05-21 22:25] VITALS: BP 131/74
[2017-05-22 07:40] VITALS: BP 137/69
[2017-05-22 08:00] VITALS: BP 118/71
[2017-05-22 19:50] VITALS: BP 137/69
[2017-05-23 06:19] LABS: BE(vivo) 0.3 mmol/L (-2 to +3); HCO3 23.9 mmol/L (22.0-26.0); PCO2 34.4 mmHg (35.0-45.0); PO2 64.8 mmHg (80.0-100.0); sO2 93.9 % (92.0-98.0)
[2017-05-23 06:25] VITALS: BP 134/70
[2017-05-23 06:56] LABS: HEMATOCRIT 25.2 % (42.0-52.0); HEMOGLOBIN 8.3 gm/dL (14.0-18.0); MCH 30.8 pg (26.0-34.0); MCHC 33.1 g/dL (28.0-37.0); MCV 92.8 fL (80.0-100.0); RBC 2.71 mil/uL (4.50-6.00); RDW 26.7 % (10.5-14.5)
[2017-05-23 07:01] LABS: ANION GAP 9 mmol/L (7-16); BUN 45 mg/dL (7-18); CALCIUM 6.3 mg/dL (8.5-10.1); CHLORIDE 106 mmol/L (98-107); CO2 27 mmol/L (21-32); GLUCOSE 135 mg/dL (74-106); POTASSIUM 4.6 mmol/L (3.5-5.1); SODIUM 142 mmol/L (136-145)
[2017-05-23 07:10] LABS: TROPONIN-I < 0.04 ng/mL (<0.06)
[2017-05-23] MEDS ORDERED: LEVAQUIN 250 M250 MG PO (08:44)
[2017-05-23] MEDS ORDERED: HYOSCYAMINE0.125 M1 PO (08:44)
[2017-05-23] MEDS ORDERED: CARBIDOPA-LEVO1 EA11 PO ×2 (08:45→08:46)
[2017-05-23] MEDS ORDERED: FLORANEX GRANU1 EACH PO (08:46)
[2017-05-23] MEDS ORDERED: ZINC SULFATE 2220 M1 PO (08:46)
[2017-05-23] MEDS ORDERED: PREDNISONE 10 M10 MG PO (08:47)
[2017-05-23] MEDS ORDERED: ACEROLA C500 MG PO (08:48)
[2017-05-23] MEDS ORDERED: NYSTATIN-TRIAMC15 GM TOP (08:48)
[2017-05-23] MEDS ORDERED: TYLENOL EXTRA500 MG PO (08:49)
[2017-05-23] MEDS ORDERED: SEROQUEL 25 MG25 M1 PO (08:49)
[2017-05-23] MEDS ORDERED: DUONEB 2.5-0.5 M3 ML INH (08:49)
[2017-05-23] MEDS ORDERED: QUETIAPINE FUM300 MG PO (08:50)
[2017-05-23] MEDS ORDERED: DEXTROSE 500.5 GM/M1 IV PUSH (08:50)
[2017-05-23] MEDS ORDERED: GLUCOSE4 GM PO (08:51)
[2017-05-23] MEDS ORDERED: GLUTOSE GEL 1515 G1 PO (08:51)
[2017-05-23] MEDS ORDERED: NOVOLOG100 UNIT/1 SUBQ (08:52)
== END 2017-05-23 10:30 | disposition short-term general hospital (02) | DRG 91 ==
PROVIDERS: Hospitalist; Internal Medicine; Internal Medicine Nephrology; Nurse Practitioner; Physical Medicine & Rehabilitation
DX: G72.81 Critical illness myopathy (principal); G04.81 Other encephalitis and encephalomyelitis; A41.9 Sepsis, unspecified organism; R65.20 Severe sepsis without septic shock; E43 Unspecified severe protein-calorie malnutrition; N17.0 Acute kidney failure with tubular necrosis; I42.9 Cardiomyopathy, unspecified; L03.115 Cellulitis of right lower limb; E87.2 Acidosis; K52.9 Noninfective gastroenteritis and colitis, unspecified; N18.9 Chronic kidney disease, unspecified; M10.9 Gout, unspecified; E11.22 Type 2 diabetes mellitus with diabetic chronic kidney disease; Z68.24 Body mass index [BMI] 24.0-24.9, adult; F01.50 Vascular dementia, unspecified severity, without behavioral disturbance, psychotic disturbance, mood disturbance, and anxiety; F31.9 Bipolar disorder, unspecified; F41.9 Anxiety disorder, unspecified; D69.6 Thrombocytopenia, unspecified; L89.152 Pressure ulcer of sacral region, stage 2; D64.9 Anemia, unspecified; K29.70 Gastritis, unspecified, without bleeding; N41.9 Inflammatory disease of prostate, unspecified; I95.9 Hypotension, unspecified; R53.81 Other malaise; I12.9 Hypertensive chronic kidney disease with stage 1 through stage 4 chronic kidney disease, or unspecified chronic kidney disease; E78.5 Hyperlipidemia, unspecified; K57.90 Diverticulosis of intestine, part unspecified, without perforation or abscess without bleeding; N48.6 Induration penis plastica; M19.90 Unspecified osteoarthritis, unspecified site; R25.1 Tremor, unspecified; K74.60 Unspecified cirrhosis of liver; G47.00 Insomnia, unspecified; I25.10 Atherosclerotic heart disease of native coronary artery without angina pectoris; I73.9 Peripheral vascular disease, unspecified; E83.52 Hypercalcemia; R11.2 Nausea with vomiting, unspecified; Z86.73 Personal history of transient ischemic attack (TIA), and cerebral infarction without residual deficits; Z88.0 Allergy status to penicillin; Z88.2 Allergy status to sulfonamides; Z88.8 Allergy status to other drugs, medicaments and biological substances; Z90.49 Acquired absence of other specified parts of digestive tract; Z85.47 Personal history of malignant neoplasm of testis
CPT/HCPCS: 10112

== ENCOUNTER 2017-05-23 10:58 | Inpatient (IN) | payer BC ==
[~2017-05-23] VITALS: Ht 175.3 cm; Wt 81.2 kg
--- NOTE | ~2017-05-23 | D ---
[facility] [place] [address] DISCHARGE SUMMARY Name: ROWAN CHACON Room #: 211-P ADM IN M.R.#: [id number] Admission: 05/23/17 Attend Phys: Charles Fink MD Discharge: Date of : 62 Report #: [id number] THIS REPORT FOR: //name// CC: Elena Yao MD [facility] Charles Fink DATE OF SERVICE: 05/25/2017 DATE OF DISCHARGE: 05/25/2017. HOSPITAL COURSE: The patient is a 56-year-old white male who was admitted after a suspicious episode of substernal chest pain that happened while he was on the rehab unit after an admission immediately prior to his rehabilitation stay that included new diagnosis of cardiomyopathy of unknown origin, with an ejection fraction of 25%. He was admitted in the acute care side of the hospital and had an extensive workup that included the followin. CT angiogram of the chest to rule out pulmonary embolism; however, a new right-sided right lower lobe infiltrate was noted, not originally seen on the chest x-ray. The chest pain did not recur and the patient was kept on heparin drip during his admission. 2. EKG showed suspicious changes, consistent with an anterior and lateral ischemia. Cardiology consulted, recommended and performed cardiac catheterization on the date of discharge. The full report will be in the chart, but I have reviewed the findings with Dr. Maximilian, and his severity of coronary artery disease is mild in general and not consequence enough to be responsible for EKG changes. Also, during this hospital stay, the patient was found to have a magnesium level of 0.8, which is markedly depressed. He was started on intravenous magnesium replacement therapy and as of this dictation, his magnesium level has only gone up to 1.3 so far, with a target of at least 1.8 and probably not higher than 2.5. The cause of this hypomagnesemia is most likely due to a combination of factors, including concurrent use of diuretics and he has underlying malnutrition responsible in part for his first admission. He will also be placed on oral therapy for the next month to try and get him caught up. MEDICATIONS: At the time of discharge, his medication regimen is as follows: Floranex 1 packet by mouth with meals; albuterol/ipratropium inhalation treatments 3 mL 3 times a day as needed for wheezing; vitamin C 500 mg by mouth [address] [address] DISCHARGE SUMMARY Name: ROWAN CHACON Room #: 211-P [facility] IN [facility].#: [id number] Admission: 05/23/17 Attend Phys: Charles Fink MD Discharge: Date of : 62 Report #: [id number] daily for wound healing x 1 month; aspirin enteric-coated 81 mg p.o. daily; Azactam 1 gram IV q. 8 hours; Sinemet 10/100 one tablet by mouth at 06:00, 09:00, noon, 15:00 and 18:00 hours each day; Coreg 6.25 mg b.i.d.; Flexeril 10 mg p.o. at bedtime; hypoglycemia protocol; hydrocodone 5/325 two tablets by mouth every 4 hours as needed for pain; hyoscyamine 0.125 mg sublingual q. 4 hours p.r.n. abdominal cramps; Lantus 20 units subq nightly; sliding scale of Humalog, low intensity and Lamictal 100 mg p.o. at bedtime and 50 mg p.o. q.a.m. He is on 1 mg lorazepam doses q. 8 hours x 3 more doses. Melatonin 5 mg at bedtime p.r.n. insomnia, mesalamine 800 mg 3 times daily, multivitamin with iron daily, nystatin cream applied to balanitis b.i.d. x 2 weeks, pantoprazole 40 mg by mouth daily, prednisone 15 mg p.o. b.i.d. on a tapering dose, quetiapine 100 mg p.o. at bedtime and 50 mg p.r.n. q. 4 hours for anxiety or insomnia, scopolamine HBI patch 1 patch every 3 days for chronic dizziness, Senokot 1 tablet by mouth daily as needed for constipation, Synthroid 75 mcg by mouth daily, vancomycin 1000 mg IV q. 12 hours and zinc sulfate 220 mg by mouth daily for the next month. DISCHARGE DIAGNOSES: As follows: 1. Aspiration pneumonia. 2. Oropharyngeal dysphagia. 3. Non-cardiac chest pain. 4. Type 2 diabetes mellitus. 5. Hyperlipidemia. 6. Hypertension. 7. Severe malnutrition. 8. Severe hypomagnesemia. 9. Gastroesophageal reflux disease. 10. History of gout. 11. History of sigmoidectomy, appendectomy and cholecystectomy. 12. HISTORY OF ALLERGIES TO PENICILLIN AND NONSTEROIDAL ANTI-INFLAMMATORY DRUGS. 13. Cirrhosis of the liver. 14. Mild emphysema. 15. Bipolar affective disorder. 16. Situational anxiety. 17. Recurrent prostatitis. 18. History of autoimmune cerebritis. 19. Sacral decubitus ulcer, stage 1. 20. History of left renal artery stent. At the time of this dictation, the pending plan is to have the patient return to the rehab unit from the ones he came and continue his rehabilitation program. It is quite noteworthy that he originally arrived a couple of weeks ago for his first acute care stay with a weight of around 140 pounds and as of yesterday, he is now up to 183 pounds. [facility] [place] [address] DISCHARGE SUMMARY Name: ROWAN CHACON Room #: 211-P ADM IN M.R.#: [id number] Admission: 05/23/17 Attend Phys: Charles Fink MD Discharge: Date of : 62 Report #: [id number] Please note the patient continues to have an event monitor in his chest and will be seeing the Cardiology team in followup after he is released from the rehab program as well. The patient was recently diagnosed with autoimmune colitis, not otherwise specified, and placed on mesalamine. He has tolerated and benefited from this therapy exceedingly well and from a nutrition and GI standpoint, has shown a dramatic unremarkable recovery. I will ask him to see Dr. Lopez in followup after he is released from the hospital as well. <ELECTRONICALLY SIGNED> By: Charles Fink MD 05/25/17 1729 0953 1110 Charles Fink MD /nt
--- NOTE | ~2017-05-23 | EKG ---
[address] [address] ELECTROCARDIOGRAM REPORT Name: ROWAN CHACON Room #: 211-P ADM IN M.R.#: [id number] Admission: 05/23/17 Attend Phys: Charles Fink MD Discharge: Date of : 62 Report #: [id number] THIS REPORT FOR: //name// [facility] Test Date: 2017-05-24 Test Time: 06:14:52 Pat Name: ROWAN CHACON Department: Room: 211 P Gender: M Slat Grader: GR : 1960 Requested By: Charles Fink Order Number: [id number] MD: Juan Valdez Measurements Intervals [place] Rate: 107 P: 47 MS: 164 QRS: 31 QRSD: 97 T: 168 QT: 374 QTc: 499 Interpretive Statements Sinus tachycardia Probable left atrial enlargement Abnrm T, probable ischemia, anterolateral lds Compared to ECG 05/23/2017 11:51:39 Prolonged QT interval no longer present Possible ischemia still present Electronically Signed On 05-24-2017 8:13:26 CDT by Juan Valdez [email or web address] <ELECTRONICALLY SIGNED> By: Juan Valdez MD 05/24/17 0813 3 3 Juan Valdez MD /EPI
--- NOTE | ~2017-05-23 | H ---
[facility] [place] [address] HISTORY AND PHYSICAL Name: ROWAN CHACON Room #: 211-P ADM IN M.R.#: [id number] Admission: 05/23/17 Attend Phys: Charles Fink MD Discharge: Date of : 62 Report #: [id number] THIS REPORT FOR: //name// CC: Elena Yao MD [facility] Charles Voss MD DATE OF SERVICE: 05/23/2017 CHIEF COMPLAINT: Chest pain. HISTORY OF PRESENT ILLNESS: The patient is a 56-year-old male who was recovering in the rehab unit after prolonged hospitalization for multiple medical problems, outlined elsewhere in the medical record of this hospital. He developed an episode of chest pain on this morning and it lasted approximately an hour or less. It was resolved with a single sublingual nitroglycerin. During the episode of chest pain, the patient became diaphoretic, had severe pressure in his chest and was short of breath. EKG was performed that showed ischemic changes across the precordium. He is being admitted for further evaluation and treatment. Please note that he did have some labs prior to transfer and these include initial blood gas, which had a normal pH of 7.46 with hypoxia, low pCO2 and increased alveolar arterial oxygen gradient and increased lactic acid levels. PAST MEDICAL HISTORY: Includes numerous problems including autoimmune encephalitis; chronic hypertension; type 2 diabetes mellitus; chronic gout; chronic low back pain; hyperlipidemia; diverticulosis; prior sigmoid colectomy for diverticulosis and diverticulitis; cellulitis of the right lower extremity in the past; bipolar affective disorder; Peyronie's disease; left carotid occlusive disease, status post left carotid endarterectomy; tremor due to prolonged antipsychotic medications; multiple small strokes versus encephalitis in the past; cirrhosis due to BAXTER versus prior history of alcohol use and he had testicular cancer great many years ago and has had no recurrences in the lead in over 20 years. ALLERGIES: HE IS ALLERGIC TO NONSTEROIDAL ANTI-INFLAMMATORY DRUGS; THEY CAUSED THROAT SWELLING AND RENAL INSUFFICIENCY. PENICILLIN CAUSES ANAPHYLAXIS AND SULFA MEDICATIONS CAUSED SEVERE GI UPSET. PAST SURGICAL HISTORY: Also include appendectomy, cholecystectomy, hernia repair, penile prosthesis x 2 and shoulder surgeries bilaterally for rotator cuff injuries. [facility] [address] [place] [address] HISTORY AND PHYSICAL Name: ROWAN CHACON Room #: [facility] IN ..#: [id number] Admission: 05/23/17 Attend Phys: Charles Fink MD Discharge: Date of : 62 Report #: [id number] FAMILY HISTORY: He is adopted. 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 He is to Nena Fink. He has no children. He is an ex-smoker and has not consumed alcohol in at least the last 5 years. REVIEW OF SYSTEMS: Reveals that his recent problems with dysuria seem to have greatly diminished (his urinalysis was negative, but he had a very tender prostate on exam and was felt to be suffering with prostatitis). The rest of his systems review is otherwise essentially negative. PHYSICAL EXAMINATION: VITAL SIGNS: The patient had a heart rate of approximately 120 with adequate blood pressure and blood gas as described above. His oxygen saturation was well above 90% with 2 liters of oxygen per nasal cannula per minute. GENERAL: The patient is a thin, middle-aged white male, who looks older than his stated age of 56 years. HEENT: Extraocular muscles are intact. The oropharynx is moist and pink, without lesions or exudates. Sinuses are nontender. Hearing is grossly normal. NECK EXAMINATION: There is no adenopathy, thyromegaly or mass. He has some jugular venous distention noted at 45-degree angle today. His range of motion is fairly good, but slow. LUNGS: Coarse bilaterally, especially in the bases, right greater than left with wheezing. CARDIOVASCULAR: He has tachycardia, apparently sinus with occasional extrasystole. ABDOMEN: Soft. Positive bowel sounds. No visceromegaly or masses. Prior surgical scars as noted above. EXTREMITIES: Without cyanosis, clubbing or significant edema. Peripheral pulses easily palpated in all 4 distal extremities. Wiliam sign is negative bilaterally. SKIN EXAMINATION: There is mild evidence of breakdown in the sacral area that is otherwise benign. It is noteworthy he just had his central line removed in the last week from the right side of his neck. LABORATORY DATA: Chest x-ray is reported as no acute process. Venous lactic acid level was 2.8. The last glucose test in the rehab unit was 137. The basic metabolic panel showed sodium of 142, potassium 4.6, chloride 106, bicarbonate 27, anion gap is 9, BUN of 45, creatinine 1.0, glucose of 135 and calcium of 6.3. Please note the patient has significant hypoalbuminemia from malnutrition (estimated GFR today is 78). Troponin was less than 0.04 at 06:40 this morning. CBC without differential shows white count of 9000, hemoglobin of 8.3 and hematocrit 25.2; these are stable, but low. Platelet count is 103,000; this is stable, but low. Red cell indices are essentially normal, with the exception of an elevated RDW of 26.7. Arterial blood gas at 06:18 this morning showed a pH of 7.46, pCO2 of 34.4, pO2 of 64.8, arterial lactic acid level of 3.65 with an [facility] [address] [place] [address] HISTORY AND PHYSICAL Name: ROWAN CHACON Room #: [facility]-P ADM IN M.R.#: [id number] Admission: 05/23/17 Attend Phys: Charles Fink MD Discharge: Date of : 62 Report #: [id number] upper limit of normal at 2.0, FIO2 was 21% on room air and the alveolar arterial oxygen gradient is in the range of 43. EKG from this morning shows a sinus tachycardia with rate of 118 beats per minute, abnormal T waves across the precordium, probable ischemia in the anterolateral leads, prolonged QT interval noted. Compared to the EKG from 05/02/2017 at this facility, possible ischemia is not noted and prolonged QT interval is not noted. The patient had an echocardiogram, courtesy of the Cardiology consult, that was done prior to his transfer. This shows the left ventricle is normal in size. There is mild left ventricular hypertrophy with a left ventricular ejection fraction that has increased from 25% or 30% previously up to 55%. Right ventricle is normal in size. The aortic valve is sclerotic. The mitral valve is normal. [id number] mitral regurgitation is noted. Tricuspid valve is normal, mild tricuspid regurg with an estimated pulmonary artery pressure of 25-30 mmHg and no pericardial effusion noted. ASSESSMENT AND PLAN: 1. Chest pain with EKG changes suspicious for acute coronary syndrome. The patient will be anticoagulated with IV heparin. He has already been given aspirin today. Blood pressure control is adequate. I have spoken with Dr. Yao regarding further evaluation of suspected coronary artery disease. He will need an alveolar arterial oxygen gradient. His alveolar arterial oxygen gradient is elevated and this suggests possible pulmonary embolism. The patient is now pain free. So, we will get the CTA of his chest first and plain results of that. We will plan tentatively for cardiac catheterization, per my conversation with Dr. Yao, tomorrow. 2. Acute renal failure/chronic kidney disease stage 3 - the patient seems to be doing rather well after his initial acute kidney injury a couple of weeks ago. I think his renal function is reasonably good enough for him to have the angiogram today and the coronary angiogram tomorrow. We will hydrate him carefully. It is a great relief that his ejection fraction is so much improved from his original presentation. 3. Type 2 diabetes mellitus, not on metformin - I will monitor and treat accordingly. 4. Autoimmune cerebritis - the patient has been off of CellCept for a couple of weeks now and is on a tapering dose of steroids. We will continue to taper, albeit slowly. 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 5. Hypertension. Continue current therapy and adjust based on current workup findings. 6. Balanitis due to prolonged antibiotic therapy. Continue topical nystatin cream. 7. Prostatitis, recurrent - continue Levaquin. Note, I do have concern for his prolonged QT interval and may need to make adjustments in some of his therapies so as to minimize this problem. 8. Cirrhosis, mild. We will check a protime also. 9. Colitis, apparently autoimmune - responding appropriately to mesalamine [address] [address] HISTORY AND PHYSICAL Name: ROWAN CHACON Room #: 211-P ADM IN M.R.#: [id number] Admission: 05/23/17 Attend Phys: Charles Fink MD Discharge: Date of : 62 Report #: [id number] therapy. 10. Severe malnutrition, resolving with nutritional improvement and treatment of underlying disorders. 11. Hyperlipidemia. 12. Peyronie disease. 13. Chronic obstructive pulmonary disease, ex-smoker. 14. Carotid occlusive disease. 15. History of prior sigmoidectomy. 16. History of appendectomy and cholecystectomy. The patient was on the rehab unit and performing very well, with significant improvements there since his admission. It is my plan to try and return him to the rehab unit to complete his stay there subsequent to the current workup. <ELECTRONICALLY SIGNED> By: Charles Fink MD 05/23/17 1240 [id number] Charles Fink MD /nt
--- NOTE | ~2017-05-23 | CATHLAB ---
[facility] [place] [address] INVASIVE PROCEDURE REPORT Name: ROWAN CHACON Room #: 211-P [facility] IN ..#: [id number] Admission: 05/23/17 Attend Phys: Charles Fink MD Discharge: Date of : 62 Date of Service: 05/25/17 1737 Report #: [id number] THIS REPORT FOR: //name// APPROVED REPORT Study performed: 05/25/2017 07:13:45 Patient Details Patient Status: In-Patient Room #: The patient is a 56 year-old male Event Personnel Vahe Yao Music Store Manager, Sabas Montiel RN Procedures Performed Left Heart Cath w/or w/o Coronaries [id number] [facility] Renal Bilateral Peripheral Angiography [id number] CVRENALBIL Indication Abnormal ECG Procedure Narrative The Right Groin^ was infiltrated with 1% Lidocaine subcutaneous anesthesia. A PINNACLE 6FR Sheath #[id number] sheath was inserted into the RFA^. Coronary angiography was performed using coronary diagnostic catheters. The right coronary system was accessed and visualized with a JR4 catheter. The left coronary system was accessed and visualized with a 6FR JL 4.5 #[id number] catheter. The left ventricle was accessed and visualized with a PIGTAIL catheter. Left ventriculogram was performed in 30 degree projection. An aortogram of the abdominal aorta was performed. Closure device was deployed with a 6 Fr MYNXGRIP 6/7F #[id number]. The patient tolerated the procedure well and there were no complications associated with the procedure. Intraoperative Conscious Sedation Sedation start time: 8.48 Case end Time: 9.00 Versed 2 mg Fluoro Time: 222.00 minutes Dose: 524 mGy Contrast Type and Amount: Omnipaque 135 ml Hemodynamics [facility] [address] [address] INVASIVE PROCEDURE REPORT Name: ROWAN CHACON FARHAT Room #: 211-P [facility] IN ..#: [id number] Admission: 05/23/17 Attend Phys: Charles Fink MD Discharge: Date of : 62 Date of Service: 05/25/17 1737 Report #: [id number] The aortic pressure is 155/71 mmHg with a mean of 66 mmHg. The left ventricular pressure is 166/14 mmHg with a mean of mmHg. The left ventricular end diastolic pressure is 25 mmHg. Conclusion #1 normal left ventricular size and systolic function EF 55% #2 abdominal aorta is intact with mild ectasia no aneurysm #3 left main with mild disease giving rise to LAD and circumflex #4 LAD which extends to the apex is mild diffuse disease no occlusive disease proximal eccentric lesion of 50% is noted overlapping vessels make this difficult to fully evaluate #5 circumflex OM system 50% proximal lesion in proximal circumflex after OM takeoff. Diffuse disease distally large first OM #6 dominant right coronary artery with 40-50% proximal disease mild disease distal dominant vessel #7 left renal artery previously stented has 40% in-stent restenosis in the mid stent brisk flow noted #8 right renal artery has an eccentric proximal lesion of 40-50% will follow noninvasively Recommendations and plan continue aggressive risk factor modification. We'll evaluate noninvasively renal Doppler follow-up and looking for ischemia anterior wall in follow-up. No lifting for 48 hours no line tub Jacuzzi or Martin for a week. Okay to transfer back to rehabilitation unit. <ELECTRONICALLY SIGNED> By: Vhae Yao MD, FACC 05/25/17 1737 173 [id number] Vahe Yao MD, FACC /INF
[~2017-05-23 10:58] MED LIST changes: +ACEROLA C500 MG PO; +CARBIDOPA-LEVO1 EA11 PO; +DEXTROSE 500.5 GM/M1 IV PUSH; +FLORANEX GRANU1 EACH PO; +HYOSCYAMINE0.125 M1 PO; +LEVAQUIN 250 M250 MG PO; +NYSTATIN-TRIAMC15 GM TOP; +QUETIAPINE FUM300 MG PO; +ZINC SULFATE 2220 M1 PO
[2017-05-23 11:58] LABS: HEMATOCRIT 27.9 % (42.0-52.0); HEMOGLOBIN 9.1 gm/dL (14.0-18.0); MCH 30.5 pg (26.0-34.0); MCHC 32.6 g/dL (28.0-37.0); MCV 93.5 fL (80.0-100.0); RBC 2.98 mil/uL (4.50-6.00); RDW 26.8 % (10.5-14.5); WBC 13.6 thou/uL (4.0-11.0)
[2017-05-23 12:16] LABS: PROTIME 10.4 Seconds (9.3-11.4)
[2017-05-23 15:49] VITALS: BP 139/85
[2017-05-23 20:50] VITALS: BP 141/84
[2017-05-24 00:38] VITALS: BP 143/73
[2017-05-24 03:50] LABS: HEMOGLOBIN 8.4 gm/dL (14.0-18.0); MCH 31.4 pg (26.0-34.0); MCHC 33.6 g/dL (28.0-37.0); MCV 93.4 fL (80.0-100.0); RBC 2.67 mil/uL (4.50-6.00); RDW 27.7 % (10.5-14.5); WBC 8.8 thou/uL (4.0-11.0)
[2017-05-24 04:55] VITALS: BP 127/61
[2017-05-24 05:40] LABS: ALBUMIN 2.6 g/dL (3.4-5.0); CALCIUM 6.2 mg/dL (8.5-10.1); CREATININE 1.1 mg/dL (0.7-1.3); DIRECT BILIRUBIN 0.2 mg/dL (<0.1-0.3); POTASSIUM 4.6 mmol/L (3.5-5.1); TOTAL BILIRUBIN 0.3 mg/dL (<0.1-1.0); TOTAL PROTEIN 4.9 g/dL (6.4-8.2)
[2017-05-24 05:56] LABS: MAGNESIUM 0.8 mg/dL (1.8-2.4)
[2017-05-24 08:36] VITALS: BP 126/74
[2017-05-24 12:04] VITALS: BP 123/65
[2017-05-24 16:54] VITALS: BP 130/74
[2017-05-24 19:10] VITALS: BP 136/75
[2017-05-25 03:10] VITALS: BP 139/80
[2017-05-25 07:14] VITALS: BP 168/113
[2017-05-25 12:00] VITALS: BP 149/85
[2017-05-25 13:00] VITALS: BP 128/76
[2017-05-25 16:00] VITALS: BP 126/69
[2017-05-25] MEDS ORDERED: ATROPINE S0.1 MG/1 M IV PUSH (17:31)
[2017-05-25] MEDS ORDERED: NITRO-BID1 GM TOP (17:31)
[2017-05-25] MEDS ORDERED: ATIVAN1 MG PO (17:32)
[2017-05-25 20:59] VITALS: BP 159/86
== END 2017-05-25 22:45 | DRG 177 ==
LOC: 2N 10:58
PROVIDERS: Internal Medicine
PROC: B4101ZZ Fluoroscopy of Abdominal Aorta using Low Osmolar Contrast (ICD-10-PCS; principal; 2017-05-25)
PROC: B4181ZZ Fluoroscopy of Bilateral Renal Arteries using Low Osmolar Contrast (ICD-10-PCS; principal; 2017-05-25)
PROC: B2111ZZ Fluoroscopy of Multiple Coronary Arteries using Low Osmolar Contrast (ICD-10-PCS; principal; 2017-05-25)
PROC: 4A023N7 Measurement of Cardiac Sampling and Pressure, Left Heart, Percutaneous Approach (ICD-10-PCS; principal; 2017-05-25)
PROC: B2151ZZ Fluoroscopy of Left Heart using Low Osmolar Contrast (ICD-10-PCS; principal; 2017-05-25)
DX: J69.0 Pneumonitis due to inhalation of food and vomit (principal); G04.81 Other encephalitis and encephalomyelitis; E43 Unspecified severe protein-calorie malnutrition; N17.0 Acute kidney failure with tubular necrosis; I42.9 Cardiomyopathy, unspecified; J98.11 Atelectasis; N18.3 Chronic kidney disease, stage 3 (moderate); E11.22 Type 2 diabetes mellitus with diabetic chronic kidney disease; N48.1 Balanitis; N41.9 Inflammatory disease of prostate, unspecified; K74.60 Unspecified cirrhosis of liver; K52.9 Noninfective gastroenteritis and colitis, unspecified; E78.5 Hyperlipidemia, unspecified; N48.6 Induration penis plastica; I12.9 Hypertensive chronic kidney disease with stage 1 through stage 4 chronic kidney disease, or unspecified chronic kidney disease; J44.9 Chronic obstructive pulmonary disease, unspecified; I65.29 Occlusion and stenosis of unspecified carotid artery; I70.1 Atherosclerosis of renal artery; D64.9 Anemia, unspecified; K29.70 Gastritis, unspecified, without bleeding; M10.9 Gout, unspecified; R13.10 Dysphagia, unspecified; D69.6 Thrombocytopenia, unspecified; E83.42 Hypomagnesemia; R13.12 Dysphagia, oropharyngeal phase; Z88.0 Allergy status to penicillin; Z88.2 Allergy status to sulfonamides; Z68.26 Body mass index [BMI] 26.0-26.9, adult; Z90.49 Acquired absence of other specified parts of digestive tract; Z79.82 Long term (current) use of aspirin; Z79.899 Other long term (current) drug therapy; Z86.73 Personal history of transient ischemic attack (TIA), and cerebral infarction without residual deficits; Z88.8 Allergy status to other drugs, medicaments and biological substances
CPT/HCPCS: 10797

== ENCOUNTER 2017-05-25 13:03 | Inpatient (IN) | payer BC ==
[~2017-05-25] VITALS: Ht 175.3 cm; Wt 86.6 kg
--- NOTE | ~2017-05-25 | PLAN ---
[facility] [place] [address] REHAB UNIT PLAN OF CARE Name: ROWAN CHACON Room #: 514-P ADM IN M.R.#: [id number] Admission: 05/25/17 Attend Phys: Shay Clemens MD Discharge: Date of : 62 Report #: [id number] THIS REPORT FOR: //name// CC: Shay Fink DATE OF SERVICE: 05/28/2017 PROGRESS NOTE/OVERALL PLAN OF CARE SUBJECTIVE: The patient is seen back in followup. He is in no distress. Last recorded temperature is 98.5, pulse 118, respirations 19, blood pressure 159/77. He is in no distress. Last recorded temperature is 36.6, pulse 104, respirations 19, blood pressure 156/97. He is progressing in therapies with transfers, mod assist. Gait 200 feet, min assist with a front-wheeled walker. In occupational therapy, lower body dressing is min assist. Speech therapy reveals znid-nb-[id number] comprehensive deficits. He is on a regular diet with all liquids. ASSESSMENT: 1. Critical illness myopathy. 2. Autoimmune encephalitis and chronic immunosuppression. 3. Aspiration pneumonia. 4. Oropharyngeal dysphagia. 5. Recent gastroenteritis. 6. Severe sepsis. 7. Recent renal insufficiency, acute on chronic. 8. History of new cardiomyopathy. 9. Gout, right great toe in the past. 10. Diabetes mellitus type 2. PLAN: The overall plan of care is based on the preadmission screen, post-admission physician evaluation and information garnered from therapy assessments. 1. Estimated length of stay is probably 2-3 weeks. 2. Medical prognosis is reasonably good. 3. Anticipated interventions includes the interdisciplinary acute inpatient rehabilitation program with a goal of maximizing the patient's functional independence, so that he can hopefully return back to his prior living situation. 4. Anticipated functional outcomes would be for the patient to become modified independent with transfers, mobility, and ADLs so that he can hopefully return back to his prior living situation. Also to improve as far as cognition. 5. Discharge destination would be back home where he lives with his . 6. Expected therapy by discipline includes PT and OT and speech 1 hour per day [address] [address] REHAB UNIT PLAN OF CARE Name: ROWAN CHACON Room #: 514-P [facility] IN .R.#: [id number] Admission: 05/25/17 Attend Phys: Shay Clemens MD Discharge: Date of : 62 Report #: [id number] each 5 days a week throughout the duration of the acute inpatient rehabilitation stay. <ELECTRONICALLY SIGNED> By: Shay Clemens MD 05/30/17 1504 1249 00 Shay Clemens MD /PMT
--- NOTE | ~2017-05-25 | H ---
[facility] [place] [address] HISTORY AND PHYSICAL Name: ROWAN CHACON Room #: 514-P ADM IN M.R.#: [id number] Admission: 05/25/17 Attend Phys: Shay Clemens MD Discharge: Date of : 62 Report #: [id number] THIS REPORT FOR: //name// CC: Shay Fink DATE OF SERVICE: 05/26/2017 HISTORY AND PHYSICAL AND POSTADMISSION PHYSICIAN EVALUATION HISTORY OF PRESENT ILLNESS: The patient is a 56-year-old white male known to me, who was on the acute inpatient rehabilitation ele from 05/10/2017 through 05/23/2017. The patient was originally admitted with critical illness myopathy, renal insufficiency, autoimmune encephalitis. He was progressing in therapies with advancement in mobility. Please see the prior history and physical and discharge summary. While on the acute inpatient rehab lee, he had an episode of substernal chest pain. Immediately prior to his admission stay on the rehab lee, he had had a new diagnosis of a cardiomyopathy of unknown origin with an ejection fraction of 25%. He was transferred from rehab to the acute care side of the hospital and had an extensive workup. CTA of the chest was done to rule out pulmonary embolism; however, a new right-sided right lower lobe infiltrate was noted, not originally seen on the chest x-ray. The patient was kept on heparin during his admission. EKG shows suspicious changes consistent with an anterolateral ischemia. Cardiology was consulted. Cardiac cath was undertaken with severity noted to be mild in general. During the hospital stay, he was found to have a magnesium level of 0.8, which is markedly depressed. He was started on IV magnesium. He was thought to be ready for readmission to the acute inpatient rehabilitation lee. He has a diagnosis of aspiration pneumonia with oropharyngeal dysphagia. PAST MEDICAL HISTORY: Includes multiple prior CVAs, autoimmune cerebritis, and bipolar disease with severe paranoia in the past. MEDICATIONS: Please see the full medication listing. ALLERGIES: ALLERGIC TO NONSTEROIDALS, PENICILLIN AND SULFA. PAST SURGICAL HISTORY: Includes appendectomy, cholecystectomy, hernia repair, penile prosthesis x 2 with history of Peyronie's syndrome and shoulder surgeries bilaterally. FAMILY HISTORY: Noted to be adopted. 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 , lives with his in a house. His did help him some with self-cares. He used a walker to get around. It had several falls the last couple of weeks [facility] [address] [place] [address] HISTORY AND PHYSICAL Name: ORWAN CHACON Room #: 514-P [facility] IN [facility].#: [id number] Admission: 05/25/17 Attend Phys: Shay Clemens MD Discharge: Date of : 62 Report #: [id number] prior to the most recent rehab admission. REVIEW OF SYSTEMS: Without obvious complaints of chest pain, shortness of breath or abdominal discomfort. PHYSICAL EXAMINATION: GENERAL: The patient was seen earlier. He was in no distress. VITAL SIGNS: Temperature is 36.7, pulse 139, respirations 20, blood pressure was 140/77. When seen, he was sleepy, but aroused. HEENT: Facies were symmetric. CHEST: Some decreased breath sounds throughout, otherwise clear. CARDIOVASCULAR: Sounded regular rate and rhythm. ABDOMEN: Bowel sounds positive, nontender. GENITOURINARY AND RECTAL: Deferred. NEUROLOGIC: Functional range of motion of both upper extremities with strength grade 4-/5. DTRs are trace to 1. Lower extremities functional range of motion with strength grade 3+ to 4-/5. DTRs trace to 1. Prior to rehab readmission, he has been doing some limited short distance ambulation 25 feet min assist. ASSESSMENT: 1. Critical illness myopathy. 2. Autoimmune encephalitis and chronic immunosuppression. 3. Aspiration pneumonia. 4. Oropharyngeal dysphagia. 5. Recent gastroenteritis. 6. Severe sepsis. 7. Recent renal insufficiency, acute on chronic. 8. History of new cardiomyopathy. 9. Gout, right great toe in the past. 10. Diabetes mellitus type 2. 11. Severe malnutrition. PLAN: The patient is admitted for acute in-hospital inpatient rehabilitation. From a postadmission physician evaluation perspective, there are no relevant changes since the preadmission screening. Please see the above review of prior and current medical and functional conditions and comorbidities. Please see the patient's previous and current functional status. As far as risk of complications, the patient has multiple medical comorbidities as noted above. The initial plan of care involves the interdisciplinary acute inpatient rehabilitation program with goal of maximizing the patient's functional independence, so that he can hopefully return back to his prior living situation. Measurable functional goals would be for the patient to become modified, independent with transfers, mobility, ADLs that he can hopefully return back to his prior living situation. Prognosis is reasonably good with estimated length of stay, probably at least 2 weeks and likely 3 weeks or as [facility] [address] [place] [address] HISTORY AND PHYSICAL Name: ROWAN CHACON Room #: 514-P ADM IN M.R.#: [id number] Admission: 05/25/17 Attend Phys: Shay Clemens MD Discharge: Date of : 62 Report #: [id number] indicated pending his progress. Potential barriers would include his multiple medical comorbidities and decreased functional status. <ELECTRONICALLY SIGNED> By: Shay Clemens MD 05/30/17 1504 1149 [id number] Shay Clemens MD /[facility]
[2017-05-25] MEDS ORDERED: NITRO-BID1 GM TOP (17:31)
[2017-05-25] MEDS ORDERED: ATROPINE S0.1 MG/1 M IV PUSH (17:31)
[2017-05-25] MEDS ORDERED: ATIVAN1 MG PO (17:32)
[2017-05-26 06:25] LABS: HEMATOCRIT 25.9 % (42.0-52.0); HEMOGLOBIN 8.7 gm/dL (14.0-18.0); MCH 31.7 pg (26.0-34.0); MCHC 33.4 g/dL (28.0-37.0); MCV 94.9 fL (80.0-100.0); RBC 2.73 mil/uL (4.50-6.00); RDW 27.1 % (10.5-14.5); WBC 6.8 thou/uL (4.0-11.0)
[2017-05-26 06:36] LABS: CALCIUM 8.1 mg/dL (8.5-10.1); CREATININE 1.1 mg/dL (0.7-1.3); MAGNESIUM 1.7 mg/dL (1.8-2.4); POTASSIUM 5.5 mmol/L (3.5-5.1)
[2017-05-26 07:57] VITALS: BP 140/77
[2017-05-26 20:00] VITALS: BP 134/84
[2017-05-27 08:30] VITALS: BP 136/85
[2017-05-27 19:30] VITALS: BP 159/77
[2017-05-28 07:22] VITALS: BP 156/97
[2017-05-28 20:00] VITALS: BP 132/62
[2017-05-29 09:30] VITALS: BP 144/93
[2017-05-29 19:50] VITALS: BP 134/73
[2017-05-30 09:25] VITALS: BP 128/79
[2017-05-30 19:35] VITALS: BP 125/67
[2017-05-31 06:09] LABS: HEMATOCRIT 27.7 % (42.0-52.0); HEMOGLOBIN 9.2 gm/dL (14.0-18.0); MCH 32.1 pg (26.0-34.0); MCHC 33.2 g/dL (28.0-37.0); MCV 96.9 fL (80.0-100.0); RBC 2.86 mil/uL (4.50-6.00); RDW 26.4 % (10.5-14.5); WBC 6.8 thou/uL (4.0-11.0)
[2017-05-31 06:15] LABS: CALCIUM 8.2 mg/dL (8.5-10.1); MAGNESIUM 1.1 mg/dL (1.8-2.4); POTASSIUM 4.5 mmol/L (3.5-5.1)
[2017-05-31 19:25] VITALS: BP 117/72
[2017-06-01 09:20] VITALS: BP 127/68
[2017-06-01 19:30] VITALS: BP 127/66
[2017-06-02 09:51] VITALS: BP 136/75
[2017-06-03 09:27] VITALS: BP 111/69
[2017-06-03 20:00] VITALS: BP 136/69
[2017-06-04 07:30] VITALS: BP 106/56
[2017-06-04 19:35] VITALS: BP 139/70
[2017-06-05 07:58] VITALS: BP 112/63
[2017-06-05 19:27] VITALS: BP 136/77
[2017-06-06 09:00] VITALS: BP 116/66
[2017-06-06 20:00] VITALS: BP 141/86
[2017-06-06] MEDS ORDERED: LIPITOR 20 MG T20 M1 PO (21:48)
[2017-06-06] MEDS ORDERED: CARVEDILOL25 MG PO (21:48)
[2017-06-06] MEDS ORDERED: ASPIR 8181 MG PO (21:49)
[2017-06-06] MEDS ORDERED: LAMICTAL 25 MG25 M1 PO ×2 (21:50)
[2017-06-06] MEDS ORDERED: SEROQUEL 100 M100 M1 PO (21:51)
[2017-06-06] MEDS ORDERED: LORAZEPAM 0.50.5 M1 PO (21:51)
[2017-06-06] MEDS ORDERED: CARBIDOPA-LEVO1 EA11 PO ×2 (21:52)
[2017-06-06] MEDS ORDERED: MAGNESIUM400 MG PO (21:53)
[2017-06-06] MEDS ORDERED: MULTIVITAMINS1 EAC7 PO (21:54)
[2017-06-06] MEDS ORDERED: PROTONIX40 M1 PO (21:54)
[2017-06-07 07:47] VITALS: BP 110/76
[2017-06-07 12:27] VITALS: BP 110/76
[2017-06-07 16:03] VITALS: BP 110/76
== END 2017-06-07 16:18 | disposition home or self-care (01) | DRG 91 ==
LOC: ADMC 13:03 → ENTRNSPT 06-07 16:12
PROVIDERS: Internal Medicine; Nurse Practitioner Family
DX: G72.81 Critical illness myopathy (principal); G04.90 Encephalitis and encephalomyelitis, unspecified; J69.0 Pneumonitis due to inhalation of food and vomit; A41.9 Sepsis, unspecified organism; R65.20 Severe sepsis without septic shock; E43 Unspecified severe protein-calorie malnutrition; N17.0 Acute kidney failure with tubular necrosis; I42.9 Cardiomyopathy, unspecified; J98.11 Atelectasis; B37.0 Candidal stomatitis; R13.12 Dysphagia, oropharyngeal phase; M10.9 Gout, unspecified; E83.42 Hypomagnesemia; N18.9 Chronic kidney disease, unspecified; E11.22 Type 2 diabetes mellitus with diabetic chronic kidney disease; I12.9 Hypertensive chronic kidney disease with stage 1 through stage 4 chronic kidney disease, or unspecified chronic kidney disease; E78.5 Hyperlipidemia, unspecified; N48.6 Induration penis plastica; J44.9 Chronic obstructive pulmonary disease, unspecified; K52.9 Noninfective gastroenteritis and colitis, unspecified; I25.10 Atherosclerotic heart disease of native coronary artery without angina pectoris; I95.9 Hypotension, unspecified; I70.1 Atherosclerosis of renal artery; D64.9 Anemia, unspecified; K29.70 Gastritis, unspecified, without bleeding; R53.81 Other malaise; N41.9 Inflammatory disease of prostate, unspecified; M19.011 Primary osteoarthritis, right shoulder; K74.60 Unspecified cirrhosis of liver; N48.1 Balanitis; L89.159 Pressure ulcer of sacral region, unspecified stage; R00.0 Tachycardia, unspecified; Z88.2 Allergy status to sulfonamides; Z88.0 Allergy status to penicillin; Z88.8 Allergy status to other drugs, medicaments and biological substances; Z90.49 Acquired absence of other specified parts of digestive tract; Z68.27 Body mass index [BMI] 27.0-27.9, adult
CPT/HCPCS: 10112

== ENCOUNTER → 2019-06-17 | Outpatient (CLI) | payer OTHER ==
[~2019-06-17] MED LIST changes: +ATIVAN1 MG PO; +ATROPINE S0.1 MG/1 M IV PUSH; +CARVEDILOL25 MG PO; +LIPITOR 20 MG T20 M1 PO; +LORAZEPAM 0.50.5 M1 PO; +MAGNESIUM400 MG PO; +MULTIVITAMINS1 EAC7 PO; +NITRO-BID1 GM TOP; +PROTONIX40 M1 PO
== END ==
LOC: SJCVCIMAG 08:40
DX: I65.23 Occlusion and stenosis of bilateral carotid arteries (principal); I25.10 Atherosclerotic heart disease of native coronary artery without angina pectoris; E78.49 Other hyperlipidemia; E11.9 Type 2 diabetes mellitus without complications; I70.1 Atherosclerosis of renal artery; I65.29 Occlusion and stenosis of unspecified carotid artery; I10 Essential (primary) hypertension; I77.6 Arteritis, unspecified; I42.9 Cardiomyopathy, unspecified

== ENCOUNTER → 2019-07-11 | Outpatient (CLI) | payer OTHER | LOC: RAD 11:18 | DX: R07.89 Other chest pain (principal) ==

== ENCOUNTER → 2019-12-18 | Outpatient (CLI) | payer OTHER | LOC: SJCVCIMAG 08:24 | PROVIDERS: ATTEND Internal Medicine Cardiovascular Disease | DX: I10 Essential (primary) hypertension (principal) ==

== ENCOUNTER → 2020-06-14 | Outpatient (CLI) | payer BC | LOC: RAD 09:35 | PROVIDERS: ATTEND Internal Medicine | DX: M19.011 Primary osteoarthritis, right shoulder (principal); M19.012 Primary osteoarthritis, left shoulder; M10.9 Gout, unspecified ==

== ENCOUNTER → 2020-06-16 | Outpatient (CLI) | payer BC | LOC: SJCVCIMAG | PROVIDERS: ATTEND Internal Medicine Cardiovascular Disease | DX: I35.8 Other nonrheumatic aortic valve disorders (principal); I25.10 Atherosclerotic heart disease of native coronary artery without angina pectoris; I73.9 Peripheral vascular disease, unspecified; E11.9 Type 2 diabetes mellitus without complications; E78.5 Hyperlipidemia, unspecified; I10 Essential (primary) hypertension; Z86.73 Personal history of transient ischemic attack (TIA), and cerebral infarction without residual deficits ==

== ENCOUNTER → 2020-12-15 | Outpatient (CLI) | payer BC | LOC: SJCVCIMAG 08:23 | PROVIDERS: ATTEND Internal Medicine Cardiovascular Disease | DX: I11.9 Hypertensive heart disease without heart failure (principal); I25.10 Atherosclerotic heart disease of native coronary artery without angina pectoris; J44.9 Chronic obstructive pulmonary disease, unspecified; E78.5 Hyperlipidemia, unspecified; E11.9 Type 2 diabetes mellitus without complications; I63.9 Cerebral infarction, unspecified ==